=== PATIENT | female | born 1970 | race Caucasian/White ===

== ENCOUNTER 2021-05-05 12:41 | Inpatient (IN) | payer OTHER ==
--- OUTSIDE RECORDS SUMMARY | 2021-05-05 12:47 | XMS REPORT | Continuity of Care Document ---
:1970 Author Organization [facility] t Address [address] [place] [address] Care Team Providers Name Role Phone Troy Marques Primary Care Physician Unavailable HEIDE_ Attending Clinician Unavailable Reji Alanis Attending Clinician Unavailable Reji Branham Attending Clinician Unavailable Katerina Attending Clinician Unavailable Patt Attending Clinician Unavailable Clarissa Davison Attending Clinician Unavailable Jos Smith Attending Clinician Unavailable ANUEL BAH Attending Clinician Unavailable Ngozi Lincoln Attending Clinician Unavailable ALEX BENAVIDES Attending Clinician Unavailable CHELE FAUSTIN Attending Clinician Unavailable Vernon Attending Clinician Unavailable ESDRAS Attending Clinician Unavailable WALT HAGER Attending Clinician Unavailable Jos Smith Attending Clinician Unavailable Jos Smith Attending Clinician Unavailable Itz GOODMAN Attending Clinician Unavailable Carlos DIAZ Attending Clinician Unavailable Moris VERDE Attending Clinician Unavailable CLAUDETTE Attending Clinician Unavailable Jeison MANUEL Attending Clinician Unavailable VICKY MENSAH Attending Clinician Unavailable Ngozi SAGE Attending Clinician Unavailable Physician, Primary Care Admitting Clinician Unavailable HEIDE_ Admitting Clinician Unavailable Reji Alanis Admitting Clinician Unavailable Patt Admitting Clinician Unavailable Physician, Primary or Family Admitting Clinician UnavailCHELE Barr Admitting Clinician Unavailable Vernno Admitting Clinician Unavailable ESDRAS Admitting Clinician Unavailable SEVEN Admitting Clinician Unavailable Jos Smith Admitting Clinician Unavailable Payers Payer Name Policy Type Policy Number Effective Date Expiration Date S ource RCA SSI PENDING [id number] 2018 00:00:00 [facility] [id number] 2020 [facility] - 00:00:00 STAR (MEDICAID HMO) Problems Condition Condition Condition Status Onset Resolution Last Treating Co mments Source Name Details Category Date Date Treatment Clinician Date SOB Diagnosis Active 2020-09-09 Mem oria 7-16 23:52:00 l SOB 00:00: Raúl 00 Active 09/09/2020 [facility] ACUTE Diagnosis Active 2020-09-25 Mem oria RESPIRATOR 7-16 12:09:00 l Y FAILURE ACUTE 00:00: Ace n WITH RESPIRATOR 00 HYPOXIA Y FAILURE WITH HYPOXIA Active [facility] WEAKNESS , Diagnosis Active 2019-07-10 Memoria VOMITING 5-15 17:37:00 l WEAKNESS 00:00: Ace n , VOMITING 00 Active 07/10/2019 [facility] 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 Problem 09/12/2020 [facility] History of Past Illness Condition Condition Condition Status Onset Resolution Last Treating Co mments Source Name Details Category Date Date Treatment Clinician Date Candidal Problem 2019-07-13 2019-07-13 Memoria stomatitis 5-16 21:05:01 21:05:01 l Candidal 17:00: Ace n stomatitis 00 07/11/2019 07/13/2019 [facility] Allergies, Adverse Reactions, Alerts Allergy Allergy Status Severity Reaction(s) Onset Inactive Treating Comm ents Source Name Type Date Date Clinician sulfamet DA Active U UNKNOWN 2020-02 [facility] hoxazole 0-14 [place] [facility]: [facility] 00 are [facility] trimetho DA Active U UNKNOWN 2020-02 [facility] prim 0-14 [place] 00:00: Health 00 are [facility] sulfamet DA Active U 2020-02 [facility] hoxazole 0-[facility] [place] 00:[facility]: [facility] [address] trimetho DA Active U 2020-02 [facility] prim 0-14 [place] 00:[facility]: Health [address] Unable DA Active U [facility] 4- [facility] 00:00: 00 sulfamet DA Active [place] Hives [facility] hoxazole 4 00:00: 00 trimetho DA Active [place] Hives [facility] prim 4 00:00: 00 sulfamet DA Active [place] [facility] [place] [facility] prim [facility] [place] [facility] sulfamet DA Active [place] [facility] hoxazole 9 [place] [facility] trim[facility]o [place] Active [place] [facility] prim 9 [place] 00:[facility]: [facility] No Known DA Active [facility] Allergie 8-27 [facility] 00:00: Health 00 are [facility] Bactrim Bactrim Active Sandra Donisann Bactrim Drug Active [facility] Bactrim Drug Active [facility] Bactrim Drug Active [facility] Bactrim Drug Active [facility] Bactrim Drug Active [facility] Bactrim Drug Active [facility] Bactrim Drug Active [facility] Bactrim Drug Active [facility] Bactrim Drug Active [facility] Bactrim Drug Active [facility] Bactrim Drug Active [facility] Bactrim Drug Active [facility] Bactrim Drug Active [facility] Bactrim Drug Active [facility] Bactrim Drug Active [facility] Bactrim Drug Active [facility] Bactrim Drug Active [facility] Social History Smoking Status Start Date Stop Date Source Social History 2020-09-11 09:44:43 2020-09-11 09:44:43 [facility] Social History 2019-07-11 07:01:51 [facility] Medications Ordered Filled Start Stop Current Ordering Indication Dosage Frequency Signature Comments Components Source Medication Medication Date Date Medication? Clinician (SIG) Name Name vancomycin Yes 2000 mg: Me moria + Sodium 7-19 infuse l Chloride 05:00: over 2.5 Rody nn 0.9% IV 250 00 hours For mL adult patients only: Round to nearest 250 mg per Medical Staff approval MEDICATION WASTE Product Size: 1000 mg Product Wasted: ___ mg vancomycin No 2000 mg: Me moria + Sodium 7-18 infuse l Chloride 21:00: over 2.5 Rody nn 0.9% IV 250 00 hours For mL adult patients only: Round to nearest 250 mg per Medical Staff approval MEDICATION WASTE Product Size: 1000 mg Product Wasted: ___ mg Vancomycin Yes Notes: Memor ia 7-18 Vancomycin l 20:21: Pharmacy Raúl 31 Dosing Protocol PHARMAC Y USE ONLY Note: This is not a medication order. This is a consultati on order. Protonix Yes Notes: Memoria 7-18 Tablet l 14:00: should not [place] 00 be chewed or crushed. (Same as: Protonix) Prednisone No Notes: Memor ia 7-18 Take with l 14:00: food. Raúl 00 Atovaquone Yes Notes: Memor ia 7-18 Shake l 13:00: well. Give Raúl 00 with meals. (Same As: Mepron) Azithromyci No Notes: Carlos cheko n 7-18 (Same As: l 06:07: Zithromax Raúl 00 IV) Diflucan Yes Notes: Memoria 7-18 (Same as: l 04:59: Diflucan) [place] 00 Hazardous Drug Group 3:Reproduc tive risk Hazardous Drug -- Refer to safe handling procedure PPE Matrix Diflucan No Notes: Memoria 7-18 (Same as: l 02:11: Diflucan) [place] 00 Hazardous Drug Group 3:Reproduc tive risk Hazardous Drug -- Refer to safe handling procedure PPE Matrix Prednisone Yes Notes: Memor ia 7-18 Take with l 00:15: food. Dextrose Yes 12.5 gm, Memor ia 50% Syringe 7-17 25 mL, l (D50W) 19:43: Route: IVP, Drug Form: INJ, Dosing Weight 50, kg, PRN, PRN Blood Glucose Results, Start date: 09/10/20 14:43:00 CDT, Duration: 30 day, Stop date: 10/10/20 14:42:00 CDT, 0 Glucagon Yes 1 mg, Memoria 7-17 Route: IM, l 19:43: Drug form: PDR/INJ, PRN, Dosing Weight 50, kg, PRN Blood Glucose Results, Start date: 09/10/20 14:43:00 CDT, Duration: 30 day, Stop date: 10/10/20 14:42:00 CDT, 0 Docusate Yes Notes: Memoria 7-17 (Same as: l 19:43: Colace) (Do Not Crush) POLYETHYLEN Yes Notes: Carlos cheko E GLYCOL 7-17 Dissolve l 3350 19:43: in 8 oz of water or juice. (Same as: Miralax) Bisacodyl Yes Notes: Memori a 7-17 (Same As: l 19:43: Dulcolax, Bisco-Lax) Ondansetron Yes Notes: Carlos cheko 7-17 (Same as: l 19:43: Zofran) MEDICATION WASTE Product Size: 4 mg Product Wasted: ___ mg Diphenhydra Yes 25 mg, 1 Me moria mine 7-17 tab, l 19:43: Route: PO, Drug form: TAB, Q6H, Dosing Weight 50, kg, PRN as needed for allergy symptoms, Start date: 09/10/20 14:43:00 CDT, Duration: 30 day, Stop date: 10/10/20 14:42:00 CDT, 0 Melatonin Yes Notes: Memori a 7-17 (Same as: l 19:43: Melatonin) Trazodone Yes Notes: Memori a - (Same As: l 19:43: Desyrel) Raúl 00 Acetaminoph Yes Notes: Do M emoria en 09-10 not exceed l 19:43: 4 gm/day. Raúl 00 (Same as: Tylenol) Hydralazine Yes Notes: Carlos cheko - (Same as: l 19:43: Apresoline ) Push over 5 minutes Nicotine Yes Notes: Memoria - (Same as: l 19:43: Habitrol) "Remove old patch before applicatio n of new patch" WASTE: F/P - P Waste Black; E - P Waste Black Acetaminoph Yes Notes: Carlos cheko en 325 MG / 09-10 (Same as: l Hydrocodone 19:43: [place] Rody nn Bitartrate 00 325/5) Do 5 MG Oral not exceed Tablet 4gm/day of [[place] acetaminop 5/325] hen. Tessalon Yes Notes: Memoria Perles 09-10 (Same As: l 19:43: Tessalon Perles) "Do Not Crush" Mucinex Yes Notes: Memoria 09-10 (Same as: l 19:43: Guaifenesi n LA, Humibid LA, Mucinex) "Do Not Crush" Take medication with plenty of water. Simethicone Yes Notes: Carlos cheko 09-10 (Same as: l 19:43: Mylicon) Maalox Yes Notes: Memoria Advanced 09-10 (aluminum l Regular 19:43: hydroxide- Herm radha Strength 00 magnesium SUSP hyd-simeth icone 200-200-20 mg/5ml 30 ml ud BEBETO) Albuterol Yes Notes: Memori a 0.833 MG/ML 09-10 (Same as: l / 19:43: Duoneb) Ipratropium 00 [place] 0.167 MG/ML Inhalant Solution [DuoNeb] phenol Yes Notes: Memoria 09-10 WASTE: F/P l 19:43: - Black; E Raúl 00 - Municipal Trash Bin Artificial Yes 1 drp, Memor ia Tears - Route: l 19:43: Each [place] 00 Affected Eye, QID, Drug form: SOLN, PRN Dry Eyes, Start date: 09/10/20 14:43:00 CDT, Duration: 30 day, Stop date: 10/10/20 14:42:00 CDT, 0 Lidocaine Yes Notes: Memori a 0.05 MG/MG -17 Apply only l Transdermal 19:43: once for He rmann Patch 00 up to 12 hours in a 24-hour period (12 hours on and 12 hours off). (Same as: Aspercreme Lidocaine Patch) "Remove old patch before applicatio n of new patch" Lactulose Yes Notes: Memori a 667 MG/ML -17 (Same l Oral 19:43: as:Chronul [place] Solution 00 ac) Benzocaine Yes Notes: Memor ia 15 MG / -17 Same as: l Menthol 3.6 19:43: Cepacol Her torres MG Lozenge 00 [Cepacol Sore Throat Pain Relief 15/3.6] Potassium Yes Notes: Memori a Chloride - (Same as: l 19:43: K-Dur 20) "Do Not Crush" Give with food and full glass of water For patients unable to swallow tablet, dissolve in one half glass of water. Allow about 2 minutes for the tablets to disintegra te. Stir before giving to prepare slurry and administer . Please exclude Patient s with feeding tube less than 14 Danish (Dobhoff, J-tube etc) and pediatric and patients. potassium Yes Notes: Memori a phosphate-s - (Same as: l odium 19:43: Phos-NaK) phosphate 00 Each 1.5 250 mg-280 gm pkt has mg-160 mg 250mg oral powder phosphorou for s. Mix reconstitut w/2.5oz ion water and stir. potassium Yes Notes: Memori a phosphate -17 (Same as: l 19:43: K [place] Phosphate. ) Do not infuse phosphorou s concurrent ly in the same line as TPN or IVF that contains calcium. For double lumen central lines, phosphorou s may be infused in a separate lumen from TPN. 1 mMol phoshate has 1.47 mEq potassium Infuse over 4 hours sodium Yes Notes: Memoria phosphate 7-17 Infuse l 19:43: over 4 [place] 00 hour. Do not infuse phosphorou s concurrent ly in the same line as TPN or IVF that contains calcium. For double lumen central lines, phosphorou s may be infused in a separate lumen from TPN. Magnesium Yes Notes: Memori a Sulfate 09-10 WASTE: F/P l 19:43: - Sink; E [place] 00 - Municipal Trash Bin Magnesium Yes Notes: Memori a Oxide - (Same as: l 19:43: Mag-Ox [place] 400) Magnesium oxide [id number] g elemental magnesium Dose=____m g magnesium oxide (___mg elemental magnesium) Calcium Yes Notes: Memoria Gluconate - WASTE: F/P l 19:43: - Sink; E Raúl 00 - Municipal Trash Bin Diflucan No 400 mg, Memori a 7-17 200 mL, l 16:00: Route: [place] 00 IVPB, Drug form: INJ, [id number], Dosing Weight 50, kg, Start date: 09/10/20 11:00:00 CDT, Duration: 7 day, Stop date: 09/16/20 11:00:00 CDT, ABX Indication : ED - Suspected Sepsis, 0 nurse to No nurse to Memor ia update - update l ht,wt,aller 12:30: ht,wt,quentin Raúl gy profile 00 rgy profile, reminder, Drug form: MISC, Route: MISC, Q10Min, 09/10/20 7:30:00 CDT, Stop date: 10/10/20 7:20:00 CDT, 0 Albuterol Yes Notes: Memori a 0.833 MG/ML -17 (Same as: l / 08:00: Duoneb) Raúl Ipratropium 00 [place] 0.167 MG/ML Inhalant Solution cefepime No Notes: Memoria 7-17 (Same As: l 07:00: Maxipime) MEDICATION WASTE Product Size: 1000 mg Product Wasted: ___ mg Lovenox Yes Notes: Memoria 7-17 (Same as: l 07:00: Lovenox) [place] 00 Acetaminoph No Notes: Do M emoria en 09-10 not exceed l 06:08: 4 gm/day. [place] (Same as: Tylenol) Guaifenesin Yes Notes: Carlos cheko -17 (Same as: l 06:08: Robitussin ) Albuterol Yes Notes: Memori a 0.833 MG/ML - (Same as: l / 06:08: Duoneb) Ipratropium 00 [place] 0.167 MG/ML Inhalant Solution Sodium Yes 1,000 mL, Memori a Chloride - Rate: 100 l 0.9% IV 06:08: ml/hr, Raúl 1,000 mL 00 Infuse over: 10 hr, Route: IV, Dosing Weight 61.364 kg, Total Volume: 1,000, Start date: 09/10/20 1:08:00 CDT, Duration: 30 day, Stop date: 10/10/20 1:07:00 CDT, BSA: 1.65 m2, 0 Saline Yes Notes: Memoria Flush 0.9% -17 (Same as: l 06:08: BD [place] 00 Posiflush) Nystatin Yes Notes: Memoria 545820 -17 (Same l UNT/ML Oral 06:08: as:Mycosta Raúl Suspension 00 tin) Shake well. Ceftriaxone No 1 gm, Memor ia 09-10 Route: l 04:48: IVPB, Raúl 00 ONCE, Dosing Weight 61.364, kg, Priority: STAT, Start date: 09/09/20 23:48:00 CDT, Stop date: 09/09/20 23:48:00 CDT, ABX Indication : Pneumonia Azithromyci Yes Notes: Carlos cheko n -17 (Same As: l 04:48: Zithromax Raúl 00 IV) Albuterol No Notes: Memori a 0.833 MG/ML 7-17 (Same as: l / 03:09: Duoneb) Raúl Ipratropium 00 [place] 0.167 MG/ML Inhalant Solution methylPREDN Yes Notes: Carlos cheko ISolone 7-17 (Same l SODium 03:08: as:Solu-ME Rody nn SUCCinate 00 DROL, A-Methapre d) fluconazole Yes 200 mg = 1 Memoria 200 mg oral 5-16 tab, PO, l tablet 09:12: Daily, X Raúl 00 10 day, # 10 tab, 0 Refill(s) Fluconazole No Notes: Carlos cheko 5-16 (Same as: l 06:59: Diflucan) Raúl 00 Hazardous Drug Group 3:Reproduc tive risk Hazardous Drug -- Refer to safe handling procedure PPE Matrix Vital Signs Vital Name Observation Time Observation Value Comments Source Height/Length Measured 2021-03-14 08:36:38 153 cm Weight Dosing 2021-03-14 08:36:38 45.60 kg Height/Length Measured 2021-03-14 08:36:32 153 cm Weight Dosing 2021-03-14 08:36:32 45.60 kg Height/Length Measured 2021-03-14 08:36:09 153 cm Weight Dosing 2021-03-14 08:36:09 45.60 kg Height/Length Measured 2021-03-14 08:35:49 153 cm Weight Dosing 2021-03-14 08:35:49 45.60 kg Height/Length Measured 2021-03-14 08:34:50 153 cm Height/Length Measured 2021-03-14 08:34:49 153 cm Height/Length Measured 2021-03-14 08:34:46 153 cm Height/Length Measured 2021-03-14 08:34:42 153 cm Height/Length Measured 2021-03-14 08:34:28 153 cm Height/Length Measured 2021-03-14 08:34:22 153 cm Height/Length Measured 2021-03-14 08:34:19 153 cm Height/Length Measured 2019-03-10 13:21:45 Height/Length Measured 2019-03-10 07:47:35 Heart Rate 2020-09-12 04:51:41 [facility]l Systolic (mm Hg) 2020-09-12 04:51:30 Carlos rial [place] Diastolic (mm Hg) 2020-09-12 04:51:30 Mem orial Raúl Heart Rate 2020-09-12 04:51:30 [facility] [place] Temperature Oral (F) 2020-09-12 04:51:18 97.6 F [facility] [place] Respitory Rate 2020-09-12 01:00:00 Memori al [place] Heart Rate 2020-09-12 00:54:24 [facility] [place] Temperature Oral (F) 2020-09-12 00:54:00 98.5 F [facility] [place] Systolic (mm Hg) 2020-09-12 00:53:53 Carlos rial [place] Diastolic (mm Hg) 2020-09-12 00:53:53 Mem orial [place] Systolic (mm Hg) 2020-09-11 21:28:02 Carlos rial [place] Diastolic (mm Hg) 2020-09-11 21:28:02 Mem orial [place] Temperature Oral (F) 2020-09-11 21:27:14 98 F [facility] [place] Height 2020-09-11 20:21:00 152.4 cm [facility] Weight 2020-09-11 20:21:00 [facility] [place] Respitory Rate 2020-09-11 12:37:00 Memori al [place] Height 2020-09-11 01:02:00 152.4 cm [facility] [place] Weight 2020-09-11 01:02:00 [facility] [place] BMI Calculated 2020-09-11 01:02:00 Memori al [place] Respitory Rate 2020-09-10 23:20:00 Memori al [place] Height 2020-09-10 13:48:00 152.4 cm [facility] BMI Calculated 2020-09-10 13:48:00 Memori al [place] Weight 2020-09-10 13:48:00 [facility] [place] Initial DRG Weight: 2020-06-26 00:06:41 1.2791 Working DRG Weight: 2020-06-26 00:06:41 1.2791 Head exam ED 2020-06-26 00:06:41 atraumatic Height (ft in) 2020-06-26 00:06:41 4 feet 11.84 inches Weight for Nutrition 2020-06-26 00:06:41 41671\\S\\1520.308 Assessment Have you Lost Weight 2020-06-26 00:06:41 Yes Without Trying in the Past 6 Months? Weight (lbs) 2020-06-26 00:06:41 95 pounds 0.308 ounces Respiratory exam 2020-06-26 00:06:41 normal breath sounds /min 02 Sat by Pulse 2020-06-26 00:06:41 96 /min Oximetry Body Mass Index 2020-06-26 00:06:41 18.6 Body Mass Index (BMI) 2020-06-26 00:06:41 Normal Classification Height 2020-06-26 00:06:41 152\\S\\59.84 Pulse Rate 2020-06-26 00:06:41 83 /min Pulse Strength 2020-06-26 00:06:41 Normal /min Respiratory Rate 2020-06-26 00:06:41 20 /min Respiratory Depth 2020-06-26 00:06:41 Normal /min Respiratory Effort 2020-06-26 00:06:41 Spontaneous /min Respiratory Pattern 2020-06-26 00:06:41 Normal /min Temperature 2020-06-26 00:06:41 98.1\\S\\208.6 Weight 2020-06-26 00:06:41 17964.275\\S\\1520 Weight Measurement 2020-06-26 00:06:41 Built in Bedscale Method Weight for Nutrition 2020-06-22 18:19:06 20736\\S\\1520.308 Assessment Have you Lost Weight 2020-06-22 18:19:06 Yes Without Trying in the Past 6 Months? Weight (lbs) 2020-06-22 18:19:06 95 pounds 0.308 ounces Respiratory exam 2020-06-22 18:19:06 normal breath sounds /min 02 Sat by Pulse 2020-06-22 18:19:06 96 /min Oximetry Body Mass Index 2020-06-22 18:19:06 18.6 Body Mass Index (BMI) 2020-06-22 18:19:06 Normal Classification Height 2020-06-22 18:19:06 152\\S\\59.84 Pulse Rate 2020-06-22 18:19:06 83 /min Pulse Strength 2020-06-22 18:19:06 Normal /min Respiratory Rate 2020-06-22 18:19:06 20 /min Respiratory Depth 2020-06-22 18:19:06 Normal /min Respiratory Effort 2020-06-22 18:19:06 Spontaneous /min Respiratory Pattern 2020-06-22 18:19:06 Normal /min Temperature 2020-06-22 18:19:06 98.1\\S\\208.6 Weight 2020-06-22 18:19:06 92374.275\\S\\1520 Weight Measurement 2020-06-22 18:19:06 Built in Bedscale Method Initial DRG Weight: 2020-06-22 18:19:05 1.2791 Working DRG Weight: 2020-06-22 18:19:05 1.2791 Head exam ED 2020-06-22 18:19:05 atraumatic Height (ft in) 2020-06-22 18:19:05 4 feet 11.84 inches Initial DRG Weight: 2020-06-21 11:00:37 1.2791 Working DRG Weight: 2020-06-21 11:00:37 1.2791 Head exam ED 2020-06-21 11:00:37 atraumatic Height (ft in) 2020-06-21 11:00:37 4 feet 11.84 inches Weight for Nutrition 2020-06-21 11:00:37 88134\\S\\1520.308 Assessment Have you Lost Weight 2020-06-21 11:00:37 Yes Without Trying in the Past 6 Months? Weight (lbs) 2020-06-21 11:00:37 95 pounds 0.308 ounces Respiratory exam 2020-06-21 11:00:37 normal breath sounds /min 02 Sat by Pulse 2020-06-21 11:00:37 96 /min Oximetry Body Mass Index 2020-06-21 11:00:37 18.6 Body Mass Index (BMI) 2020-06-21 11:00:37 Normal Classification Height 2020-06-21 11:00:37 152\\S\\59.84 Pulse Rate 2020-06-21 11:00:37 83 /min Pulse Strength 2020-06-21 11:00:37 Normal /min Respiratory Rate 2020-06-21 11:00:37 20 /min Respiratory Depth 2020-06-21 11:00:37 Normal /min Respiratory Effort 2020-06-21 11:00:37 Spontaneous /min Respiratory Pattern 2020-06-21 11:00:37 Normal /min Temperature 2020-06-21 11:00:37 98.1\\S\\208.6 Weight 2020-06-21 11:00:37 94244.275\\S\\1520 Weight Measurement 2020-06-21 11:00:37 Built in Bedscale Method Initial DRG Weight: 2020-06-21 10:30:54 1.2791 Working DRG Weight: 2020-06-21 10:30:54 1.2791 Head exam ED 2020-06-21 10:30:54 atraumatic Height (ft in) 2020-06-21 10:30:54 4 feet 11.84 inches Weight for Nutrition 2020-06-21 10:30:54 22916\\S\\1520.308 Assessment Have you Lost Weight 2020-06-21 10:30:54 Yes Without Trying in the Past 6 Months? Weight (lbs) 2020-06-21 10:30:54 95 pounds 0.308 ounces Respiratory exam 2020-06-21 10:30:54 normal breath sounds /min 02 Sat by Pulse 2020-06-21 10:30:54 96 /min Oximetry Body Mass Index 2020-06-21 10:30:54 18.6 Body Mass Index (BMI) 2020-06-21 10:30:54 Normal Classification Height 2020-06-21 10:30:54 152\\S\\59.84 Pulse Rate 2020-06-21 10:30:54 83 /min Pulse Strength 2020-06-21 10:30:54 Normal /min Respiratory Rate 2020-06-21 10:30:54 20 /min Respiratory Depth 2020-06-21 10:30:54 Normal /min Respiratory Effort 2020-06-21 10:30:54 Spontaneous /min Respiratory Pattern 2020-06-21 10:30:54 Normal /min Temperature 2020-06-21 10:30:54 98.1\\S\\208.6 Weight 2020-06-21 10:30:54 26589.275\\S\\1520 Weight Measurement 2020-06-21 10:30:54 Built in Bedscale Method Height (ft in) 2020-06-21 10:08:51 4 feet 11.84 inches Weight for Nutrition 2020-06-21 10:08:51 00767\\S\\1520.308 Assessment Have you Lost Weight 2020-06-21 10:08:51 Yes Without Trying in the Past 6 Months? Weight (lbs) 2020-06-21 10:08:51 95 pounds 0.308 ounces Respiratory exam 2020-06-21 10:08:51 normal breath sounds /min 02 Sat by Pulse 2020-06-21 10:08:51 96 /min Oximetry Body Mass Index 2020-06-21 10:08:51 18.6 Body Mass Index (BMI) 2020-06-21 10:08:51 Normal Classification Height 2020-06-21 10:08:51 152\\S\\59.84 Pulse Rate 2020-06-21 10:08:51 83 /min Pulse Strength 2020-06-21 10:08:51 Normal /min Respiratory Rate 2020-06-21 10:08:51 20 /min Respiratory Depth 2020-06-21 10:08:51 Normal /min Respiratory Effort 2020-06-21 10:08:51 Spontaneous /min Respiratory Pattern 2020-06-21 10:08:51 Normal /min Temperature 2020-06-21 10:08:51 98.1\\S\\208.6 Weight 2020-06-21 10:08:51 26996.275\\S\\1520 Weight Measurement 2020-06-21 10:08:51 Built in Bedscale Method Initial DRG Weight: 2020-06-21 10:08:51 1.2791 Working DRG Weight: 2020-06-21 10:08:51 1.2791 Head exam ED 2020-06-21 10:08:51 atraumatic Initial DRG Weight: 2020-06-20 14:50:57 1.2791 Working DRG Weight: 2020-06-20 14:50:57 1.2791 Head exam ED 2020-06-20 14:50:57 atraumatic Height (ft in) 2020-06-20 14:50:57 4 feet 11.84 inches Weight for Nutrition 2020-06-20 14:50:57 22612\\S\\1520.308 Assessment Have you Lost Weight 2020-06-20 14:50:57 Yes Without Trying in the Past 6 Months? Weight (lbs) 2020-06-20 14:50:57 95 pounds 0.308 ounces Respiratory exam 2020-06-20 14:50:57 normal breath sounds /min 02 Sat by Pulse 2020-06-20 14:50:57 98 /min Oximetry Body Mass Index 2020-06-20 14:50:57 18.6 Body Mass Index (BMI) 2020-06-20 14:50:57 Normal Classification Height 2020-06-20 14:50:57 152\\S\\59.84 Pulse Rate 2020-06-20 14:50:57 93 /min Pulse Strength 2020-06-20 14:50:57 Normal /min Respiratory Rate 2020-06-20 14:50:57 20 /min Respiratory Depth 2020-06-20 14:50:57 Normal /min Respiratory Effort 2020-06-20 14:50:57 Spontaneous /min Respiratory Pattern 2020-06-20 14:50:57 Normal /min Temperature 2020-06-20 14:50:57 36.6\\S\\98 Weight 2020-06-20 14:50:57 24646.275\\S\\1520 Weight Measurement 2020-06-20 14:50:57 Built in Bedscale Method HEIGHT 2020-06-20 14:47:00 152 cm Initial DRG Weight: 2020-06-20 14:10:56 1.2791 Working DRG Weight: 2020-06-20 14:10:56 1.2791 Head exam ED 2020-06-20 14:10:56 atraumatic Have you Lost Weight 2020-06-20 14:10:56 Yes Without Trying in the Past 6 Months? Respiratory exam 2020-06-20 14:10:56 normal breath sounds /min 02 Sat by Pulse 2020-06-20 14:10:56 98 /min Oximetry Body Mass Index 2020-06-20 14:10:56 18.5 Height 2020-06-20 14:10:56 152.4\\S\\60 Pulse Rate 2020-06-20 14:10:56 93 /min Pulse Strength 2020-06-20 14:10:56 Normal /min Respiratory Rate 2020-06-20 14:10:56 20 /min Respiratory Depth 2020-06-20 14:10:56 Normal /min Respiratory Effort 2020-06-20 14:10:56 Spontaneous /min Respiratory Pattern 2020-06-20 14:10:56 Normal /min Temperature 2020-06-20 14:10:56 36.6\\S\\98 Weight 2020-06-20 14:10:56 34588.275\\S\\1520 Weight Measurement 2020-06-20 14:10:56 Built in Bedscale Method Initial DRG Weight: 2020-06-20 11:24:08 1.2791 Working DRG Weight: 2020-06-20 11:24:08 1.2791 Head exam ED 2020-06-20 11:24:08 atraumatic Have you Lost Weight 2020-06-20 11:24:08 Yes Without Trying in the Past 6 Months? Respiratory exam 2020-06-20 11:24:08 normal breath sounds /min 02 Sat by Pulse 2020-06-20 11:24:08 98 /min Oximetry Body Mass Index 2020-06-20 11:24:08 18.5 Height 2020-06-20 11:24:08 152.4\\S\\60 Pulse Rate 2020-06-20 11:24:08 93 /min Pulse Strength 2020-06-20 11:24:08 Normal /min Respiratory Rate 2020-06-20 11:24:08 20 /min Respiratory Depth 2020-06-20 11:24:08 Normal /min Respiratory Effort 2020-06-20 11:24:08 Spontaneous /min Respiratory Pattern 2020-06-20 11:24:08 Normal /min Temperature 2020-06-20 11:24:08 36.6\\S\\98 Weight 2020-06-20 11:24:08 11387.275\\S\\1520 Weight Measurement 2020-06-20 11:24:08 Built in Bedscale Method Body Mass Index 2020-06-19 21:40:41 18.5 Height 2020-06-19 21:40:41 152.4\\S\\60 Weight 2020-06-19 21:40:41 21979.275\\S\\1520 Body Mass Index 2020-06-19 21:22:21 18.5 Height 2020-06-19 21:22:21 152.4\\S\\60 Weight 2020-06-19 21:22:21 46465.275\\S\\1520 Body Mass Index 2020-06-19 21:20:49 18.5 Height 2020-06-19 21:20:49 152.4\\S\\60 Weight 2020-06-19 21:20:49 11241.275\\S\\1520 Body Mass Index 2020-06-19 21:19:17 18.5 Height 2020-06-19 21:19:17 152.4\\S\\60 Weight 2020-06-19 21:19:17 84933.275\\S\\1520 Body Mass Index 2020-06-19 21:09:37 18.5 Height 2020-06-19 21:09:37 152.4\\S\\60 Weight 2020-06-19 21:09:37 78444.275\\S\\1520 Body Mass Index 2020-06-19 20:21:06 18.5 Height 2020-06-19 20:21:06 152.4\\S\\60 Weight 2020-06-19 20:21:06 54421.275\\S\\1520 WEIGHT 2020-06-19 20:20:00 43.546515 kg HEIGHT 2020-06-19 20:20:00 152.4 cm Temperature Oral (F) 2019-07-11 09:22:00 98.4 F [facility] Heart Rate 2019-07-11 09:22:00 [facility] Respitory Rate 2019-07-11 09:22:00 [facility] [place] Systolic (mm Hg) 2019-07-11 09:22:00 [facility] Diastolic (mm Hg) 2019-07-11 09:22:00 [facility] Heart Rate 2019-07-11 06:04:00 [facility] Respitory Rate 2019-07-11 06:04:00 [facility] [place] Systolic (mm Hg) 2019-07-11 06:04:00 [facility] [place] Diastolic (mm Hg) 2019-07-11 06:04:00 [facility] Temperature Oral (F) 2019-07-11 06:04:00 97.7 F [facility] Temperature Oral (F) 2019-07-11 01:50:00 97.4 F [facility] Rate 2019-07-11 01:50:00 [facility] Respitory Rate 2019-07-11 01:50:00 [facility] [place] Systolic (mm Hg) 2019-07-11 01:50:00 [facility] Diastolic (mm Hg) 2019-07-11 01:50:00 [facility] [place] Heart Rate 2013-08-30 11:44:00 [facility] Temperature Oral (F) 2013-08-30 11:44:00 98.2 F [facility] Respitory Rate 2013-08-30 11:44:00 [facility] [place] Systolic (mm Hg) 2013-08-30 11:44:00 [facility] [place] Diastolic (mm Hg) 2013-08-30 11:44:00 [facility] Weight 2013-08-30 09:22:00 [facility] Height 2013-08-30 09:22:00 154.94 cm [facility] BMI Calculated 2013-08-30 09:22:00 [facility] Temperature Oral (F) 2013-08-30 09:22:00 98.2 F [facility] Rate 2013-08-30 09:22:00 [facility] Respitory Rate 2013-08-30 09:22:00 [facility] Systolic (mm Hg) 2013-08-30 09:22:00 [facility] [place] Diastolic (mm Hg) 2013-08-30 09:22:00 [facility] Procedures This patient has no known procedures. Encounters Start End Encounter Admission Attending Care Care Encounter Source Date/Time Date/Time Type Type Clinicians Facility Department ID 2020-12-08 Inpatient [facility] [id number] [facility] 16:02:00 [id number] [facility] 2019-10-29 Inpatient [facility] [id number] H arris 09:59:44 Health 2019-05-06 Inpatient [facility] [id number] [facility] 07:18:00 [id number] [facility] 2018-07-31 Inpatient [facility] [id number] H arris 19:03:13 Health 2016-05-26 Inpatient [facility] [id number] Gonzalez rris 20:57:40 [facility] 2021-05-01 2021-05-01 Outpatient GONZALEZ_DO [facility] [id number] Sharlene 03:12:00 03:12:00 TEAGN_ [id number] [facility] 2020-12-09 2020-12-09 Emergency E OLVIN, [facility] [id number] [facility] 10:32:00 10:32:00 YESSICA 2020-12-08 2020-12-08 Emergency EM Salazar, [facility] [id number] [facility] 16:02:00 20:37:00 Ramon Macedo [facility] 2020-12-06 2020-12-06 Emergency E DIEUDONNE [facility] [id number] [facility] 00:21:00 05:44:00 ERNESTO SUMMERS 2020-11-30 2020-12-02 Inpatient E RAMIN [facility] MED [id number] [facility] 10:32:00 15:00:00 NADYA 2020-09-25 2020-09-30 Inpatient E ESDRAS [facility] [id number] [facility] 13:05:00 15:26:00 JAARIEL 2020-09-10 2020-09-14 Inpatient E ALLEY [facility] [id number] 00:54:00 11:47:[address] [facility] 2020-09-10 2020-09-10 Inpatient [facility] [id number] Memoria 02:48:39 02:48:39 kwame Olsen 02 l [facility] 2019-12-02 2019-12-03 Emergency 1 Miki Smith [facility] [id number] 15:35:00 06:23:00 Miki Smith [facility] 2019-11-09 2019-11-09 Outpatient REX [facility] [id number] [facility] 00:00:00 00:00:00 ADONICA 2019-10-28 2019-10-30 [facility] [id number] [place] 09:55:22 14:23:00 [facility] 2019-10-28 2019-10-28 Emergency [facility] [id number] [place] 10:21:08 10:21:08 Health 2019-10-28 2019-10-28 Outpatient SUSHILA VERDE [facility] [id number] [facility] 00:00:00 00:00:00 2019-10-21 2019-10-21 Outpatient SUSHILA VERDE [facility] [id number] [facility] 00:00:00 00:00:00 2019-07-31 2019-07-31 Emergency [facility] [id number] 04:03:00 04:03:00 [facility] 2019-07-27 2019-07-27 Outpatient CLAUDETTE [facility] [id number] [facility] 09:57:41 09:57:49 TRAVIS 2019-07-22 2019-07-22 Outpatient [facility] [id number] [facility] 11:15:22 11:15:22 2019-07-10 2019-07-11 Emergency [facility] [id number] [facility] 18:33:05 09:23:[address] 2019-05-18 2019-05-18 Outpatient [facility] [id number] [facility] 10:05:25 10:05:25 2019-05-06 2019-05-06 Emergency [facility] [id number] [place] 10:24:49 10:24:49 [facility] 2019-05-06 2019-05-06 Emergency [facility] [id number] [place] 08:50:48 08:50:48 [facility] 2019-03-10 2019-03-10 Emergency [facility] [id number] 07:45:00 07:45:00 [facility] 2019-03-10 2019-03-10 Emergency [facility] [id number] 07:45:00 07:45:00 -[id number] [facility] 2019-03-10 2019-03-10 Outpatient [facility] [id number] [place] 00:00:00 00:00:00 Health 2019-03-02 2019-03-02 Outpatient [facility] [id number] [place] 00:00:00 00:00:00 Health 2019-02-24 2019-02-24 Outpatient [facility] [id number] [place] 10:42:49 10:42:49 Health 2019-02-24 2019-02-24 Outpatient [facility] [id number] [place] 00:00:00 00:00:00 [facility] 2019-02-16 2019-02-16 Outpatient [facility] [id number] [place] 08:21:09 08:21:09 [facility] 2019-02-15 2019-02-15 Outpatient [facility] [id number] [place] 00:00:00 00:00:00 [facility] 2019-02-15 2019-02-15 Outpatient [facility] [id number] [place] 00:00:00 00:00:00 [facility] 2019-02-14 2019-02-14 Outpatient [facility] [id number] [place] 02:59:15 02:59:15 [facility] 2019-02-13 2019-02-13 Emergency [facility] [id number] [place] 22:02:20 22:02:20 [facility] 2019-01-26 2019-01-26 Outpatient [facility] [id number] [place] 13:02:45 13:02:45 [facility] 2019-01-26 2019-01-26 Outpatient [facility] [id number] [place] 09:06:47 09:06:47 [facility] 2019-01-01 2019-01-01 Outpatient [facility] [id number] [place] 00:00:00 00:00:00 [facility] 2018-12-31 2018-12-31 Outpatient [facility] [id number] [place] 00:00:00 00:00:00 [facility] 2018-12-30 2018-12-30 Outpatient [facility] [id number] [place] 00:00:00 00:00:00 [facility] 2018-12-29 2018-12-29 Outpatient [facility] [id number] [place] 13:52:30 13:52:30 [facility] 2018-12-27 2018-12-27 Emergency [facility] [id number] [place] 20:40:00 20:40:00 [facility] 2018-12-26 2018-12-26 Emergency [facility] [id number] [place] 02:13:54 02:13:54 [facility] 2018-12-07 2018-12-10 Inpatient [facility] [id number] [place] 21:12:51 15:23:00 ANITA keller 2018-12-09 2018-12-09 Inpatient NICHOLE-MEMO [facility] [id number] [place] 15:16:43 15:16:45 [facility] 2018-12-08 2018-12-08 Inpatient NICHOLE-[facility]O [facility] [id number] [place] 15:18:37 15:18:39 ANTIS, [facility] HARRISON 2018-12-08 2018-12-08 Inpatient HADGU, [facility] [id number] [place] 09:16:32 09:16:37 MARIEL [facility] 2018-12-07 2018-12-07 Emergency [facility] [id number] [place] 22:29:51 22:56:15 [facility] 2018-12-02 2018-12-02 Outpatient [facility] [id number] [place] 00:00:00 00:00:00 [facility] 2018-11-19 2018-11-19 Outpatient [facility] [id number] [place] 13:07:17 13:07:17 Health 2018-11-19 2018-11-19 Outpatient [facility] [id number] [place] 11:06:38 11:06:38 Health 2018-11-19 2018-11-19 Outpatient [facility] [id number] [place] 00:00:00 00:00:00 [facility] 2018-11-12 2018-11-12 Outpatient [facility] [id number] [facility] 10:30:05 10:30:05 2018-11-12 2018-11-12 Outpatient [facility] [id number] [facility] 09:38:59 09:38:59 2018-11-04 2018-11-04 Outpatient [facility] [id number] [place] 00:00:00 00:00:00 [facility] 2018-11-04 2018-11-04 Outpatient [facility] [id number] [place] 00:00:00 00:00:00 [facility] 2018-10-21 2018-10-21 Outpatient [facility] [id number] [place] 00:00:00 00:00:00 [facility] 2018-10-07 2018-10-07 Outpatient [facility] [id number] [place] 00:00:00 00:00:00 [facility] 2018-09-24 2018-09-24 Outpatient [facility] [id number] [place] 00:00:00 00:00:00 [facility] 2018-09-17 2018-09-17 Outpatient [facility] [id number] [place] 00:00:00 00:00:00 [facility] 2018-09-17 2018-09-17 Outpatient [facility] [id number] [place] 00:00:00 00:00:00 [facility] 2018-09-10 2018-09-10 Outpatient [facility] [id number] [place] 00:00:00 00:00:00 [facility] 2018-09-09 2018-09-09 Outpatient [facility] [id number] [place] 10:30:50 10:30:50 [facility] 2018-08-26 2018-08-26 Outpatient [facility] [id number] [place] 00:00:00 00:00:00 [facility] 2018-08-14 2018-08-14 Outpatient [facility] [id number] [place] 22:48:16 22:48:16 Health 2018-08-13 2018-08-13 Outpatient [facility] [id number] [place] 00:00:00 00:00:00 [facility] 2018-07-29 2018-07-29 Emergency [facility] [id number] [place] 14:02:24 14:02:24 [facility] 2018-07-29 2018-07-29 Inpatient [facility] [id number] [place] 07:00:22 07:00:22 [facility] 2018-07-16 2018-07-16 Outpatient [facility] [id number] [place] 12:54:07 12:54:07 [facility] 2018-07-10 2018-07-10 Outpatient [facility] [id number] [place] 00:00:00 00:00:00 [facility] 2018-07-09 2018-07-09 Outpatient [facility] [id number] [place] 12:04:50 12:04:50 [facility] 2018-07-07 2018-07-07 Outpatient [facility] [id number] [place] 00:00:00 00:00:00 [facility] 2018-07-01 2018-07-01 Outpatient [facility] [id number] [place] 00:00:00 00:00:00 [facility] 2018-06-25 2018-06-25 Outpatient [facility] [id number] [place] 00:00:00 00:00:00 [facility] 2018-06-24 2018-06-24 Outpatient [facility] [id number] [place] 00:00:00 00:00:00 [facility] 2018-05-20 2018-05-20 Outpatient [facility] [id number] [place] 14:39:53 14:39:53 [facility] 2018-05-20 2018-05-20 Outpatient [facility] [id number] [place] 00:00:00 00:00:00 [facility] 2018-05-19 2018-05-19 Outpatient [facility] [id number] [place] 00:00:00 00:00:00 [facility] 2018-05-12 2018-05-12 Outpatient [facility] [id number] [place] 00:00:00 00:00:00 [facility] 2018-05-05 2018-05-05 Outpatient [facility] [id number] [place] 00:00:00 00:00:00 [facility] 2018-04-23 2018-04-23 Outpatient [facility] [id number] [place] 08:27:42 08:27:42 [facility] 2018-04-19 2018-04-19 Outpatient [facility] [id number] [place] 17:11:37 17:11:37 [facility] 2018-04-18 2018-04-18 Emergency [facility] [id number] [place] 04:53:00 04:53:00 [facility] 2018-04-17 2018-04-17 Outpatient [facility] [id number] [place] 17:24:46 17:24:46 [facility] 2018-04-03 2018-04-03 Emergency [facility] [id number] [place] 08:11:36 08:11:36 [facility] 2018-04-03 2018-04-03 Emergency [facility] [id number] [place] 06:56:00 06:56:00 [facility] 2018-03-25 2018-03-25 Outpatient [facility] [id number] [place] 00:00:00 00:00:00 [facility] 2018-02-26 2018-02-26 Outpatient [facility] [id number] [place] 00:00:00 00:00:00 [facility] 2018-02-17 2018-02-17 Emergency [facility] [id number] [place] 21:25:58 21:25:58 [facility] 2018-02-17 2018-02-17 Outpatient [facility] [id number] [place] 17:51:18 17:51:18 [facility] 2018-02-17 2018-02-17 Emergency [facility] [id number] [place] 17:38:42 17:38:42 [facility] 2018-02-12 2018-02-12 Outpatient [facility] [id number] [place] 00:00:00 00:00:00 [facility] 2018-01-29 2018-01-29 Outpatient [facility] [id number] [place] 00:00:00 00:00:00 [facility] 2018-01-28 2018-01-28 Outpatient [facility] [id number] [place] 00:00:00 00:00:00 [facility] 2018-01-22 2018-01-22 Outpatient [facility] [id number] [place] 00:00:00 00:00:00 [facility] 2018-01-13 2018-01-13 Outpatient [facility] [id number] [place] 00:00:00 00:00:00 [facility] 2018-01-06 2018-01-06 Outpatient [facility] [id number] [place] 07:43:33 07:43:33 Health 2018-01-03 2018-01-03 Emergency [facility] [id number] [place] 17:03:43 17:03:43 Health 2018-01-03 2018-01-03 Emergency [facility] [id number] [place] 16:48:46 16:48:46 [facility] 2017-12-25 2017-12-25 Outpatient [facility] [id number] [place] 00:00:00 00:00:00 [facility] 2017-12-23 2017-12-23 Outpatient [facility] [id number] [place] 00:00:00 00:00:00 [facility] 2017-12-20 2017-12-20 Outpatient [facility] [id number] [place] 00:00:00 00:00:00 [facility] 2017-12-16 2017-12-16 Outpatient [facility] [id number] [place] 00:00:00 00:00:00 [facility] 2017-12-12 2017-12-12 Emergency [facility] [id number] [place] 14:10:25 14:10:25 [facility] 2017-12-12 2017-12-12 Outpatient [facility] [id number] [place] 10:36:51 10:36:51 [facility] 2017-12-11 2017-12-11 Outpatient [facility] [id number] [place] 09:23:43 09:23:43 [facility] 2017-12-11 2017-12-11 Outpatient [facility] [id number] [place] 00:00:00 00:00:00 [facility] 2017-12-10 2017-12-10 Outpatient [facility] [id number] [place] 00:00:00 00:00:00 [facility] 2017-12-10 2017-12-10 Outpatient [facility] [id number] [place] 00:00:00 00:00:00 [facility] 2017-12-10 2017-12-10 Outpatient [facility] [id number] [place] 00:00:00 00:00:00 [facility] 2017-12-04 2017-12-04 Outpatient [facility] [id number] [place] 00:00:00 00:00:00 [facility] 2017-12-03 2017-12-03 Outpatient [facility] [id number] [place] 00:00:00 00:00:00 [facility] 2017-11-29 2017-11-29 Outpatient [facility] [id number] [place] 14:08:02 14:08:02 [facility] 2017-11-29 2017-11-29 Outpatient [facility] [id number] [place] 11:37:08 11:37:08 [facility] 2017-11-29 2017-11-29 Outpatient [facility] [id number] [place] 07:15:14 07:15:14 [facility] 2017-11-14 2017-11-14 Outpatient [facility] [id number] [place] 00:00:00 00:00:00 [facility] 2017-11-11 2017-11-11 Outpatient [facility] [id number] [place] 09:48:09 09:48:09 [facility] 2017-11-11 2017-11-11 Outpatient [facility] [id number] [place] 08:20:10 08:20:10 [facility] 2017-11-05 2017-11-05 Outpatient [facility] [id number] [place] 00:00:00 00:00:00 [facility] 2017-11-05 2017-11-05 Outpatient [facility] [id number] [place] 00:00:00 00:00:00 [facility] 2017-10-30 2017-10-30 Outpatient [facility] [id number] [place] 13:23:31 13:23:31 [facility] 2017-10-21 2017-10-21 Outpatient [facility] [id number] [place] 13:34:08 13:34:08 [facility] 2017-10-21 2017-10-21 Outpatient [facility] [id number] [place] 08:14:44 08:14:44 [facility] 2017-10-17 2017-10-17 Outpatient [facility] [id number] [place] 09:17:25 09:17:25 [facility] 2017-10-16 2017-10-16 Outpatient [facility] [id number] [place] 00:00:00 00:00:00 [facility] 2017-10-16 2017-10-16 Outpatient [facility] [id number] [place] 00:00:00 00:00:00 [facility] 2017-10-13 2017-10-13 Outpatient [facility] [id number] [place] 10:03:50 10:03:50 [facility] 2017-10-13 2017-10-13 Outpatient [facility] [id number] [place] 07:57:14 07:57:14 [facility] 2017-10-13 2017-10-13 Emergency [facility] [id number] [place] 06:47:00 06:47:00 [facility] 2017-10-11 2017-10-11 Outpatient [facility] [id number] [place] 13:12:55 13:12:55 [facility] 2017-09-24 2017-09-24 Outpatient [facility] [id number] [place] 09:31:05 09:31:05 [facility] 2017-09-24 2017-09-24 Outpatient [facility] [id number] [place] 00:00:00 00:00:00 [facility] 2017-09-23 2017-09-23 Outpatient [facility] [id number] [place] 00:00:00 00:00:00 [facility] 2017-09-17 2017-09-17 Emergency [facility] [id number] [place] 16:25:24 16:25:24 [facility] 2017-09-17 2017-09-17 Emergency [facility] [id number] [place] 15:32:38 15:32:38 [facility] 2017-09-17 2017-09-17 Outpatient [facility] [id number] [place] 10:11:11 10:11:11 [facility] 2017-09-17 2017-09-17 Outpatient [facility] [id number] [place] 09:57:24 09:57:24 [facility] 2017-08-26 2017-08-26 Outpatient [facility] [id number] [place] 00:00:00 00:00:00 [facility] 2017-08-20 2017-08-20 Outpatient [facility] [id number] [place] 00:00:00 00:00:00 [facility] 2017-08-07 2017-08-07 Outpatient [facility] [id number] [place] 14:09:55 14:09:55 [facility] 2017-08-05 2017-08-05 Outpatient [facility] [id number] [place] 00:00:00 00:00:00 [facility] 2017-08-01 2017-08-01 Emergency [facility] [id number] [place] 04:23:02 04:23:02 [facility] 2017-07-31 2017-07-31 Emergency [facility] [id number] [place] 23:56:26 23:56:26 [facility] 2017-07-31 2017-07-31 Outpatient [facility] [id number] [place] 14:27:49 14:27:49 [facility] 2017-07-26 2017-07-26 Outpatient [facility] [id number] [place] 00:00:00 00:00:00 [facility] 2017-07-17 2017-07-17 Outpatient [facility] [id number] [place] 09:52:29 09:52:29 [facility] 2017-07-17 2017-07-17 Outpatient [facility] [id number] [place] 09:48:13 09:48:13 [facility] 2017-07-16 2017-07-16 Outpatient [facility] [id number] [place] 09:46:08 09:46:08 [facility] 2017-07-10 2017-07-10 Outpatient [facility] [id number] [place] 12:55:46 12:55:46 [facility] 2017-07-04 2017-07-04 Emergency [facility] [id number] [place] 13:23:05 13:23:05 [facility] 2017-07-04 2017-07-04 Emergency [facility] [id number] [place] 08:18:28 08:18:28 [facility] 2017-07-04 2017-07-04 Emergency [facility] [id number] [place] 04:02:51 04:02:51 [facility] 2017-07-03 2017-07-03 Outpatient [facility] [id number] [place] 19:39:26 19:39:26 [facility] 2017-07-02 2017-07-02 Outpatient [facility] [id number] [place] 00:00:00 00:00:00 [facility] 2017-07-02 2017-07-02 Outpatient [facility] [id number] [place] 00:00:00 00:00:00 [facility] 2017-07-01 2017-07-01 Outpatient [facility] [id number] [place] 08:26:02 08:26:02 [facility] 2017-06-18 2017-06-18 Outpatient [facility] [id number] [place] 12:51:58 12:51:58 [facility] 2017-06-18 2017-06-18 Outpatient [facility] [id number] [place] 00:00:00 00:00:00 [facility] 2017-06-03 2017-06-03 Outpatient [facility] [id number] [place] 14:44:40 14:44:40 [facility] 2017-06-03 2017-06-03 Outpatient [facility] [id number] [place] 13:15:48 13:15:48 [facility] 2017-06-03 2017-06-03 [facility]patient [facility] [id number] [place] 12:54:46 12:54:46 [facility] 2017-06-03 2017-06-03 Outpatient [facility] [id number] [place] 11:58:55 11:58:55 [facility] 2017-05-15 2017-05-15 Outpatient [facility] [id number] [place] 14:40:08 14:40:08 [facility] 2017-05-13 2017-05-13 Outpatient [facility] [id number] [place] 09:09:19 09:09:19 [facility] 2017-05-09 2017-05-09 Emergency [facility] [id number] [place] 20:49:51 20:49:51 [facility] 2017-05-09 2017-05-09 Emergency [facility] [id number] [place] 20:14:00 20:14:00 [facility] 2017-05-07 2017-05-07 Outpatient [facility] [id number] [place] 00:00:00 00:00:00 [facility] 2017-04-29 2017-04-29 Outpatient [facility] [id number] [place] 00:00:00 00:00:00 [facility] 2017-04-05 2017-04-05 Outpatient [facility] [id number] [place] 14:44:31 14:44:31 [facility] 2017-04-01 2017-04-01 Outpatient [facility] [id number] [place] 11:13:37 11:13:37 [facility] 2017-03-27 2017-03-27 Outpatient [facility] [id number] [place] 00:00:00 00:00:00 [facility] 2017-03-25 2017-03-25 Outpatient [facility] [id number] [place] 00:00:00 00:00:00 [facility] 2017-03-22 2017-03-22 Outpatient [facility] [id number] [place] 08:19:14 08:19:14 [facility] 2017-03-21 2017-03-21 Outpatient [facility] [id number] [place] 00:00:00 00:00:00 [facility] 2017-03-20 2017-03-20 Outpatient [facility] [id number] [place] 10:34:30 10:34:30 [facility] 2017-03-18 2017-03-18 Outpatient [facility] [id number] [place] 13:32:29 13:32:29 [facility] 2017-03-14 2017-03-14 Outpatient [facility] [id number] [place] 00:00:00 00:00:00 [facility] 2017-03-05 2017-03-05 Emergency [facility] [id number] [place] 17:44:32 17:44:32 [facility] 2017-03-05 2017-03-05 Emergency [facility] [id number] [place] 09:41:51 09:41:51 [facility] 2017-03-02 2017-03-02 Emergency [facility] [id number] [place] 07:25:39 07:25:39 [facility] 2017-03-01 2017-03-01 Emergency [facility] [id number] [place] 22:26:12 22:26:12 [facility] 2017-02-15 2017-02-15 Outpatient [facility] [id number] [place] 00:00:00 00:00:00 [facility] 2017-02-12 2017-02-12 Outpatient [facility] [id number] [place] 00:00:00 00:00:00 [facility] 2017-02-08 2017-02-08 Outpatient [facility] [id number] [place] 00:00:00 00:00:00 [facility] 2017-02-08 2017-02-08 Outpatient [facility] [id number] [place] 00:00:00 00:00:00 [facility] 2017-02-06 2017-02-06 Outpatient [facility] [id number] [place] 00:00:00 00:00:00 [facility] 2017-02-05 2017-02-05 Outpatient [facility] [id number] [place] 10:12:32 10:12:32 [facility] 2017-02-05 2017-02-05 Outpatient [facility] [id number] [place] 09:00:21 09:00:21 [facility] 2017-02-01 2017-02-01 Outpatient [facility] [id number] [place] 13:30:08 13:30:08 [facility] 2017-01-30 2017-01-30 Outpatient [facility] [id number] [place] 00:00:00 00:00:00 [facility] 2017-01-30 2017-01-30 Outpatient [facility] [id number] [place] 00:00:00 00:00:00 [facility] 2017-01-30 2017-01-30 Outpatient [facility] [id number] [place] 00:00:00 00:00:00 [facility] 2017-01-23 2017-01-23 Outpatient [facility] [id number] [place] 13:41:41 13:41:41 [facility] 2017-01-22 2017-01-22 Outpatient [facility] [id number] [place] 09:51:50 09:51:50 [facility] 2017-01-22 2017-01-22 Outpatient [facility] [id number] [place] 00:00:00 00:00:00 [facility] 2017-01-07 2017-01-07 Outpatient [facility] [id number] [place] 10:39:18 10:39:18 [facility] 2017-01-07 2017-01-07 Outpatient [facility] [id number] [place] 00:00:00 00:00:00 [facility] 2016-12-29 2016-12-29 Outpatient [facility] [id number] [facility] 10:01:26 10:01:26 2016-12-21 2016-12-21 Outpatient [facility] [id number] [place] 11:31:50 11:31:50 [facility] 2016-12-19 2016-12-19 Outpatient [facility] [id number] [place] 10:02:46 10:02:46 [facility] 2016-12-12 2016-12-12 Outpatient [facility] [id number] [place] 00:00:00 00:00:00 [facility] 2016-12-04 2016-12-04 Outpatient [facility] [id number] [place] 08:13:23 08:13:23 [facility] 2016-12-03 2016-12-03 Outpatient [facility] [id number] [place] 00:00:00 00:00:00 [facility] 2016-11-30 2016-11-30 Outpatient [facility] [id number] [place] 15:34:57 15:34:57 [facility] 2016-11-30 2016-11-30 Outpatient [facility] [id number] [place] 14:18:24 14:18:24 [facility] 2016-11-30 2016-11-30 Outpatient [facility] [id number] [place] 00:00:00 00:00:00 [facility] 2016-11-29 2016-11-29 Outpatient [facility] [id number] [place] 00:00:00 00:00:00 [facility] 2016-11-29 2016-11-29 Outpatient [facility] [id number] [place] 00:00:00 00:00:00 [facility] 2016-11-27 2016-11-27 Emergency [facility] [id number] [place] 04:12:36 04:12:36 [facility] 2016-11-26 2016-11-26 Emergency [facility] [id number] [place] 23:36:00 23:36:00 [facility] 2016-11-26 2016-11-26 Emergency [facility] [id number] [place] 17:18:52 17:18:52 [facility] 2016-11-26 2016-11-26 Emergency [facility] [id number] [place] 11:18:19 11:18:19 [facility] 2016-11-23 2016-11-23 Outpatient [facility] [id number] [place] 00:00:00 00:00:00 [facility] 2016-11-14 2016-11-14 Outpatient [facility] [id number] [place] 00:00:00 00:00:00 [facility] 2016-11-09 2016-11-09 Outpatient [facility] [id number] [place] 13:06:59 13:06:59 [facility] 2016-11-09 2016-11-09 Outpatient [facility] [id number] [place] 12:10:56 12:10:56 [facility] 2016-11-09 2016-11-09 Outpatient [facility] [id number] [place] 11:18:04 11:18:04 [facility] 2016-11-09 2016-11-09 Outpatient [facility] [id number] [place] 11:12:31 11:12:31 [facility] 2016-11-05 2016-11-05 Emergency [facility] [id number] [place] 13:38:00 13:38:00 [facility] 2016-11-02 2016-11-02 Outpatient [facility] [id number] [place] 00:00:00 00:00:00 [facility] 2016-11-01 2016-11-01 Outpatient [facility] [id number] [place] 00:00:00 00:00:00 [facility] 2016-10-23 2016-10-23 Outpatient [facility] [id number] [place] 00:00:00 00:00:00 [facility] 2016-10-23 2016-10-23 Outpatient [facility] [id number] [place] 00:00:00 00:00:00 [facility] 2016-10-19 2016-10-19 Outpatient [facility] [id number] [place] 00:00:00 00:00:00 [facility] 2016-10-17 2016-10-17 Outpatient [facility] [id number] [place] 10:43:31 10:43:31 [facility] 2016-10-16 2016-10-16 Outpatient [facility] [id number] [place] 00:00:00 00:00:00 [facility] 2016-10-08 2016-10-08 Outpatient [facility] [id number] [place] 00:00:00 00:00:00 [facility] 2016-09-26 2016-09-26 Outpatient [facility] [id number] [place] 13:38:05 13:38:05 [facility] 2016-09-19 2016-09-19 Emergency [facility] [id number] [place] 22:01:09 22:01:09 [facility] 2016-09-19 2016-09-19 Emergency [facility] [id number] [place] 19:22:58 19:22:58 [facility] 2016-09-19 2016-09-19 Outpatient [facility] [id number] [place] 14:53:15 14:53:15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 [facility] ArlingtonJtdnoiyASHXLEFKUE9128-76-48 03:39:00 Test Item Value Reference Range Interpretation Comments INR (test code = INR) 1.01 1 0.85-1.17 [place] 957301-07-17 03:39:00 Test Item Value Reference Range Interpretation Comments RBC Morph (test code = Normal (09/09/20 10:39 RBC Morph) PM) [place] 957301-07-17 03:39:00 Test Item Value Reference Range Interpretation Comments Plt Morph (test code = Clumped (09/09/20 10:39 Plt Morph) PM) [place] 957301-07-17 03:39:00 Test Item Value Reference Range Interpretation Comments Segs (test code = Segs) 78.5 45.0-75.0 [place] 957301-07-17 03:39:00 Test Item Value Reference Range Interpretation Comments Lymphocytes (test code = Lymphocytes) 11.6 20.0-40.0 [place] 957301-07-17 03:39:00 Test Item Value Reference Range Interpretation Comments Monocytes (test code = Monocytes) 9.2 2.0-12.0 [place] 957301-07-17 03:39:00 Test Item Value Reference Range Interpretation Comments Eosinophils (test code = 0.3 See_Comment [A utomated message] The Eosinophils) system which ge nerated this result tra nsmitted reference range : <=4.0. The reference r mir was not used to int erpret this result as normal/abnormal . [facility] ArlingtonEemcbueXDPKJRNNZS6309-53-07 03:39:00 Test Item Value Reference Range Interpretation Comments Basophils (test code = 0.4 See_Comment [Aut omated message] The Basophils) system which ge nerated this result tra nsmitted reference range : <=1.0. The reference r mir was not used to int erpret this result as normal/abnormal . [facility] ArlingtonNqvabasUZXUFQXCDY4480-55-34 03:39:00 Test Item Value Reference Range Interpretation Comments Neutrophils # (test code = Neutrophils 9.9 1.5-8.1 #) [place] 957301-07-17 03:39:00 Test Item Value Reference Range Interpretation Comments Lymphocytes # (test code = Lymphocytes 1.5 1.0-5.5 #) [place] 957301-07-17 03:39:00 Test Item Value Reference Range Interpretation Comments Monocytes # (test code 1.2 See_Comment [Aut omated message] The = Monocytes #) system which generated this result tra nsmitted reference range : <=0.8. The reference r mir was not used to int erpret this result as normal/abnormal . [facility] CampusAooxroyYTAHATAXPJ9847-15-11 03:39:00 Test Item Value Reference Range Interpretation Comments Basophils # (test code 0.1 See_Comment [Aut omated message] The = Basophils #) system which generated this result tra nsmitted reference range : <=0.2. The reference r mir was not used to int erpret this result as normal/abnormal . [facility] CampusLsgsaklGHEEBGOFJR0863-63-99 03:39:00 Test Item Value Reference Range Interpretation Comments Coronavirus (COVID-19) Not Detected (09/09/20 ANT (test code = 10:39 PM) Coronavirus (COVID-19) ANT) [facility] Pelvis Comp w/Transvag if qncexokuo9260-49-77 21:57:57 Patient: ACSI BERMAN Date/Time12/02/2019 21:29 CDTReason for ExamEvaluation of endometrial stripe;Other (please specify)ReportLOCATION: [id number]: 49-year-old female who presents with abdominal pain. Recent CT imaging of the abdomen and pelvis demonstrated collections of gas in the endometrial space. This is a follow-up examination.COMMENT:Sonographic imaging of this patient's pelvis was obtained transabdominally and endovaginally. Grayscale, color-flow, and Doppler waveform imaging modalities were utilized.The uterus measures 6.2 x 3.0 x 3.4 cm.The endometrial stripe is 6 mm thick. There is evidence on the endovaginal examination of small collections of gas within the endometrial space demonstrating acoustic interface with posterior acoustic shadowing, which is in keeping with the recent CT findings. The source of this gas unclear and could be surgical sales representative of an inflammatory process. However, an iatrogenic source is not excluded.The right ovary is unremarkable measuring 20 x 11 x 13 mm. Low resistance arterial blood flow seen on the Doppler study. The left ovary is not seen.No adnexal masses are present and no free pelvic fluid is seen.IMPRESSION:There are collections of endometrial gas seen in this pelvic ultrasound study. Theunderlying source of this individual gas is not clear and could represent an infectious process or possibly an iatrogenic etiology.The right ovary is unremarkable, but the left ovary is not seen. Final Dictated by: MD Malave Robert LDictated DT/TM: 12/02/2019 9:55 pmSigned by: MD Malave Robert LSigned (Electronic Signature): 12/02/2019 9:57 pmCT Abdomen and Pelvis w/ Nsbbzlyi1828-06-69 19:15:30Patient: CASI BERMAN Date/Time12/02/2019 19:00 CDTReason for ExamAbdominal painReportLOCATION: [id number]: 49-year-old female who presents with abdominal pain.COMMENT:Axial CT imaging of this patient's abdomen and pelvis was obtained from the diaphragm to the pelvic floor with IV contrast. Coronal and sagittal soft tissue reconstructions were included.One or more of the following dose reduction techniques were used: Automated exposure control, adjustment of the mA and/or kV according the patient size, and/or utilization of iterative reconstruction technique.DLP: 266.5 mGy-cmCONTRAST: 100 mL of Omnipaque 300 nonionic contrast was injected. Serum creatinine level was 0.67 and the estimated GFR was greater than 60 mL/m.FINDINGS:The lung bases are clear. The cardiac silhouette is unremarkable.The liver, spleen, pancreas, adrenal glands, and kidneys exhibit no acute findings. The gallbladder is unremarkable.The stomach is moderately distended with food and fluid debris. Numerous loops of small intestine exhibit an unremarkable appearance. The appendix is best visualized on the coronal reconstruction and is unremarkable. No abnormalitiesare seen in the colon.There is no ascites seen and no adenopathy is present.In the pelvis the urinary bladder, and ovaries are unremarkable. There is evidence of gas within the uterine endometrial space. Clinical correlation is suggested regarding the possibility of this representing endometritis.The vascular anatomy is unremarkable.The musculoskeletal anatomy is unremarkable.IMPRESSION:Collections of gas are seen within the uterine endometrial space raising concern for endometritis.No acute findings are seen elsewhere in the abdomen or pelvis. Final Dictated by: MD Malave Robert LDictated DT/TM: 12/02/2019 7:12 pmSigned by: MD Malave Robert LSigned (Electronic Signature): 12/02/2019 7:15 [id number] 18:34:54 Test Item Value Reference Range Interpretation Comments RBC Morph (test code Normal Normal = RBC Morph) Platelet Morphology Platelet Clumping Normal A man y platelet (test code = clumps seen. Platelet Morphology) platele t count could be higher . Notified elenita malone RN 12/02/2019 18:34:47 CDT Anisocyte (test code None None = Anisocyte) Hypochromia (test None Seen None Seen code = Hypochromia) Microcyte (test code None Seen None Seen = Microcyte) Macrocyte (test code None Seen None Seen = Macrocyte) Poik (test code = None Seen None Seen Poik) Polychrom (test code None Seen None Seen = Polychrom) Acanthocyte (test None Seen None Seen code = Acanthocyte) Baso Stippling RBC None Seen None Seen (test code = Baso Stippling RBC) Plt Estimation (test Decreased Normal A code = Plt Estimation) Complete Blood Count with Yjntuvhrndcn1057-66-14 18:13:45 Test Item Value Reference Range Interpretation Comments WBC (test code = WBC) 7.8 x10 4.4-10.5 RBC (test code = RBC) 4.14 x10 3.75-5.20 Hgb (test code = Hgb) 12.9 g/dL 12.2-14.8 MCV (test code = MCV) 96.10 fL 80.00-100.00 Hct (test code = Hct) 39.8 % 36.5-44.4 MCHC (test code = 32.40 g/dL 32.00-37.50 MCHC) RDW CV (test code = 16.9 % 11.5-14.5 H RDW CV) MCH (test code = MCH) 31.2 pg 27.0-32.5 Platelets (test code = 24.0 x10 140.0-440.0 Criti ana results Platelets) called to elenita hayden RN_ at 12/02/2019 18:11 :47 CDT by krishna. Drea wells back and verified? y es MPV (test code = MPV) 11.0 fL N Slide Review (test Smear Auto A Result cr eated by code = Slide Review) GL_SJM_ SLIDE_REV_AUTO GL_SJM_XN_RFLX GL_SJM_XN_RFLX nRBC (test code = 0 N nRBC) NRBC Abs (test code = 0.00 x10 N NRBC Abs) Pos Count XN (test A N code = Pos Count XN) IPF (test code = IPF) 24 % N Automated [id number] 18:13:45 Test Item Value Reference Range Interpretation Comments Neutro Auto (test code = Neutro 70.2 % 36.0-70.0 H Auto) Lymph Auto (test code = Lymph Auto) 19.2 % 12.0-44.0 Hendricks Auto (test code = Hendricks Auto) 8.6 % 0.0-11.0 Eos, Auto (test code = Eos, Auto) 1.4 % 0.0-7.0 Basophil Auto (test code = Basophil 0.3 % 0.0-2.0 Auto) Neutro Absolute (test code = Neutro 5.5 x10 1.6-7.4 Absolute) Lymph Absolute (test code = Lymph 1.49 x10 .50-4.60 Absolute) Hendricks Absolute (test code = Hendricks .67 x10 .00-1.20 Absolute) Eos Absolute (test code = Eos 0.11 x10 0.00-0.74 Absolute) Baso Absolute (test code = Baso 0.02 x10 0.00-0.21 Absolute) IG [id number] 18:13:45 Test Item Value Reference Range Interpretation Comments IG (test code = IG) 0.3 % 0.0-5.0 IG Abs (test code = IG Abs) 0 x10 N Urinalysis with Culture, if [id number] 17:46:44 Test Item Value Reference Range Interpretation Comments UA Color (test code = UA Color) YELLO Yellow UA Appear (test code = UA CLEAR Clear Appear) UA pH (test code = UA pH) 7.0 UA Spec Grav (test code = UA 1.010 1.001-1.035 Spec Grav) UA Glucose (test code = UA NEG Negative Glucose) UA Bili (test code = UA Bili) NEG Negative UA Ketones (test code = UA NEG Negative Ketones) UA Blood (test code = UA Blood) NEG Negative UA Protein (test code = UA NEG Negative Protein) UA Urobilinogen (test code = UA .2 mg/dL >0.2 Urobilinogen) UA Nitrite (test code = UA NEG Negative Nitrite) UA Leuk Est (test code = UA NEG Negative Leuk Est) UA Micro Ind? (test code = UA Not Indicated Not Indicated Micro Ind?) Lipase [id number] 17:21:29 Test Item Value Reference Range Interpretation Comments Lipase Level (test code = Lipase 34 U/L 12-53 Level) Comprehensive Metabolic [id number] 17:21:28 Test Item Value Reference Range Interpretation Comments Sodium Level (test code = Sodium 140.0 mmol/L 136.0-145.0 Level) Potassium Level (test code = 4.00 mmol/L 3.50-5.10 Potassium Level) Chloride Level (test code = 104.0 mmol/L 98.0-107.0 Chloride Level) CO2 (test code = CO2) 31 mmol/L 20-31 Anion Gap (test code = Anion 5.0 mmol/L 5.0-15.0 Gap) BUN (test code = BUN) 12 mg/dL 9-23 Creatinine Level (test code = 0.67 mg/dL 0.55-1.02 Creatinine Level) BUN/Creat Ratio (test code = 17.9 ratio 10.0-20.0 BUN/Creat Ratio) Glucose Level (test code = 104 mg/dL 74-106 Glucose Level) Calcium Level (test code = 8.4 mg/dL 8.3-10.6 Calcium Level) Alk Phos (test code = Alk Phos) 70 U/L 46-116 Bilirubin Total (test code = 0.4 mg/dL 0.2-1.1 Bilirubin Total) Albumin Level (test code = 4.1 g/dL 3.2-4.8 Albumin Level) Protein Total (test code = 6.9 g/dL 5.7-8.2 Protein Total) ALT (test code = ALT) 17 U/L 10-49 AST (test code = AST) 24 U/L <=34 Globulin (test code = Globulin) 2.8 g/dL 2.3-3.5 A/G Ratio (test code = A/G 1.5 g/dL 0.8-2.0 Ratio) Hemolysis (test code = 0 g/dL 1-2 Hemolysis) Icterus (test code = Icterus) 0 g/dL 1-2 Lipemia (test code = Lipemia) 0 g/dL 1-2 Comprehensive Metabolic [id number] 17:21:28 Test Item Value Reference Range Interpretation Comments Sodium Level (test 140.0 mmol/L 136.0-145.0 code = Sodium Level) Potassium Level 4.00 mmol/L 3.50-5.10 (test code = Potassium Level) Chloride Level (test 104.0 mmol/L 98.0-107.0 code = Chloride Level) CO2 (test code = 31 mmol/L 20-31 CO2) Anion Gap (test code 5.0 mmol/L 5.0-15.0 = Anion Gap) BUN (test code = 12 mg/dL 9-23 BUN) Creatinine Level 0.67 mg/dL 0.55-1.02 (test code = Creatinine Level) BUN/Creat Ratio 17.9 ratio 10.0-20.0 (test code = BUN/Creat Ratio) Glucose Level (test 104 mg/dL 74-106 code = Glucose Level) Calcium Level (test 8.4 mg/dL 8.3-10.6 code = Calcium Level) Alk Phos (test code 70 U/L 46-116 = Alk Phos) Bilirubin Total 0.4 mg/dL 0.2-1.1 (test code = Bilirubin Total) Albumin Level (test 4.1 g/dL 3.2-4.8 code = Albumin Level) Protein Total (test 6.9 g/dL 5.7-8.2 code = Protein Total) ALT (test code = 17 U/L 10-49 ALT) AST (test code = 24 U/L <=34 AST) Globulin (test code 2.8 g/dL 2.3-3.5 = Globulin) A/G Ratio (test code 1.5 g/dL 0.8-2.0 = A/G Ratio) eGFR AA (test code = >60 >=60 eGFR (e stimated eGFR AA) mL/min/1.73 m2 Glomerular Filtration Rate ) is an estimated va lue, calculated from the patient's serum creatinine usin g the MDRD equation. It is NOT the patient 's actual GFR. The eGFR provides a more clinically usef ul measure of kidn ey disease than se rum creatinine alone.This calculation kyle es sex and race in to account, if the information is provided. If th e race is not provided, and t he patient is -Emily n, multiply by 1.2 12. If sex is not provided, and t he patient is fema le, multiply by 0.7 42. Results for pat ients <18 years of ag e have not been validated by [facility] MDRD study and should be interpreted wit h caution. eGFR R esult Interpretation: eGFR > or = 60 is in the Normal RangeeGF R < 60 may mean kid ariana diseaseeGFR < 1 5 may mean kidney failure Rang es recommended by the National Kidney Foundation, http://nkdep.ni h.gov eGFR Non-AA (test >60.00 >=60.00 eGFR (ryan mated code = eGFR Non-AA) mL/min/1.73 m2 Glomer ular Filtration Rate ) is an estimated va lue, calculated from the patient's serum creatinine usin g the MDRD equation. It is NOT the patient 's actual GFR. The eGFR provides a more clinically usef ul measure of kidn ey disease than se rum creatinine alone.This calculation kyle es sex and race in to account, if the information is provided. If e race is not provided, and t he patient is -Emily n, multiply by 1.2 12. If sex is not provided, and t he patient is fema le, multiply by 0.7 42. Results for pat ients <18 years of ag e have not been validated by [facility] MDRD study and should be interpreted wit h caution. eGFR R esult Interpretation: eGFR > or = 60 is in the Normal RangeeGF R < 60 may mean kid ariana diseaseeGFR < 1 5 may mean kidney failure Rang es recommended by the National Kidney Foundation, http://nkdep.ni h.gov Hemolysis (test code 0 g/dL 1-2 = Hemolysis) Icterus (test code = 0 g/dL 1-2 Icterus) Lipemia (test code = 0 g/dL 1-2 Lipemia) Comprehensive Metabolic [id number] 17:21:28 Test Item Value Reference Range Interpretation Comments Sodium Level (test 140.0 mmol/L 136.0-145.0 code = Sodium Level) Potassium Level 4.00 mmol/L 3.50-5.10 (test code = Potassium Level) Chloride Level (test 104.0 mmol/L 98.0-107.0 code = Chloride Level) CO2 (test code = 31 mmol/L 20-31 CO2) Anion Gap (test code 5.0 mmol/L 5.0-15.0 = Anion Gap) BUN (test code = 12 mg/dL 9-23 BUN) Creatinine Level 0.67 mg/dL 0.55-1.02 (test code = Creatinine Level) BUN/Creat Ratio 17.9 ratio 10.0-20.0 (test code = BUN/Creat Ratio) Glucose Level (test 104 mg/dL 74-106 code = Glucose Level) Calcium Level (test 8.4 mg/dL 8.3-10.6 code = Calcium Level) Alk Phos (test code 70 U/L 46-116 = Alk Phos) Bilirubin Total 0.4 mg/dL 0.2-1.1 (test code = Bilirubin Total) Albumin Level (test 4.1 g/dL 3.2-4.8 code = Albumin Level) Protein Total (test 6.9 g/dL 5.7-8.2 code = Protein Total) ALT (test code = 17 U/L 10-49 ALT) AST (test code = 24 U/L <=34 AST) Globulin (test code 2.8 g/dL 2.3-3.5 = Globulin) A/G Ratio (test code 1.5 g/dL 0.8-2.0 = A/G Ratio) eGFR AA (test code = >60 >=60 eGFR (e stimated eGFR AA) mL/min/1.73 m2 Glomerular Filtration Rate ) is an estimated va lue, calculated from the patient's serum creatinine usin g the MDRD equation. It is NOT the patient 's actual GFR. The eGFR provides a more clinically usef ul measure of kidn ey disease than se rum creatinine alone.This calculation kyle es sex and race in to account, if the information is provided. If th e race is not provided, and t he patient is -Emily n, multiply by 1.2 12. If sex is not provided, and t he patient is fema le, multiply by 0.7 42. Results for pat ients <18 years of ag e have not been validated by th e MDRD study and should be interpreted wit h caution. eGFR R esult Interpretation: eGFR > or = 60 is in the Normal RangeeGF R < 60 may mean kid ariana diseaseeGFR < 1 5 may mean kidney failure Rang es recommended by the National Kidney Foundation, http://nkdep.ni h.gov eGFR Non-AA (test >60.00 >=60.00 eGFR (ryan mated code = eGFR Non-AA) mL/min/1.73 m2 Glomer ular Filtration Rate ) is an estimated va lue, calculated from the patient's serum creatinine usin g the MDRD equation. It is NOT the patient 's actual GFR. The eGFR provides a more clinically usef ul measure of kidn ey disease than se rum creatinine alone.This calculation kyle es sex and race in to account, if the information is provided. If th e race is not provided, and t he patient is -Emily n, multiply by 1.2 12. If sex is not provided, and t he patient is fema le, multiply by 0.7 42. Results for pat ients <18 years of ag e have not been validated by th e MDRD study and should be interpreted wit h caution. eGFR R esult Interpretation: eGFR > or = 60 is in the Normal RangeeGF R < 60 may mean kid ariana diseaseeGFR < 1 5 may mean kidney failure Rang es recommended by the National Kidney Foundation, http://nkdep.ni h.gov Hemolysis (test code 0 g/dL 1-2 = Hemolysis) Icterus (test code = 0 g/dL 1-2 Icterus) Lipemia (test code = 0 g/dL 1-2 Lipemia) XR Chest 1 View [id number] 16:23:23Patient: CASI BERMAN Date/Time12/02/2019 16:19 CDTReason for ExamCoughReportEXAM: XR Chest 1 View FrontalHISTORY: Cough.Location code:[id number]: Chest radiograph 03/10/2019FINDINGS:Single AP view of the chest is provided.Heart size and vascularity are within normal limits.The lungs are clear of focal consolidation. The previously seen faint opacities in the lower lobes have resolved. No effusion, pneumothorax, or acute osseous abnormality.Mild degenerative bony changes and a 5 mm right humeral head bone island are unchanged since 03/10/2019.IMPRESSION:1. No radiographic evidence of acute cardiopulmonary process. Final Dictated by: MD Kj, Destiny KingiDictated DT/TM: 12/02/2019 4:21 pmSigned by: MD Kj, Destiny KingiSigned (Elec tronic Signature): 12/02/2019 4:23 pmComplete Blood Count with Differential 2019-07-31 08:31:08 Test Item Value Reference Range Interpretation Comments WBC (test code = WBC) 7.5 x10 4.4-10.5 RBC (test code = RBC) 4.43 x10 3.75-5.20 Hgb (test code = Hgb) 12.7 g/dL 12.2-14.8 Hct (test code = Hct) 41.2 % 36.5-44.4 MCV (test code = MCV) 93.00 fL 80.00-100.00 MCHC (test code = 30.80 g/dL 32.00-37.50 L MCHC) RDW CV (test code = 15.7 % 11.5-14.5 H RDW CV) MCH (test code = MCH) 28.7 pg 27.0-32.5 Platelets (test code = 26.0 x10 140.0-440.0 Criti ana results Platelets) called to zechariah morris RN_ at 07/31/2019 08:28: 08 CDT by tb. Read ronel ck and verified? yes MPV (test code = MPV) 8.6 fL N Slide Review (test Auto Auto Result cr eated by code = Slide Review) GL_SJM_ SLIDE_REV_AUTO GL_SJM_XN_RFLX GL_SJM_XN_RFLX GL_SJM_XN_RFLX nRBC (test code = 0 N nRBC) NRBC Abs (test code = 0.00 x10 N NRBC Abs) Pos Count XN (test A N code = Pos Count XN) IPF (test code = IPF) 19 % N Automated [id number] 08:31:08 Test Item Value Reference Range Interpretation Comments Neutro Auto (test code = Neutro 69.4 % 36.0-70.0 Auto) Lymph Auto (test code = Lymph Auto) 19.0 % 12.0-44.0 Hendricks Auto (test code = Hendricks Auto) 8.7 % 0.0-11.0 Eos, Auto (test code = Eos, Auto) 2.5 % 0.0-7.0 Basophil Auto (test code = Basophil 0.3 % 0.0-2.0 Auto) Neutro Absolute (test code = Neutro 5.2 x10 1.6-7.4 Absolute) Lymph Absolute (test code = Lymph 1.42 x10 .50-4.60 Absolute) Hendricks Absolute (test code = Hendricks .65 x10 .00-1.20 Absolute) Eos Absolute (test code = Eos 0.19 x10 0.00-0.74 Absolute) Baso Absolute (test code = Baso 0.02 x10 0.00-0.21 Absolute) IG [id number] 08:31:08 Test Item Value Reference Range Interpretation Comments IG (test code = IG) 0.1 % 0.0-5.0 IG Abs (test code = IG Abs) 0 x10 N Complete Blood Count with [id number] 08:31:08 Test Item Value Reference Range Interpretation Comments WBC (test code = WBC) 7.5 x10 4.4-10.5 RBC (test code = RBC) 4.43 x10 3.75-5.20 Hgb (test code = Hgb) 12.7 g/dL 12.2-14.8 MCV (test code = MCV) 93.00 fL 80.00-100.00 Hct (test code = Hct) 41.2 % 36.5-44.4 MCHC (test code = 30.80 g/dL 32.00-37.50 L MCHC) RDW CV (test code = 15.7 % 11.5-14.5 H RDW CV) MCH (test code = MCH) 28.7 pg 27.0-32.5 Platelets (test code = 26.0 x10 140.0-440.0 Criti ana results Platelets) called to zechariah morris RN_ morales 07/31/2019 08:28: 08 CDT by tb. Read ronel ck and verified? yes MPV (test code = MPV) 8.6 fL N Slide Review (test Auto Auto Result cr eated by code = Slide Review) GL_SJM_ SLIDE_REV_AUTO GL_SJM_XN_RFLX GL_SJM_XN_RFLX GL_SJM_XN_RFLX nRBC (test code = 0 N nRBC) NRBC Abs (test code = 0.00 x10 N NRBC Abs) Pos Count XN (test A N code = Pos Count XN) Pos Morph XN (test A N code = Pos Morph XN) IPF (test code = IPF) 19 % N Prothrombin Time and [id number] 08:25:57 Test Item Value Reference Range Interpretation Comments Prothrombin Time (test code = 10.8 seconds 9.8-13.4 Prothrombin Time) INR (test code = INR) 1.0 ratio 0.6-1.2 Partial Thromboplastin [id number] 08:25:57 Test Item Value Reference Range Interpretation Comments Partial Thromboplastin Time 31.70 seconds 24.39-37.25 (test code = Partial Thromboplastin Time) Alcohol [id number] 06:05:43 Test Item Value Reference Range Interpretation Comments Ethanol Level (test <0.00 g/dL 0.00-0.01 Intoxica karolina 0.080 g/dL code = Ethanol or more Level) Ethanol Inst (test <0 N code = Ethanol Inst) Comprehensive Metabolic [id number] 06:05:42 Test Item Value Reference Range Interpretation Comments Sodium Level (test code = Sodium 138.0 mmol/L 135.0-145.0 Level) Potassium Level (test code = 3.3 mmol/L 3.5-5.1 L Potassium Level) Chloride Level (test code = 99 mmol/L 98-105 Chloride Level) CO2 (test code = CO2) 29 mmol/L 22-29 Anion Gap (test code = Anion 10 mmol/L 7-16 Gap) BUN (test code = BUN) 17.80 mg/dL 6.00-20.00 Creatinine Level (test code = 0.60 mg/dL 0.50-0.90 Creatinine Level) BUN/Creat Ratio (test code = 30 N BUN/Creat Ratio) Glucose Level (test code = 131 mg/dL 70-115 H Glucose Level) Calcium Level (test code = 9.2 mg/dL 8.3-10.5 Calcium Level) Alk Phos (test code = Alk Phos) 69 U/L 35-104 Bilirubin Total (test code = 0.2 mg/dL 0.1-0.9 Bilirubin Total) Albumin Level (test code = 3.7 g/dL 3.5-5.2 Albumin Level) Protein Total (test code = 6.9 g/dL 6.4-8.3 Protein Total) ALT (test code = ALT) 13 U/L 1-33 AST (test code = AST) 18 U/L 1-32 Globulin (test code = Globulin) 3.2 g/dL 2.9-3.1 H A/G Ratio (test code = A/G 1.2 ratio N Ratio) Comprehensive Metabolic [id number] 06:05:42 Test Item Value Reference Range Interpretation Comments Sodium Level (test 138.0 mmol/L 135.0-145.0 code = Sodium Level) Potassium Level 3.3 mmol/L 3.5-5.1 L (test code = Potassium Level) Chloride Level (test 99 mmol/L 98-105 code = Chloride Level) CO2 (test code = 29 mmol/L 22-29 CO2) Anion Gap (test code 10 mmol/L 7-16 = Anion Gap) BUN (test code = 17.80 mg/dL 6.00-20.00 BUN) Creatinine Level 0.60 mg/dL 0.50-0.90 (test code = Creatinine Level) BUN/Creat Ratio 30 N (test code = BUN/Creat Ratio) Glucose Level (test 131 mg/dL 70-115 H code = Glucose Level) Calcium Level (test 9.2 mg/dL 8.3-10.5 code = Calcium Level) Alk Phos (test code 69 U/L 35-104 = Alk Phos) Bilirubin Total 0.2 mg/dL 0.1-0.9 (test code = Bilirubin Total) Albumin Level (test 3.7 g/dL 3.5-5.2 code = Albumin Level) Protein Total (test 6.9 g/dL 6.4-8.3 code = Protein Total) ALT (test code = 13 U/L 1-33 ALT) AST (test code = 18 U/L 1-32 AST) Globulin (test code 3.2 g/dL 2.9-3.1 H = Globulin) A/G Ratio (test code 1.2 ratio N = A/G Ratio) eGFR AA (test code = >60 N eGFR (e stimated eGFR AA) mL/min/1.73 m2 Glomerular Filtration Rate ) is an estimated va lue, calculated from the patient's serum creatinine usin g the MDRD equation. It is NOT the patient 's actual GFR. The eGFR provides a more clinically usef ul measure of kidn ey disease than se rum creatinine alone.This calculation kyle es sex and race in to account, if the information is provided. If th e race is not provided, and t he patient is -Emily n, multiply by 1.2 12. If sex is not provided, and t he patient is fema le, multiply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 Comments RBC Morph (test code = RBC As Indicated Normal A Morph) Platelet Morphology (test Large platelets Normal A code = Platelet Morphology) Anisocyte (test code = 1+ None Anisocyte) Hypochromia (test code = None Seen None Seen Hypochromia) Microcyte (test code = None Seen None Seen Microcyte) Macrocyte (test code = None Seen None Seen Macrocyte) Poik (test code = Poik) None Seen None Seen Polychrom (test code = None Seen None Seen Polychrom) Acanthocyte (test code = None Seen None Seen Acanthocyte) Baso Stippling RBC (test code None Seen None Seen = Baso Stippling RBC) Plt Estimation (test code = Decreased Normal A Plt Estimation) Complete Blood Count with [id number] 12:17:17 Test Item Value Reference Range Interpretation Comments WBC (test code = WBC) 9.7 x10 4.4-10.5 RBC (test code = RBC) 4.17 x10 3.75-5.20 Hgb (test code = Hgb) 12.2 g/dL 12.2-14.8 Hct (test code = Hct) 37.5 % 36.5-44.4 MCV (test code = MCV) 89.90 fL 80.00-100.00 MCHC (test code = 32.50 g/dL 32.00-37.50 MCHC) RDW CV (test code = 15.8 % 11.5-14.5 H RDW CV) MCH (test code = MCH) 29.3 pg 27.0-32.5 Platelets (test code = 47.0 x10 140.0-440.0 Criti ana results Platelets) called to hazel demarcorn at 03/10/2019 12 :16:54 DIRECTOR OF FINANCIAL AID by fs. Drea nolasco and verified? y esno info was given MPV (test code = MPV) 11.8 fL N Slide Review (test Smear Auto A Result cr eated by code = Slide Review) GL_SJM_ SLIDE_REV_AUTO GL_SJM_XN_RFLX GL_SJM_XN_RFLX GL_SJM_XN_RFLX GL_SJM_XN_RFLX GL_SJM_XN_RFLX nRBC (test code = 0 N nRBC) NRBC Abs (test code = 0.00 x10 N NRBC Abs) Pos Count XN (test A N code = Pos Count XN) IPF (test code = IPF) 0 % N [id number] 12:17:17 Test Item Value Reference Range Interpretation Comments RBC Morph (test code = As Indicated Normal A RBC Morph) Platelet Morphology Large platelets Normal A (test code = Platelet Morphology) Anisocyte (test code = 1+ None Anisocyte) Hypochromia (test code = None Seen None Seen Hypochromia) Microcyte (test code = None Seen None Seen Microcyte) Macrocyte (test code = None Seen None Seen Macrocyte) Poik (test code = Poik) None Seen None Seen Polychrom (test code = None Seen None Seen Polychrom) Acanthocyte (test code = None Seen None Seen Acanthocyte) Baso Stippling RBC (test None Seen None Seen code = Baso Stippling RBC) Differential Comment several platelet N (test code = clumps present on Differential Comment) peripheral bloold smear. this is a redraw because first sample showed several platelet clumpinps on smear.fs Plt Estimation (test Decreased Normal A code = Plt Estimation) [id number] 12:17:17 Test Item Value Reference Range Interpretation Comments RBC Morph (test code As Indicated Normal A = RBC Morph) Platelet Morphology Platelet Clumping Normal A meri quate (test code = platelets Platelet Morphology) present on smear.several clumpings observed. dick notified tello sweeney rn at 0 Anisocyte (test code 1+ None = Anisocyte) Hypochromia (test None Seen None Seen code = Hypochromia) Microcyte (test code None Seen None Seen = Microcyte) Macrocyte (test code None Seen None Seen = Macrocyte) Poik (test code = None Seen None Seen Poik) Polychrom (test code None Seen None Seen = Polychrom) Acanthocyte (test None Seen None Seen code = Acanthocyte) Baso Stippling RBC None Seen None Seen (test code = Baso Stippling RBC) Differential Comment several platelet N (test code = clumps present on Differential peripheral bloold Comment) smear. this is a redraw because first sample showed several platelet clumpinps on smear.fs Plt Estimation (test Normal Normal adequat e code = Plt platelets Estimation) present on smear.several clumpings observed. dick notified tello sweeney rn at 0 Complete Blood Count with [id number] 12:17:17 Test Item Value Reference Range Interpretation Comments WBC (test code = 9.7 x10 4.4-10.5 WBC) RBC (test code = 4.17 x10 3.75-5.20 RBC) Hgb (test code = 12.2 g/dL 12.2-14.8 Hgb) Hct (test code = 37.5 % 36.5-44.4 Hct) MCV (test code = 89.90 fL 80.00-100.00 MCV) MCHC (test code = 32.50 g/dL 32.00-37.50 MCHC) MCH (test code = 29.3 pg 27.0-32.5 MCH) RDW CV (test code = 15.8 % 11.5-14.5 H RDW CV) Platelets (test see note x10 140.0-440.0 N Critical res ults code = Platelets) called to stevo espitia at 03/10/2019 12 :16:54 DIRECTOR OF FINANCIAL AID by vitor. Drea wells back and verified? y esno info was givenm ashlie notified stevo espino on 03/10/2019 CSTon count not reportable due several clumpin gs. adequate platel ets observed on per ipheral blood smearadeq uate platelets prese nt on smear.several clumpings obser juan m. leroyn notifi ed tello sweeney rn at 02/25 MPV (test code = 11.8 fL N MPV) Slide Review (test Smear Auto A Result cr eated by code = Slide GL_SJM_SLIDE_RE V_AUTO Review) GL_SJM_XN_RFLX GL_SJM_XN_RFLX GL_SJM_XN_RFLX GL_SJM_XN_RFLX GL_SJM_XN_RFLX nRBC (test code = 0 N nRBC) NRBC Abs (test code 0.00 x10 N = NRBC Abs) Pos Count XN (test A N code = Pos Count XN) IPF (test code = 0 % N IPF) Automated [id number] 12:10:05 Test Item Value Reference Range Interpretation Comments Neutro Auto (test code = Neutro 73.7 % 36.0-70.0 H Auto) Lymph Auto (test code = Lymph Auto) 17.6 % 12.0-44.0 Hendricks Auto (test code = Hendricks Auto) 7.6 % 0.0-11.0 Eos, Auto (test code = Eos, Auto) 0.5 % 0.0-7.0 Basophil Auto (test code = Basophil 0.2 % 0.0-2.0 Auto) Neutro Absolute (test code = Neutro 7.1 x10 1.6-7.4 Absolute) Lymph Absolute (test code = Lymph 1.70 x10 .50-4.60 Absolute) Hendricks Absolute (test code = Hendricks .73 x10 .00-1.20 Absolute) Eos Absolute (test code = Eos 0.05 x10 0.00-0.74 Absolute) Baso Absolute (test code = Baso 0.02 x10 0.00-0.21 Absolute) IG [id number] 12:10:05 Test Item Value Reference Range Interpretation Comments IG (test code = IG) 0.4 % 0.0-5.0 IG Abs (test code = IG Abs) 0 x10 N Troponin [id number] 12:03:18 Test Item Value Reference Range Interpretation Comments Troponin-T (test <6.000 ng/L 0.000-14.000 The CV of t he assay at code = Troponin-T) 99th perc entile for both male and female patient population is < 10%. A rise and fall i n POLA with at least o ne value above the 99th percentile with clinical evidence of nellie cardial ischemia would support a diagnosis of AM I. A delta of at demetrice st 20% is recommended to assess acute changes i n results above the 99th percentile in s erial measurements. S table POLA levels (<20%) d elta above the 99th percentile URL would support a diagn osis of chronic myocard ial injury. Potassium [id number] 10:57:44 Test Item Value Reference Range Interpretation Comments Potassium Level (test code = 3.9 mmol/L 3.5-5.1 Potassium Level) Comprehensive Metabolic [id number] 10:17:34 Test Item Value Reference Range Interpretation Comments Sodium Level (test 139.0 mmol/L 135.0-145.0 code = Sodium Level) Potassium Level See comments 3.5-5.1 N Specimen (test code = mmol/L hemolyzed. K+ Potassium Level) results may be spuriously elevated. Recommend speci men recollection.K 5.03accepted by Yeimi Chavira Chloride Level 101 mmol/L 98-105 (test code = Chloride Level) CO2 (test code = 29 mmol/L 22-29 CO2) Anion Gap (test 9 mmol/L 7-16 code = Anion Gap) BUN (test code = 6.20 mg/dL 6.00-20.00 BUN) Creatinine Level 0.50 mg/dL 0.50-0.90 (test code = Creatinine Level) BUN/Creat Ratio 12 N (test code = BUN/Creat Ratio) Glucose Level (test 95 mg/dL 70-115 code = Glucose Level) Calcium Level (test 8.9 mg/dL 8.3-10.5 code = Calcium Level) Alk Phos (test code 85 U/L 35-104 = Alk Phos) Bilirubin Total 0.3 mg/dL 0.1-0.9 (test code = Bilirubin Total) Albumin Level (test 3.8 g/dL 3.5-5.2 code = Albumin Level) Protein Total (test 7.9 g/dL 6.4-8.3 code = Protein Total) ALT (test code = 10 U/L 1-33 ALT) AST (test code = See comments U/L 1-32 N Specime n AST) hemolyzed.AST 2 7 Globulin (test code 4.1 g/dL 2.9-3.1 H = Globulin) A/G Ratio (test 0.9 ratio N code = A/G Ratio) Pro B Natriuretic [id number] 10:17:34 Test Item Value Reference Range Interpretation Comments NT-proBNP (test code = NT-proBNP) 367 pg/mL 0-124 H Comprehensive Metabolic [id number] 10:17:34 Test Item Value Reference Range Interpretation Comments Sodium Level (test 139.0 mmol/L 135.0-145.0 code = Sodium Level) Potassium Level See comments 3.5-5.1 N Specimen hem olyzed. (test code = mmol/L K+ results may be Potassium Level) spuriously elevated. Recom mend specimen recollection.K 5.03accepted by Yeimi Chavira Chloride Level 101 mmol/L 98-105 (test code = Chloride Level) CO2 (test code = 29 mmol/L 22-29 CO2) Anion Gap (test 9 mmol/L 7-16 code = Anion Gap) BUN (test code = 6.20 mg/dL 6.00-20.00 BUN) Creatinine Level 0.50 mg/dL 0.50-0.90 (test code = Creatinine Level) BUN/Creat Ratio 12 N (test code = BUN/Creat Ratio) Glucose Level (test 95 mg/dL 70-115 code = Glucose Level) Calcium Level (test 8.9 mg/dL 8.3-10.5 code = Calcium Level) Alk Phos (test code 85 U/L 35-104 = Alk Phos) Bilirubin Total 0.3 mg/dL 0.1-0.9 (test code = Bilirubin Total) Albumin Level (test 3.8 g/dL 3.5-5.2 code = Albumin Level) Protein Total (test 7.9 g/dL 6.4-8.3 code = Protein Total) ALT (test code = 10 U/L 1-33 ALT) AST (test code = See comments U/L 1-32 N Specime n AST) hemolyzed.AST 2 7 Globulin (test code 4.1 g/dL 2.9-3.1 H = Globulin) A/G Ratio (test 0.9 ratio N code = A/G Ratio) eGFR AA (test code >60 mL/min/1.73 N eGFR ( estimated = eGFR AA) m2 Glomerular Filtration Rate ) is an estimated va lue, calculated from the patient's serum creatinine usin g the MDRD equati on. It is NOT the patient's actua l GFR. The eGFR provides a more clinically usef ul measure of kidn ey disease than se rum creatinine alone.This calculation kyle es sex and race in to account, if the information is provided. If th e race is not provided, and t he patient is -Emily n, multiply by 1.2 12. If sex is not provided, and t he patient is fema le, multiply by 0.7 42. Results for patients <18 ye ars of age have not been validated by the MDRD study and should be interpreted wit h caution. eGFR Result Interpretation: eGFR > or = 60 is in the Normal RangeeGF R < 60 may mean kid ariana diseaseeGFR < 1 5 may mean kidney failure Rang es recommended by the National Kidney Foundation, http://nkdep.ni h.go v Troponin [id number] 10:17:34 Test Item Value Reference Range Interpretation Comments Troponin-T (test <6.000 ng/L 0.000-14.000 The CV of t he assay at code = Troponin-T) 99th perc entile for both male and female patient population is < 10%. A rise and fall i n POLA with at least o ne value above the 99th percentile with clinical evidence of nellie cardial ischemia would support a diagnosis of AM I. A delta of at demetrice st 20% is recommended to assess acute changes i n results above the 99th percentile in s erial measurements. S table POLA levels (<20%) d elta above the 99th percentile URL would support a diagn osis of chronic myocard ial injury. Comprehensive Metabolic [id number] 10:17:34 Test Item Value Reference Range Interpretation Comments Sodium Level (test 139.0 mmol/L 135.0-145.0 code = Sodium Level) Potassium Level See comments 3.5-5.1 N Specimen hem olyzed. (test code = mmol/L K+ results may be Potassium Level) spuriously elevated. Recom mend specimen recollection.K 5.03accepted by Yeimi Chavira Chloride Level 101 mmol/L 98-105 (test code = Chloride Level) CO2 (test code = 29 mmol/L 22-29 CO2) Anion Gap (test 9 mmol/L 7-16 code = Anion Gap) BUN (test code = 6.20 mg/dL 6.00-20.00 BUN) Creatinine Level 0.50 mg/dL 0.50-0.90 (test code = Creatinine Level) BUN/Creat Ratio 12 N (test code = BUN/Creat Ratio) Glucose Level (test 95 mg/dL 70-115 code = Glucose Level) Calcium Level (test 8.9 mg/dL 8.3-10.5 code = Calcium Level) Alk Phos (test code 85 U/L 35-104 = Alk Phos) Bilirubin Total 0.3 mg/dL 0.1-0.9 (test code = Bilirubin Total) Albumin Level (test 3.8 g/dL 3.5-5.2 code = Albumin Level) Protein Total (test 7.9 g/dL 6.4-8.3 code = Protein Total) ALT (test code = 10 U/L 1-33 ALT) AST (test code = See comments U/L 1-32 N Specime n AST) hemolyzed.AST 2 7 Globulin (test code 4.1 g/dL 2.9-3.1 H = Globulin) A/G Ratio (test 0.9 ratio N code = A/G Ratio) eGFR AA (test code >60 mL/min/1.73 N eGFR ( estimated = eGFR AA) m2 Glomerular Filtration Rate ) is an estimated va lue, calculated from the patient's serum creatinine usin g the MDRD equati on. It is NOT the patient's actua l GFR. The eGFR provides a more clinically usef ul measure of kidn ey disease than se rum creatinine alone.This calculation kyle es sex and race in to account, if the information is provided. If th e race is not provided, and t he patient is -Emily n, multiply by 1.2 12. If sex is not provided, and t he patient is fema le, multiply by 0.7 42. Results for patients <18 ye ars of age have not been validated by the MDRD study and should be interpreted wit h caution. eGFR Result Interpretation: eGFR > or = 60 is in the Normal RangeeGF R < 60 may mean kid ariana diseaseeGFR < 1 5 may mean kidney failure Rang es recommended by the National Kidney Foundation, http://nkdep.ni h.go v eGFR Non-AA (test >60.00 N eGFR (ryan mated code = eGFR Non-AA) mL/min/1.73 m2 Glomer ular Filtration Rate ) is an estimated va lue, calculated from the patient's serum creatinine usin g the MDRD equati on. It is NOT the patient's actua l GFR. The eGFR provides a more clinically usef ul measure of kidn ey disease than se rum creatinine alone.This calculation kyle es sex and race in to account, if the information is provided. If th e race is not provided, and t he patient is -Emily n, multiply by 1.2 12. If sex is not provided, and t he patient is fema le, multiply by 0.7 42. Results for patients <18 ye ars of age have not been validated by the MDRD study and should be interpreted wit h caution. eGFR Result Interpretation: eGFR > or = 60 is in the Normal RangeeGF R < 60 may mean kid ariana diseaseeGFR < 1 5 may mean kidney failure Rang es recommended by the National Kidney Foundation, http://nkdep.ni h.go v Prothrombin Time and [id number] 10:11:21 Test Item Value Reference Range Interpretation Comments Prothrombin Time (test code = 11.0 seconds 9.8-13.4 Prothrombin Time) INR (test code = INR) 1.0 ratio 0.6-1.2 Partial Thromboplastin [id number] 10:11:21 Test Item Value Reference Range Interpretation Comments Partial Thromboplastin Time 30.80 seconds 24.39-37.25 (test code = Partial Thromboplastin Time) XR Chest 1 View [id number] 08:43:14Patient: CASI BERMAN Date/Time03/10/2019 08:32 CSTReason for ExamCoughReportDictation location R16:Portable chest one view.HISTORY: CoughCOMMENT: No comparison. The heart and mediastinum are normal. There are perihilar and bibasilar interstitial infiltrates. Small nodular opacities are also present, the one in the right lower lobe may be partly due to nipple shadow. No pneumothorax or effusion seen. Visualized soft tissues and skeletal structures are unremarkable.IMPRESSION: Findings suggest bronchitis with possible early lower lobe pneumonias. Follow-up recommended.. Final Dictated by: MD Kaleb, Keren CDictated DT/TM: 03/10/2019 8:40 amSigned by: MD Manuel Phebe CSigned (Electronic Signature): 03/10/2019 8:43 amTROPONIN I [id number] 13:55:00 Test Item Value Reference Range Interpretation Comments TROPONIN I RAPID 0.00 ng/mL 0.00-0.08 N - The use o f serial (test code = sampling and te sting TROPIRAP) protocol is a recommended pra ctice- An elevated tro pnin level alone is often not sufficient for diagnosis of my ocardial infarction. CHEMISTRY 8 [id number] 13:42:00 Test Item Value Reference Range Interpretation Comments SODIUM POC (test code = NAP) MMOL/L 135-146 N POTASSIUM POC (test code = KP) MMOL/L 3.5-4.9 L CHLORIDE POC (test code = CLP) MMOL/L 98-109 CO2 POC (test code = CO2P) mmol/L 24-29 IONIZED CALCIUM POC (test code = mmol/L 1.12-1.32 N CAIP) GLUCOSE POC (test code = GLUP) mg/dL 70-105 N BUN POC (test code = BUNP) MG/DL 8-26 L CREATININE POC (test code = CREATP) mg/dL 0.6-1.3 L GLOMERULAR FILTRATION RATE POC (test 172 58-135 H code = GFRP) CHEMISTRY 8 [id number] 13:42:00 Test Item Value Reference Range Interpretation Comments SODIUM POC (test code = NAP) 146 MMOL/L 135-146 N POTASSIUM POC (test code = KP) 3.1 MMOL/L 3.5-4.9 L CHLORIDE POC (test code = CLP) 110 MMOL/L 98-109 H CO2 POC (test code = CO2P) 22 mmol/L 24-29 L IONIZED CALCIUM POC (test code = 1.17 mmol/L 1.12-1.32 N CAIP) GLUCOSE POC (test code = GLUP) 81 mg/dL 70-105 N BUN POC (test code = BUNP) 4 MG/DL 8-26 L CREATININE POC (test code = 0.4 mg/dL 0.6-1.3 L CREATP) GLOMERULAR FILTRATION RATE POC 172 58-135 H (test code = GFRP) URINALYSIS [id number] 13:15:00 Test Item Value Reference Range Interpretation Comments UA COLOR (test code = COLU) YELLOW DISCRIPT YELLOW UA APPEARANCE (test code = CLEAR DISCRIPT CLEAR APPU) UA GLUCOSE DIPSTICK (test NEGATIVE mg/dL NEGATIVE code = DGLUU) UA BILIRUBIN DIPSTICK (test NEGATIVE NEGATIVE code = BILU) UA KETONE DIPSTICK (test code NEGATIVE mg/dL NEGATIVE = KETU) UA SPECIFIC GRAVITY (test <=1.005 1.005-1.030 A code = SGU) UA BLOOD DIPSTICK (test code NEGATIVE NEGATIVE = EDER) UA PH DIPSTICK (test code = 6.0 5.0-9.0 JUAN ANTONIO) UA PROTEIN DIPSTICK (test NEGATIVE mg/dL NEGATIVE code = PROU) UA UROBILINOGEN DIPSTICK 0.2 mg/dL 0.2-1.0 (test code = URO) UA NITRITE DIPSTICK (test NEGATIVE NEGATIVE code = BRIAN) UA LEUKOCYTE ESTERASE TRACE NEGATIVE A DIPSTICK (test code = LEUU) UA [id number] 13:15:00 Test Item Value Reference Range Interpretation Comments UA WBC (test code = WBCU) 0-2 #WBC/HPF 0-2 UA RBC (test code = RBCU) NONE SEEN #RBC/HPF 0-2 UA BACTERIA (test code = NONE SEEN /HPF NONE-TRACE BACU) UA SQUAMOUS CELLS (test OCCASIONAL /LPF NONE-TRACE code = SQU) URINALYSIS [id number] 13:12:00 Test Item Value Reference Range Interpretation Comments UA COLOR (test code = COLU) YELLOW DISCRIPT YELLOW UA APPEARANCE (test code = CLEAR DISCRIPT CLEAR APPU) UA GLUCOSE DIPSTICK (test NEGATIVE mg/dL NEGATIVE code = DGLUU) UA BILIRUBIN DIPSTICK (test NEGATIVE NEGATIVE code = BILU) UA KETONE DIPSTICK (test code NEGATIVE mg/dL NEGATIVE = KETU) UA SPECIFIC GRAVITY (test <=1.005 1.005-1.030 A code = SGU) UA BLOOD DIPSTICK (test code NEGATIVE NEGATIVE = EDER) UA PH DIPSTICK (test code = 6.0 5.0-9.0 JUAN ANTONIO) UA PROTEIN DIPSTICK (test NEGATIVE mg/dL NEGATIVE code = PROU) UA UROBILINOGEN DIPSTICK 0.2 mg/dL 0.2-1.0 (test code = URO) UA NITRITE DIPSTICK (test NEGATIVE NEGATIVE code = BRIAN) UA LEUKOCYTE ESTERASE TRACE NEGATIVE A DIPSTICK (test code = LEUU) UA [id number] 13:12:00 Test Item Value Reference Range Interpretation Comments UA WBC (test code = WBCU) #WBC/HPF 0-2 UA RBC (test code = RBCU) #RBC/HPF 0-2 UA BACTERIA (test code = BACU) /HPF NONE-TRACE UA SQUAMOUS CELLS (test code = SQU) /LPF NONE-TRACE URINALYSIS [id number] 13:11:00 Test Item Value Reference Range Interpretation Comments UA COLOR (test code = COLU) YELLOW DISCRIPT YELLOW UA APPEARANCE (test code = CLEAR DISCRIPT CLEAR APPU) UA GLUCOSE DIPSTICK (test NEGATIVE mg/dL NEGATIVE code = DGLUU) UA BILIRUBIN DIPSTICK (test NEGATIVE NEGATIVE code = BILU) UA KETONE DIPSTICK (test code NEGATIVE mg/dL NEGATIVE = KETU) UA SPECIFIC GRAVITY (test <=1.005 1.005-1.030 A code = SGU) UA BLOOD DIPSTICK (test code NEGATIVE NEGATIVE = EDER) UA PH DIPSTICK (test code = 6.0 5.0-9.0 JUAN ANTONIO) UA PROTEIN DIPSTICK (test NEGATIVE mg/dL NEGATIVE code = PROU) UA UROBILINOGEN DIPSTICK 0.2 mg/dL 0.2-1.0 (test code = URO) UA NITRITE DIPSTICK (test NEGATIVE NEGATIVE code = BRIAN) UA LEUKOCYTE ESTERASE TRACE NEGATIVE A DIPSTICK (test code = LEUU) UA [id number] 13:11:00 Test Item Value Reference Range Interpretation Comments UA WBC (test code = WBCU) #WBC/HPF 0-2 UA RBC (test code = RBCU) #RBC/HPF 0-2 UA BACTERIA (test code = BACU) /HPF NONE-TRACE UA SQUAMOUS CELLS (test code = SQU) /LPF NONE-TRACE - US ABDOMEN [id number] 12:36:00Patient Name: CASI ROSENTHAL Unit No: [id number] EXAMS: CPT CODE: [id number] US ABDOMEN LTD 38452 W1 EXAM: Ultrasound Abdomen, Limited (Right upper quadrant) INDICATION: RUQ abdominal pain TECHNIQUE: Real-time grayscale, color-flow and spectral Doppler images were obtained of the right upper quadrant using a curved transducer. COMPARISON: None FINDINGS: The gallbladder is normal in appearance without cholelithiasis. No significant gallbladder wall thickening or pericholecystic fluid. The common bile duct measures 4 mm. The liver is normal in size and has a normal echogenicity and contour. Normal hepatopedal flow in the main portal vein. The visualized portions of the pancreas are normal in appearance. The right kid ariana is normal. A small amount of ascites is noted adjacent to the liver. IMPRESSION: Trace ascites around the liver. Otherwise, no significant right upper quadrant abnormalities. at 1236 Reported and signed by: LEV LOPEZ M.D. CC: No Primary Care Physician; Judie Patel MD Technologist: JAVI GRIFFIN RDMS,RVT,(AB),(OB) Probe: Trscr Dt/Tm: 10/21/2018 (1236) by:[email or web address] Printed Rogerio e/Time: 10/21/2018 (1239) Name: CASI ROSENTHAL [facility] Phys: Judie Martins MD [address] : 1970 Age: 48 Sex: [place] [address] Loc: P.ERS Exam Date: 10/21/2018 Status: REG ER PH: FAX: PAGE 1 Signed ReportCBC W/AUTO DIFF 2018-10-21 12:31:00 Test Item Value Reference Range Interpretation Comments WHITE BLOOD CELL (test 9.0 x10 3/uL 4.8-10.8 N code = WBC) RED BLOOD CELL (test 4.41 x10 6/uL 4.20-5.40 N code = RBC) HEMOGLOBIN (test code = 13.0 g/dL 14.5-20 L HGB) HEMATOCRIT (test code = 41.0 % 37.0-47.0 N HCT) MEAN CELL VOLUME (test 93.0 fL 81.0-99.0 N code = MCV) MEAN CELL HGB (test 29.5 pg 27-31 N code = MCH) MEAN CELL HGB 31.7 G/DL 33-36.5 L CONCENTRATION (test code = MCHC) RED CELL DISTRIBUTION 18.7 % 12.9-16.9 H WIDTH (test code = RDW) PLATELET COUNT (test 170 150-440 N PLATELE T CLUMPING code = PLT) PRESENT IN EDTA SPECIMEN.PLATEL ET COUNT OBTAINED FROM A CITRATED (BLUE TOP) SPECIMEN.RARE SMALL PLATELET CLUMP PRESENT. MEAN PLATELET VOLUME 11.2 fL 8.9-12.4 N (test code = MPV) NEUTROPHIL % (test code 54.6 % 42.2-75.2 N = NT%) LYMPHOCYTE % (test code 35.9 % 20.5-51.1 N = LY%) MONOCYTE % (test code = 8.1 % 1.7-9.3 N MO%) EOSINOPHIL % (test code 1.0 % 0.0-7.0 N = EO%) BASOPHIL % (test code = 0.2 % 0-2.5 N BA%) NEUTROPHIL # (test code 4.89 x10 3/uL 1.80-7.70 N = NT#) LYMPHOCYTE # (test code 3.22 x10 3/uL 1.00-4.80 N = LY#) MONOCYTE # (test code = 0.73 x10 3/uL 0.00-0.80 N MO#) EOSINOPHIL # (test code 0.09 x10 3/uL 0.00-0.45 N = EO#) BASOPHIL # (test code = 0.02 x10 3/uL 0.0-0.20 N BA#) LIVER FUNCTION [id number] 11:40:00 Test Item Value Reference Range Interpretation Comments TOTAL PROTEIN (test code = PROT) 6.1 g/dL 6.3-8.3 L ALBUMIN (test code = ALB) 3.3 G/DL 3.5-5.0 L BILIRUBIN TOTAL (test code = BILT) 0.3 mg/dL 0.2-1.0 N BILIRUBIN DIRECT (test code = <0.2 mg/dL 0.0-0.2 N BILD) SGOT/AST (test code = AST) 14 IU/L 10-34 N SGPT/ALT (test code = ALT) 10 U/L 10-36 N ALKALINE PHOSPHATASE (test code = 59 U/L 32-104 N ALKP) [id number] 11:40:00 Test Item Value Reference Range Interpretation Comments LIPASE (test code = LIP) 49 U/L 0-190 N CBC W/AUTO [id number] 11:18:00 Test Item Value Reference Range Interpretation Comments WHITE BLOOD CELL (test code = 9.0 x10 3/uL 4.8-10.8 N WBC) RED BLOOD CELL (test code = 4.41 x10 6/uL 4.20-5.40 N RBC) HEMOGLOBIN (test code = HGB) 13.0 g/dL 14.5-20 L HEMATOCRIT (test code = HCT) 41.0 % 37.0-47.0 N MEAN CELL VOLUME (test code = 93.0 fL 81.0-99.0 N MCV) MEAN CELL HGB (test code = MCH) 29.5 pg 27-31 N MEAN CELL HGB CONCENTRATION 31.7 G/DL 33-36.5 L (test code = MCHC) RED CELL DISTRIBUTION WIDTH 18.7 % 12.9-16.9 H (test code = RDW) PLATELET COUNT (test code = 150-440 PLT) MEAN PLATELET VOLUME (test code fL 8.9-12.4 = MPV) NEUTROPHIL % (test code = NT%) 54.6 % 42.2-75.2 N LYMPHOCYTE % (test code = LY%) 35.9 % 20.5-51.1 N MONOCYTE % (test code = MO%) 8.1 % 1.7-9.3 N EOSINOPHIL % (test code = EO%) 1.0 % 0.0-7.0 N BASOPHIL % (test code = BA%) 0.2 % 0-2.5 N NEUTROPHIL # (test code = NT#) 4.89 x10 3/uL 1.80-7.70 N LYMPHOCYTE # (test code = LY#) 3.22 x10 3/uL 1.00-4.80 N MONOCYTE # (test code = MO#) 0.73 x10 3/uL 0.00-0.80 N EOSINOPHIL # (test code = EO#) 0.09 x10 3/uL 0.00-0.45 N BASOPHIL # (test code = BA#) 0.02 x10 3/uL 0.0-0.20 N CHEMISTRY 8 [id number] 11:09:00 Test Item Value Reference Range Interpretation Comments SODIUM POC (test code = NAP) MMOL/L 135-146 N POTASSIUM POC (test code = KP) MMOL/L 3.5-4.9 L CHLORIDE POC (test code = CLP) MMOL/L 98-109 CO2 POC (test code = CO2P) mmol/L 24-29 IONIZED CALCIUM POC (test code = mmol/L 1.12-1.32 N CAIP) GLUCOSE POC (test code = GLUP) mg/dL 70-105 N BUN POC (test code = BUNP) MG/DL 8-26 L CREATININE POC (test code = CREATP) mg/dL 0.6-1.3 N GLOMERULAR FILTRATION RATE POC (test 108 58-135 N code = GFRP) CHEMISTRY 8 [id number] 11:09:00 Test Item Value Reference Range Interpretation Comments SODIUM POC (test code = NAP) 144 MMOL/L 135-146 N POTASSIUM POC (test code = KP) 3.3 MMOL/L 3.5-4.9 L CHLORIDE POC (test code = CLP) 105 MMOL/L 98-109 N CO2 POC (test code = CO2P) 26 mmol/L 24-29 N IONIZED CALCIUM POC (test code = 1.21 mmol/L 1.12-1.32 N CAIP) GLUCOSE POC (test code = GLUP) 83 mg/dL 70-105 N BUN POC (test code = BUNP) 6 MG/DL 8-26 L CREATININE POC (test code = 0.6 mg/dL 0.6-1.3 N CREATP) GLOMERULAR FILTRATION RATE POC 108 58-135 N (test code = GFRP) XR chest 1V [facility] [address] [place] [address] Patient Name: Casi Dong Medical Record#: [id number] Address: [place] City/State/Zip: [place] [address]: Mariely Wells Insurance[facility] Medicaid HMO /Age/Sex: 1970/51/F Self Pay Admit/Reg Date: 01/29/21 OrderingDr: Jun Peoples MD Location: [id number] PCP: Bienvenido Lima MD Date of Service: 03/29/21 Order (s): XR chest 1V CPT Code: 34903 Report Number: [id number] Reason for Exam: pneumothorax Exam: Portable chest. CLINICAL HISTORY: pneumothorax. LOCATION: D4. FINDINGS: Comparison is made with a previous study dated March 28, 2021. A portable AP view of the chest isdated 03/29/2021 at 8:10 AM. The cardiomediastinal silhouette is within normal limits. The left chest tube has been removed. No other change in tubes or lines. There are stable moderate infiltrates at the bilateral upper lungs. There is increased moderate infiltrate at the left lower lung. Mild infiltrate at the right lower lung is stable as well as diffuse interstitial prominence. No pleural effusions. No pneumothorax is appreciated. No acute skeletal or soft tissue abnormalities. IMPRESSION: 1. There is increased moderate infiltrate at the left lower lung. Other findings are stable status post left chest tube removal. Electronically signed by: Cristobal Jackson MD 03/29/2021 9:01 PM [facility] Dictated By: Cristobal Jackson MD 03/29/21820 Signed By: Cristobal Jackson MD 03/29/21820 TD/TT: 03/29/21820 Tech: [id number] cc: [email or web address]; [id number]* Bienvenido Marques MD; Jun Peopels, [facility] [address] [place] [address] Patient Name: Casi Dong Medical Record#: [id number] Address: [address] [place] [address] City/State/Zip: [place] [address]: Mariely Wells Insurance: [facility] Medicaid HMO /Age/Sex: 1970/51/F Self Pay Admit/Reg Date: 01/29/21 OrderingDr: Jun Peoples MD [id number] PCP: Bienvenido Lima MD Date of Service: 03/28/21 Order (s): XR chest 1V CPT Code: 97143 Report Number: [id number] Reason for Exam: pneumothorax EXAMINATION: XR chest 1V CLINICAL INDICATION: Female, 51 years year old with pneumothorax COMPARISON: 03/24/2021 FINDINGS: Single view(s) of the chest submitted. Support Devices: Stable left apical chest tube and left upper extremity PICC line Heart/Mediastinum: Cardiac silhouette is normal in size. Mediastinal contours are normal. Lungs/Pleura: Aeration is slightly improved. Partial bilateral upper lobe consolidations and additional patchy bilateral airspace disease remains. Bones: Visualized skeleton is normal. IMPRESSION: 1. Slight improved bilateral multifocal pneumonia, most prominent within the upper lobes bilaterally. 2. No appreciable pneumothorax. Left apical chest tube in place. Electronically signed by: David De Leon MD 03/28/2021 4:57 PM [employer]CIAL [employer] Dictated By: David De Leon MD 03/28/21 104 Signed By: David De Leon MD 03/28/21 104 TD/TT:03/28/21 104 Tech: [facility] cc: [email or web address]; [id number]* Bienvenido Marques MD; DYLAN YoungR chest 1V [facility] [address] [place] [address] Patient Name: Casi Dong Medical Record#: [id number] Address: [address] [place] [address] City/State/Zip: [place] [address]: Mariely Wells Insurance: [employer] Medicaid HMO /Age/Sex: 1970/51/F Self Pay Admit/Reg Date: 01/29/21 OrderingDr: Jun Peoples MD Location: [address] PCP: Bienvenido Lima MD Date of Service: 03/24/21 Order (s): XR chest 1V CPT Code: 74761 Report Number: [id number] Reason for Exam: pneumothorax EXAMINATION: XR chest 1V CLINICAL INDICATION: Female, 51 years year old with pneumothorax COMPARISON: 03/19/2021, 03/16/2021 FINDINGS: Single view(s) of the chest submitted. Support Devices: Stable left apical chest tube and left upper extremity PICC line. Heart/Mediastinum: Cardiac silhouette is normal in size. Mediastinal contours are normal. Lungs/Pleura: Bilateral multifocal interstitial and alveolar opacities remain. There is no pneumothoraxor pleural effusion. Bones: Visualized skeleton is normal. IMPRESSION: 1. Improvedaeration left lung with no appreciable pneumothorax on today's exam. 2. Persistent extensivebilateral multifocal pneumonia, predominantly involving the upper lobes bilaterally. There is noappreciable effusion. Electronically signed by: David De Leon MD 03/24/2021 8:42 AM DIRECTOR OF FINANCIAL AID Dictated By: David De Leon MD 03/24/21 0659 Signed By: David De Leon MD 03/24/21 0659 TD/TT: 03/24/21 0659 Tech: [facility] cc: [id number]; [id number]* Bienvenido Lima. ; DYLAN YoungR chest [address]V [address] [address] Patient Name: Casi Dong Medical Record#: [id number] Address: [address] [place] [address] City/State/Zip: [place] [address]: Mariely Wells Insurance: [facility] Medicaid O /Age/Sex: 1970 51/F Self Pay Admit/Reg Date: 01/29/21 OrderingDr: Jun Peoples MD Location: SJM6T/SR297-R PCP: Bienvenido Lima MD Date of Service: 03/19/21 Order (s): XR chest 1V CPT Code: 03698 Report Number: [id number] Reason for Exam: chest tube CHEST 1 VIEW CLINICAL INFORMATION: chest tube COMPARISON: March 18, 2021 FINDINGS: The tip of a left-sided chest tube terminates in the apex, unchanged. A small residual left pneumothorax is noted. The pneumothorax has decreased in size from the comparison study. Di ffuse interstitial and patchy alveolar opacities remain in the lungs. Air bronchograms are present. The cardiac silhouette is upper normal in size. A left arm PICC terminates in the superior venacava. IMPRESSION: 1. Small left pneumothorax. A left-sided chest tube is in place.2. Stable diffuse pulmonary opacities. LOCATION: R16 Electronically signed by: Duane Bailey MD 03/19/2021 12:33 PM DIRECTOR OF FINANCIAL AID Dictated By: Duane Bailey MD 03/19/21 122 Signed By: Duane Bailey MD 03/19/211222 TD/TT: 03/19/21 122 Tech: [facility] cc: [email or web address]; [id number]* Bienvenido Lima. ; Jun Peoples, MDXR chest 1V [facility] [address] [place] [address] Patient Name: Casi Dong Medical Record#: [id number] Address: [address] [place] [address] City/State/Zip: [place] [address]: Mariely Wells Insurance: [facility] Medicaid O /Age/Sex: 1970/51/F Self Pay Admit/Reg Date: 01/29/21 OrderingDr: Jun Peoples MD Location: SJM6T/BY488-X PCP: Bienvenido Lima MD Date of Service: 03/18/21 Order (s): XR chest 1V CPT Code: 25302 Report Number: [id number] Reason for Exam: intubation CHEST 1 VIEW CLINICAL INFORMATION: intubation COMPARISON: March 17, 2021 FINDINGS: A left-sided chest tube remains in place with the tip directed towards the medial apex. There is a moderate-sized left pneumothorax. Diffuse interstitial and patchy alveolar opacities are present in the lungs. The cardiac silhouette is normal in size. The left arm PICC terminates in the superior vena cava. The bones are unchanged. IMPRESSION: 1. A left-sided chest tube remains in place. A moderate pneumothorax is redemonstrated. 2. Stable multifocal pneumonia. LOCATION: R16 Electronically signed by: Duane Bailey MD 03/18/2021 10:57 AM DIRECTOR OF FINANCIAL AID Dictated By: Duane Bailey MD 03/18/211031 Signed By: Duane Bailey MD 03/18/211031 TD/TT: 03/18/211031 Tech: [id number] cc: [email or web address]; [id number]* Bienvenido Marques MD; GELY Young chest 1V [facility] [address] [place] [address] Patient Name: Casi Dong Medical Record#: [id number] Address: [address] [place] [address] City/State/Zip: [place] [address]: Mariely Wells [facility] HMO /Age/Sex: 1970/51/F Self Pay Admit/Reg Date: 01/29/21 OrderingDr: Jun Peoples MD Location: SJM6T/MB116-D PCP: Bienvenido Lima MD Date of Service: 03/17/21 Order (s): XR chest 1V CPT Code: 45046 Report Number: [id number] Reason for Exam: To rule out pneumothorax EXAM: Chest x-ray, 1 view Dictation location: L12 COMPARISON: Chest x-ray per formed earlier today INDICATION: To rule out pneumothorax. Previous chest x-ray with increasing pneumothorax with chest tube in place DISCUSSION: 2 frontal images of the chest are submitted. A left-sided chest tube and left subclavian central venous catheter are in similar position. The left-sided pneumothorax is similar or slightly increased in size, now approximately 40- 50% byvolume. There is persistent bilateral pneumonia and partial left upper lobe atelectasis. The cardiac silhouette is within normal limits. No acute bony abnormalities are identified. IMPRESSION: 1. Similar or slightly increased left-sided pneumothorax, approximately 40-50% volume. A left-sided chest tube is again noted. This was discussed by phone with Dr. Peoples, the ordering physician, at 9:14 AM on 03/17/2021. 2. Bilateral pneumonia and superimposed partial atelectasis of the left upper lobe, not significantly changed. Electronically signed by: Jered Silva MD 03/17/2021 9:14 AM DIRECTOR OF FINANCIAL AID Dictated By: Jered Silva MD 03/17/21 0850 Signed By: Jered Silva MD 03/17/21 0850 TD/TT: 03/17/2150 Tech: [id number] cc: [email or web address]; [id number]* Bienvenido Lima. ; Jun Peoples, MDXR chest 1V [facility] [address] [place] [address] Patient Name: Casi Dong Medical Record#: [id number] Address: [address] [place] [address] City/State/Zip: [place] [address]: Mariely Wells [facility] HMO /Age/Sex: 1970/51/F Self Pay Admit/Reg Date: 01/29/21 OrderingDr: Ross Oleary MD Location: SJ6T/CO603-[id number] PCP: Bienvenido Lima MD Date of Service: 03/17/21 Order (s): XR chest 1V CPT Code: 27111 Report Number: [id number] Reason for Exam: shortness of breath EXAM: Portable chest x-ray Dictation location: L12 INDICATION: shortness of breath COMPARISON: Chest x-ray performed one day prior DISCUSSION: The left- sided chest tubehas been advanced, with tip oriented superomedially over the left lung apex. There is now a 40% left-sided pneumothorax, increased from the previous exam. The left upper extremity central venous catheter tip overlies the appropriate position. Bilateral airspace disease is similar except for s lightly increased left upper lobe airspace opacity, consistent with bilateral pneumonia and superimposed partial left upper lobe atelectasis. No pleural effusion or right-sided pneumothorax is seen. The cardiac silhouette is within normal limits. No acute bony abnormalities are identified. IMPRESSION: 1. Increased size of the left pneumothorax, now approximately 40%. A left-sided chest tube is in place and is clamped by history. The tube should be unclamped and a repeat chest x-ray performed. 2. Bilateral pneumonia is similar. There is superimposed partial atelectasis in the left upper lobe. This was discussed by phone with the patient's nurse Westley at 7:55 AM on 03/17/2021. Electronically signed by: Jered Silva MD 03/17/2021 7:56 AM DIRECTOR OF FINANCIAL AID Dictated By: Jered Silva MD 03/17/21 0650 Signed By: Jered Silva MD 03/17/21 0650 TD/TT: 03/17/2150 Tech: [id number] cc: [id number]; [id number]* Bienvenido Marques MD; Ross Oleary, MDXR chest 1V [facility] [address] [place] [address] Patient Name: Casi Biswas Medical Record#: [id number] Address: [address] [place] [address] City/State/Zip: [place] [address]: Mariely Wells Insurance: [employer] Medicaid HMO /Age/Sex: 1970/51/F Self Pay Admit/Reg Date: 01/29/21 OrderingDr: Peter Davies MD Location: [facility] PCP: Bienvenido Lima MD Date of Service: 03/16/21 Order (s): XR chest 1V CPT Code: 08312 Report Number: [id number] Reason for Exam: chf Portable AP chest, 1 view Location Code: D4 CLINICAL HISTORY: CHF with pneumonia COMPARISON: 03/15/2021 COMMENT: The heart size is normal with diffuse fairly extensive bilateral bronchopneumonia is stable from prior days exam. Left thoracostomy tube again seen without evidence of residual pneumothorax. Left-sided PICC line again noted. IMPRESSION: No significant change in extensive bilateral bronchopneumonia, greatest in the upper lobes. Electronically signed by: Get Mcloed MD 03/16/2021 8:36 AM DIRECTOR OF FINANCIAL AID Dictated By: Get Mcleod MD 03/16/21803 Signed By: Get Mcleod MD 03/16/21803 TD/TT: 03/16/21803 Tech: [facility] cc: [email or web address]; PODET* Peter Davies MD; Bienvenido Lima. MDXR chest 1V [facility] [address] [place] [address] Patient Name: Casi Dong Medical Record#: [id number] Address: [address] [place] [address] City/State/Zip: [place] [address]: Mariely Wells [facility] HMO /Age/Sex: 1970/51/F Self Pay Admit/Reg Date: 01/29/21 OrderingDr: Rsos Oleary MD Location: [facility] PCP: Bienvenido Lima MD Date of Service: 03/15/21 Order (s): XR chest 1V CPT Code: 00302 Report Number: [id number] Reason for Exam: shortness of breath LOCATION: R16 CHEST 1 VIEW INDICATION: Dyspnea Pain COMPARISON: Chest radiograph from prior day prior day FINDINGS: Left PICC line tip is at the SVC. Extensive patchymultifocal bilateral pulmonary infiltrates are redemonstrated, predominantly in the mid lungs. No evidence of pleural effusion or pneumothorax. The cardiomediastinal silhouette is unremarkable. The bony thorax is intact. IMPRESSION: Extensive patchy multifocal bilateral pulmonary infiltrates. Predominant at the mid lungs. Electronically signed by: Shelley Ko MD 03/15/2021 7:44 AM DIRECTOR OF FINANCIAL AID Dictated By: Shelley Rangel MD 03/15/21420 Signed By: Shelley Rangel MD 03/15/21420 TD/TT: 03/15/21420 Tech: [id number] cc: [id number]; [id number]* Bienvenido Lima. ; Ross Oleary MDEK Electrocardiogram [address] [address] Patient Name: Casi Dong Medical Record#: [id number] Address: [address] [place] [address] City/State/Zip: [place] [address]: Mariely Wells Insurance: [facility] Medicaid HMO /Age/Sex: 1970/51/F Self Pay Admit/Reg Date: 01/29/21 OrderingDr: Peter Davies MD Location: [address] PCP: Bienvenido Lima MD Date of Service: 03/15/21 Order (s): EKG Electrocardiogram CPT Code: 20284 Report Number: [id number] Reason for Exam: cp Sinus tachycardia Paired ventricular premature complexes Borderline short AZ interval Left atrial enlargement Left ventricular hypertrophy Prolonged QT interval Summary: Abnormal ECG Dictated By: Jose Maurer MD 03/15/21618 Signed By: Jose Maurer MD 03/18/21 1050 TD/TT: 03/15/21618 Tech: [email or web address]: [id number]; PODET* Peter Davies MD; Bienvenido Lima. MDXR chest 1V [address] [address] Patient Name: Casi Dong Medical Record#: [id number] Address: [address] [place] [address] City/State/Zip: [place] [address]: Mariely Wells Insurance: [facility] Medicaid HMO /Age/Sex: 1970/51/F Self Pay Admit/Reg Date: 01/29/21 OrderingDr: Ross Oleary MD Location: [address]-A PCP: Bienvenido Lima MD Date of Service: 03/14/21 Order (s): XR chest 1V CPT Code: 87371 Report Number: [id number] Reason for Exam: shortness of breath LOCATION: R16 CHEST 1 VIEW INDICATION: Dyspnea COMPARISON: Chest radiographfrom prior day. FINDINGS: Right PICC line tip is at the distal SVC. Extensive patchy multifocal bilateral pulmonary infiltrates are seen. Trace left pneumothorax/trace hydropneumothorax. Left chest tube remains, superimposes mid lung. Cardiomediastinal silhouette is stable and normal. IMPRESSION: Extensive patchy multifocal bilateral pulmonary infiltrates are seen. Trace left pneumothorax/trace hydropneumothorax. Left chest tube remains, superimposes mid lung Electronically signed by: Shelley Ko MD 03/14/2021 7:35 AM DIRECTOR OF FINANCIAL AID [id number] By: Shelley Rangel MD 03/14/21657 Signed By: Shelley Holley MD 03/14/2158 TD/TT: 03/14/21657 Tech: [id number] cc: [id number]; [id number]* Bienvenido Marques MD; Ross Oleary, [facility] chest 1V [facility] [address] [place] [address] Patient Name: Casi Dong Medical Record#: [id number] Address: [address] [place] [address] City/State/Zip: [place] [address]: Mariely Wells [facility] O /Age/Sex: 1970 51/F Self Pay Admit/Reg Date: 01/29/21 OrderingDr: Agustina Albert NP [facility] PCP: Bienvenido Lima MD Date of Service: 03/13/21 Order (s): XR chest 1V CPT Code: 03526 Report Number: [id number] Reason for Exam: SHORTNESS OF BREATH. FEBRILE. Location code: H5 Chest 1 view Indication: SHORTNESS OF BREATH. FEBRILE.. Comparison: 03/13/2021 Findings: The heart and mediastinum are not remarkable. Costophrenic angles are clear. Bilateral interstitial airspace disease. Left brachial PICC line tip projects over the atriocaval junction. Left-sided chest tube in place. Subtle left apical pneumothorax. Bone is unremarkable for age. Impression: 1. Bilateral pneumonia 2. Left-sided chest tube. Minimal left apical pneumothorax Electronically signed by:Abdirizak Frye MD 03/13/2021 6:25 PM [facility] Dictated By: Abdirizak Frye MD 03/13/211805 Signed By: Abdirizak Frye MD 03/13/211805 TD/TT: 03/13/211805 Tech: [facility] cc: [id number]; [id number]* Agustina Albert NP; Bienvenido Lima. MDXR chest 1V [facility] [address] [place] [address] Patient Name: Casi Dong Medical Record#: [id number] Address: [address] [place] [address] City/State/Zip: [place] [address]: Mariely Wells [facility]: [facility] HMO /Age/Sex: 1970/51/F Self Pay Admit/Reg Date: 01/29/21 OrderingDr: Ross Oleary MD [facility]: [facility] PCP: Bienvenido Lima MD Date of Service: 03/13/21 Order (s): XR chest 1V CPT Code: 35798 Report Number: [id number] Reason for Exam: shortness of breath Portable AP chest, 1 view Location Code: D4 CLINICAL HISTORY: shortness of breath COMPARISON: 03/12/2021 COMMENT: Left thoracostomy tube again seen without definite pneumothorax. Fairly extensive diffuse bilateral bronchopneumonia noted without significant change. Left-sided PICC line again seen. Heart size is normal. IMPRESSION: No significant interval change. Electronically signed by: Get Mcleod MD 03/13/2021 10:33 AM [facility] Dictated By: Get Mcleod MD 03/13/21 1013 Signed By: Get Mcleod MD 03/13/21 1013 TD/TT: 03/13/21 101 Tech: [employer] cc: [email or web address]; [id number]* Bienvenido Marques MD; Ross Oleary MDG Electrocardiogram [facility] [address] [place], [place] [address] Patient Name: Casi Dong Medical Record#: [id number] Address: [address] [place] [address] City/State/Zip: [place] [address]: Mariely Wells [facility] HMO /Age/Sex: 1970/51/F Self Pay Admit/Reg Date: 01/29/21 OrderingDr: ePter Davies MD [facility] PCP: Bienvenido Lima MD Date of Service: 03/13/21 Order (s): EKG Electrocardiogram CPT Code: 30369 Report Number: [id number] Reason for Exam: cp Sinus tachycardia Multiform ventricular premature complexes Borderline short AZ interval Probable left ventricular hypertrophy Abnormal T, consider ischemia, anterior leads Prolonged QT interval Summary: Abnormal ECG Dictated By: Peter Davies MD 03/13/21 0635 Signed By: Peter Davies MD 03/13/21 0836 TD/TT: 03/13/21 0635 Tech: SVCCPACS cc: [email or web address]; PODET* Peter Davies MD; Bienvenido Lima. MDXR chest 1V [facility] [address] [place] [address] Patient Name: Casi Dong Medical Record#: [id number] Address: [address] [place] [address] City/State/Zip: [place] [address]: Mariely Wells Insurance: [facility] Medicaid HMO /Age/Sex: 1970/51/F Self Pay Admit/Reg Date: 01/29/21 OrderingDr: Saroj Amezcua MD Location: [place] [address] PCP: Bienvenido Lima MD Date of Service: 03/12/21 Order (s): XR chest 1V CPT Code: 80361 Report Number: [id number] Reason for Exam: tube placement LOCATION: H59 EXAM: XR CHEST 1 VIEW INDICATION: tube placement COMPARISON: TECHNIQUE: AP chest FINDINGS: Lines, tubes and hardware: Left PICC tip overlies the expected location of the inferior SVC. There is a stable left-sided chest tube in place. Lungs and pleura: When accounting for differences in technique, similar to slightly improved appearance of diffuse bilateral pulmonary opacities. No definite pleural effusion or appreciable pneumothorax. A skin fold overlies the left hemithorax. Heart and mediastinum: The cardiomediastinal silhouette is stable. Bones: No acute bony abnormality is identified. IMPRESSION: 1. Lines and tubes, as above. 2. Similar to slight interval improvement of bilateral pulmonary opacities. However, interval differences may be secondary to differences in technique. Electronically signed by: Malik Tse MD 03/12/2021 8:43 AM DIRECTOR OF FINANCIAL AID Dictated By: Malik Tse MD 03/12/21 0710 Signed By: Malik Tse MD 03/12/21 0710 TD/TT: 03/12/21 07 Tech: [id number] cc: [email or web address]; [id number]* Bienvenido Marques MD; Saroj Amezcua MD XR chest 1V [facility] [address] [place] [address] Patient Name: Casi Dong Medical Record#: [id number] Address: [address] [place] [address] City/State/Zip: [place] [address]: Mariely Wells Insurance: [facility] Medicaid HMO /Age/Sex: 1970/51/F Self Pay Admit/Reg Date: 01/29/21 OrderingDr: Saroj Amezcua MD Location: [place] [address].[place] PCP: Bienvenido Lima MD Date of Service: 03/11/21 Order (s): XR chest 1V CPT Code: 07547 Report Number: [id number] Reason for Exam: chest tube CHEST, SINGLE VIEW DICTATION LOCATION A1 HISTORY: Chest tube evaluation. A single view of the chest at 9:42 AM was compared to a prior exam from March 10, 2021. FINDINGS: Bilateral pulmonary infiltrates are stable along with cardiomegaly and central pulmonary vascular congestion. No new finding is seen. The endotracheal tube and nasogastric tube have been removed. Left arm PICC and left chest tube remain in good position. No pneumothorax is seen. IMPRESSION: Removal of the endotracheal tube and nasogastric tube. No other new finding or change. Electronically signed by: Chase Josue MD 03/11/2021 10:12 AM [facility] Dictated By: Chase Josue MD 03/11/21 100 Signed By: Chase Josue MD 03/11/211 TD/TT: 03/11/21 100 Tech: [facility] cc:[id number]; [id number]* Bienvenido Marques MD; DYLAN HartleyR chest 1V [facility] [address] [place] [address]50[address] Patient Name: Russell Aj raoulCasi Medical Record#: [id number] Address: [address] [place] [address] City/State/Zip: [place] [address]: Mariely Wells Insurance: [employer] Medicaid HMO /Age/Sex: 1970/51/F Self Pay Admit/Reg Date: 01/29/21 OrderingDr: Peter Davies MD Location: [place] [address] PCP: Bienvenido Lima MD Date of Service: 03/10/21 Order (s): XR chest 1V CPT Code: 82931 Report Number: [id number] Reason for Exam: chf LOCATION: R16 CHEST 1 VIEW INDICATION: CHF COMPARISON: Chest radiograph from prior day FINDINGS: See impression. Extensive patchy multifocal bilateral pulmonary infiltrates. ET tube terminates in the midtrachea. Enteric tube terminates in the stomach. Left PICC line tip is at the distal SVC. Left chest tube superimposes the medial upper lung. Extensive patchy hazy bilateral pulmonary opacities persists. There is slight interval clearing. Trace bilateral pleural effusions. No pneumothorax. Cardiomediastinal silhouette is stable Electronically signed by: Shelley Ko MD 03/10/2021 7:23 AM DIRECTOR OF FINANCIAL AID Dictated By: Shelley Rangel MD 03/10/21619 Signed By: Shelley Rangel MD 03/10/21619 TD/TT: 03/10/21619 Tech: [facility] cc: [id number]; PODET* Peter Davies MD; Bienvenido Marques MD EKG Electrocardiogram [address] [address] Patient Name: Casi Dong Medical Record#: [id number] Address: [address] [place] [address] City/State/Zip: [place] [address]: Mariely Wells Insurance: [facility] Medicaid O /Age/Sex: 1970 51/F Self Pay Admit/Reg Date: 01/29/21 OrderingDr: Peter Davies MD Location: [place] [address].[place] PCP: Bienvenido Lima MD Date of Service: 03/10/21 Order (s): EKG Electrocardiogram CPT Code: 46083 Report Number: [id number] Reason for Exam: cp Sinus rhythm Borderline low voltage, extremity leads Summary: Otherwise Normal ECG Dictated By: Peter Davies MD 03/10/21628 SignedBy: Peter Davies MD 03/13/21835 TD/TT: 03/10/21628 Tech: [facility] cc: [id number]; SAMSON* Peter Davies MD; Bienvenido Lima. MDXR chest 1V [facility] [address] [place], [place] [id number] Patient Name: Casi Dong Medical Record#: [id number] Address: [address] [place] [address] City/State/Zip: [place] [address]: Mariely Wells Insurance: [facility] Medicaid O /Age/Sex: 1970 51/F Self Pay Admit/Reg Date: 01/29/21 OrderingDr: Peter Davies MD Location: [place] [address].[facility] PCP: Bienvenido Lima MD Date of Service: 03/09/21 Order (s): XR chest 1V CPT Code: 50489 Report Number: [id number] Reason for Exam: chf EXAMINATION: XR chest 1V CLINICAL INDICATION: Female, 51 years year old with chf C OMPARISON: 1 day prior FINDINGS: Single view(s) of the chest submitted. Support lines and catheters appears similar. The heart is slightly enlarged but stable. Denser opacities in theupper lobes. Diffuse opacities elsewhere and possibly small effusions appear unchanged. There isno obvious pneumothorax. IMPRESSION: 1. Stable lines and catheters. 2. Denser opacities in the upper lobes. Otherwise unchanged appearance of the chest. Electronically signed by: Keren Manuel MD 03/09/2021 7:55 AM [facility] Dictated By: Keren Manuel MD 03/09/21725 Signed By: Keren Manuel MD 0 03/09/21725 TD/TT: 03/09/21725 Tech: [facility] cc: [id number]; PODET* Peter Davies MD; Bienvenido Lima. MDEKG Electrocardiogram [address] [address] Patient Name: Casi Dong Medical Record#: [id number] Address: [address] [place] [address] City/State/Zip: [place] [address]: Mariely Wells [facility] O /Age/Sex: 1970/51/F Self Pay Admit/Reg Date: 01/29/21 OrderingDr: Peter Davies MD Location: [address] PCP: Bienvenido Lima MD Date of Service: 03/09/21 Order (s): EKG Electrocardiogram CPT Code: 08305 Report Number: [id number] Reason for Exam: cp Sinus tachycardia Multiple ventricular premature complexes Aberrant complex Low voltage, extremity leads Summary: Abnormal ECG Dictated By: Peter Davies MD 03/09/21628 Signed By: Peter Davies MD 03/13/21834 TD/TT: 03/09/21628 Tech: [facility] cc: [email or web address]; PODET* Peter Davies MD; Bienvenido Lima. MDXR chest 1V [address] [address] Patient Name: Casi Dong Medical Record#: [id number] Address: [address] [place] [address] City/State/Zip: [place] [address]: Mariely Wells Insurance: [employer] Medicaid O /Age/Sex: 1970 51/F Self Pay Admit/Reg Date: 01/29/21 OrderingDr: Saroj Amezcua MD Location: [facility] PCP: Bienvenido Lima MD Date of Service: 03/08/21 Order (s): XR chest 1V CPT Code: 27575 Report Number: [id number] Reason for Exam: picc left Portable AP chest, 1 view Location Code: D4 CLINICAL HISTORY: picc left COMPARISON: 03/08/2021 at 8:11 AM COMMENT: Extensive diffuse bilateral infiltrates again seen. Interval insertion of left-sided PICC line with its tip in the mid superior vena cava. Support line andtubes are otherwise intact. IMPRESSION: Uneventful insertion of left-sided PICC line. Extensive pneumonia. Electronically signed by: Get Mcleod MD 03/08/2021 6:38 PM DIRECTOR OF FINANCIAL AID Dictated By: Get Mcleod MD 03/08/211830 Signed By: Get Mcleod MD 03/08/211830 TD/TT: 03/08/211830 Tech: [facility] cc: [email or web address]; [id number]* Bienvenido Marques MD; GELY Hartley chest 1V [facility] [address] [place], [place] [address] Patient Name: Casi Biswas Medical Record#: [id number] Address: [address] [place] [address] City/State/[place] [address]: Mariely Wells Insurance: [facility] [place] [facility] /Age/Sex: 1970 51/F Self Pay Admit/Reg Date: 01/29/21 OrderingDr: Saroj Amezcua MD Location: [facility] PCP: Bienvenido Lima MD Date of Service: 03/08/21 Order (s): XR chest 1V CPT Code: 14603 Report Number: [id number] Reason for Exam: Tube placement EXAMINATION: XR chest 1V CLINICAL INDICATION: Female, 51 years year old with Tube placement COMPARISON: 03/08/2021 FINDINGS: Single view(s) of the chest submitted.Support Devices: Interval placement of a left apical chest tube. ET tube and NG tube remain. Heart/Mediastinum: Cardiac silhouette is stable in size. Mediastinal contours are unchanged.Lungs/Pleura: Evacuation of left-sided pneumothorax. Bilateral multifocal interstitial and alveolar opacities remain. There is no pleural effusion. Bones: Visualized skeleton is normal. IMPRESSION: 1. Improved aeration of the left lung with no pneumothorax following left apical chest tube insertion. 2. Persistent extensive bilateral multifocal pneumonia. Electronically signed by: David De Leon MD 03/08/2021 8:42 AM DIRECTOR OF FINANCIAL AID Dictated By: David De Leon MD 03/08/21825 SignedBy: David De Leon MD 03/08/21825 TD/TT: 03/08/21825 Tech: [id number] cc: [email or web address]; [id number]* Bienvenido Marques MD; GELY Hartley chest 1V [facility] [address] [place] [address] Patient Name: Casi Dong Medical Record#: [id number] Address: [address] [place] [address] City/State/Zip: [place] [address]: Mariely Wells Insurance: [facility] HMO /Age/Sex: 1970/51/F Self Pay Admit/Reg Date: 01/29/21 OrderingDr: Ross Oleary MD [facility] [place] [address] P[facility]: Bienvenido Lima MD Date of Service: 03/08/21 Order (s): XR chest 1V CPT Code: 82480 Report Number: [id number] Reason for Exam: shortness of breath EXAMINATION: XR chest 1V 01/06/2022 at 0533 hrs CLINICAL INDICATION: Female, 51 years year old with Intubation ETT and OG tube placement COMPARISON: 1 day prior FINDINGS: Single view(s) of the chest submitted. There is now a left pneumothorax about 30-40% in volume with slight shift of mediastinum to the right. Dense opacities are unchanged. Patient is nowintubated with the ET tube assisted between the kev and the thoracic inlet. An NG tube is in the stomach, the sidehole is at the level of the diaphragm and can be slightly advanced. The heart and mediastinum appear stable and unremarkable. IMPRESSION: 1. Interval development of about 30-40% left-sided pneumothorax with slight shift of mediastinum to the right. 2. Patient has been intubated and an NG tube placed, the NG tube can be slightly advanced. FIndings called to Dr. Colindres in the ICU by Dr. Manuel at 0722 AM FOR INTERNAL CODING PURPOSES ON LY RESULT CODE: CVR Electronically signed by: Keren Manuel MD 03/08/2021 7:22AM [facility] Dictated By: Keren Manuel MD 03/08/21711 Signed By: Keren Manuel MD 03/08/21711 TD/TT: 03/08/21711 Tech: ARJ11 cc: [email or web address]; [id number]* Bienvenido Marques MD; Ross Oleary MDEKG Electrocardiogram [facility] [address] [place] [address] Patient Name: Casi Dong Medical Record#: [id number] Address: [address] [place] [address] City/State/Zip: [place] [address]: Mariely Wells Insurance: [employer] Medicaid HMO /Age/Sex: 1970/51/F Self Pay Admit/Reg Date: 01/29/21 OrderingDr: Peter Davies MD Location: [address]- PCP: Bienvenido Lima MD Date of Service: 03/08/21 Order (s): EKG Electrocardiogram CPT Code: 98463 Report Number: [id number] Reason for Exam: cp SINUS TACHYCARDIA Low voltage, extremity leads Summary: Abnormal ECG Dictated By: Peter Davies MD 03/08/21624 Signed By: Peter Davies MD 03/08/21 1230 TD/TT: 03/08/21624 Tech: [facility] cc: [email or web address]; PODET* Chema Davies MD; Bienvenido Lima. MDXR chest 1V [facility] [address] [place] [address] Patient Name: Casi Dong Medical Record#: [id number] Address: [address] [place] [address] City/State/Zip: [place] [address]: Mariely Wells [facility] HMO /Age/Sex: 1970/51/F Self Pay Admit/Reg Date: 01/29/21 OrderingDr: Saroj Amezcua MD Location: [address]- PCP: Bienvenido Lima MD Date of Service: 03/07/21 Order (s): XR chest 1V CPT Code: 50387 Report Number: [id number] Reason for Exam: hypoxemia Exam: Portable chest. CLINICAL HISTORY: hypoxemia. LOCATION: . FINDINGS: Comparison is made with a previous study dated March 07, 2021. A portable AP view of the chest isdated 03/07/2021 11:08 AM. There is stable mild cardiomegaly. There are diffuse mild to moderate infiltrates within the lungs bilaterally. Moderate infiltrates at the bilateral mid lungs appear s lightly increased from the previous study. There is a small left pleural effusion. No acute skeletal or soft tissue abnormalities. IMPRESSION: 1. Diffuse mild/moderate infiltrates. Moderate infiltrates at the bilateral midlungs appear slightly increased from the previous study. 2. Stable small left pleural effusion. Electronically signed by: Cristobal Long 03/07/2021 11:50 AM DIRECTOR OF FINANCIAL AID Dictated By: Cristobal Jackson MD 03/07/21 1138 Signed By: Cristobal Jackson MD 03/07/21 1139 TD/TT: 03/07/21 113 Tech: [facility] cc: [email or web address]; [id number]* Bienvenido Lima. ; DYLAN HartleyR chest 1V [address] [address] Patient Name: Casi Dong Medical Record#: [id number] Address: [address] [place] [address] City/State/Zip: [place] [address]: Mariely Wells Insurance: [facility] Medicaid HMO /Age/Sex: 1970/51/F Self Pay Admit/Reg Date: 01/29/21 OrderingDr: Peter Davies MD Location: [place] [address] PCP: Bienvenido Lima MD Date of Service: 03/07/21 Order (s): XR chest 1V CPT Code: 83380 Report Number: [id number] Reason for Exam: chf EXAMINATION: XR chest 1V CLINICAL INDICATION: Female, 51 years year old with chf C OMPARISON: 1 day prior FINDINGS: Single view(s) of the chest submitted. The heart isenlarged but stable. Dense opacities in the upper lobes and more diffuse opacities elsewhere againnoted, there may be slight improved aeration of the lungs with decreasing left effusion. No new c onsolidation or pneumothorax seen. No other changes noted. IMPRESSION: Slight overall improvement with residual left effusion. Electronically signed by: Keren Manuel MD 03/07/2021 7:22 AM [facility] Dictated By: Keren Manuel MD 03/07/21709 Signed By: Keren Manuel MD 03/07/21709 TD/TT: 03/07/21709 Tech: [id number] cc: [id number]; PODET* Peter Davies MD; Bienvenido Lima. MDEKG Electrocardiogram [address] [id number] Patient Name: Casi Dong Medical Record#: [id number] Address: [address] [place] [address] City/State/Zip: [place] [address]: Mariely Wells Insurance: [employer] Medicaid HMO /Age/Sex: 1970/51/F Self Pay Admit/Reg Date: 01/29/21 OrderingDr: Peter Davies MD [facility] PCP: Bienvenido Lima MD Date of Service: 03/07/21 Order (s): EKG Electrocardiogram CPT Code: 80848 Report Number: [id number] Reason for Exam: cp Sinus tachycardia Multiform ventricular premature complexes Probable left ventricular hypertrophy Summary: Abnormal ECG Dictated By: Peter Davies MD 03/07/21637 Signed By: Peter Davies MD 03/08/21 1225 TD/TT: 03/07/21637 Tech: SVCCPACS cc: [email or web address]; PODET* Peter Davies MD; Bienvenido Lima. Echo TTE comp w/dop w cont [address] [address] Patient Name: Casi Dong Medical Record#: [id number] Address: [address] [place] [address] City/State/Zip: [place] [address]: Mariely Wells Insurance: [employer] Medicaid HMO /Age/Sex: 1970/F Self Pay Admit/Reg Date: 01/29/21 OrderingDr: Peter Davies MD [facility] PCP: Bienvenido Lima MD Date of Service: 03/06/21 Order (s): Echo TTE comp w/dop w cont CPT Code: C8929 Report Number: [id number] Reason for Exam: chf Transthoracic Echocardiography Report (TTE) + + !Demographics ! + + Patient Name Russell Encinas Gender Female L Race Unknown ([place] #) Visit Number Room Number JM24.SI MRN # Date of Study 03/07/2021 Accession Number [id number] Referring Physician Date of 1970 [employer] Taz Ruano 51 year(s) Interpreting Samson Green MD Physician Procedure Type of Study TTE procedure: Echo complete w contrast * . Technical Quality: Good visualizationStudy Location: ICU Patient Status: Routine Height: 61 inchesWeight: 94 poundsBSA: 1.37 m 2BMI: 17.76 kg/m 2 Conclusions Summary 2D Study: Moderate LA and LV enlargement, other chambers normal Normal valves Segmental wall motionabnormality Inferior akinesis EF 35% Mild LVH, No effusion Doppler Study: Indeterminate diastolic function Mild AI Moderate MR Dictated By: Peter Davies MD 03/07/211046 Signed By: Peter Davies MD 03/07/211629 TD/TT: 03/07/211046 Tech: [facility] cc: [email or web address]; PODET* Peter Davies MD; Bienvenido Lima. MDXR chest 1V [address] [address] Patient Name: Casi Dong Medical Record#: [id number] Address: [address] [place] [address] City/State/Zip: [place] [address]: Mariely Wells [facility] /Age/Sex: 1970/51/F Self Pay Admit/Reg Date: 01/29/21 OrderingDr: Mariely Alanis MD [facility] PCP: Bienvenido Lima MD Date of Service: 03/06/21 Order (s): XR chest 1V CPT Code: 51253 Report Number: [id number] Reason for Exam: SOB STUDY: Chest radiograph HISTORY: Shortness of breath COMPARISON: 03/05/2021 TECHNIQUE: Frontal view of the chest. FINDINGS: The cardiac silhouette is stable in size. Exte nsive left greater than right pulmonary opacities appear similar since the prior exam. There maybe a small left pleural effusion. There is no discernible pneumothorax. IMPRESSION: Similar appearance of extensive bilateral pulmonary opacities. Suspected small left pleural effusion. Electronically signed by: Ochoa Laird MD 03/06/2021 9:33 AM [facility] Dictated By: Ochoa Laird MD 03/06/21919 Signed By: Ochoa Laird MD 03/06/21919 TD/TT: 03/06/21919 Tech: [facility] cc: [id number]; [email or web address]* Bienvenido Lima. ; Mariely Alanis MDEKG Electrocardiogram [address] [place] [address] Patient Name: Casi Dong Medical Record#: [id number] Address: [address] [place] [address] City/State/Zip: [place] [address]: Mariely Wells [facility] /Age/Sex: 1970 51/F Self Pay Admit/Reg Date: 01/29/21 OrderingDr: Mariely Alanis MD Location: [facility]A PCP: Bienvenido Lima MD Date of Service: 03/06/21 Order (s): EKG Electrocardiogram CPT Code: 96133 Report Number: [id number] Reason for Exam: tachycardia Sinus tachycardia Consider left ventricular hypertrophy Abnormal inferior Q waves Summary: Abnormal ECG Dictated By: Peter Davies MD 03/05/21522 Signed By: Peter Davies MD 03/08/211224 TD/TT: 03/05/21522 [facility] cc: [email or web address]; [email or web address]* Bienvenido Marques MD; YONG Jordan abdomen pelvis w con [address] [address] Patient Name: Casi Dong Medical Record#: [id number] Address: [address] [place] [address] City/State/Zip: [place] [address]: Mariely Wells [facility] /Age/Sex: 1970/F Self Pay Admit/Reg Date: 01/29/21 OrderingDr: Usama Aguilar MD Location: [facility]/JM24.SI-A PCP: Bienvenido Lima MD Date of Service: 03/05/21 Order (s): CT abdomen pelvis wcon CPT Code: 51482 Report Number: [id number] Reason for Exam: abdominal pain EXAM: CT abdomen and pelvis INDICATION: abdominal pain COMPARISON: None at this time LOCATION: H45 CT scan of the abdomen and pelvis was performed with intravenous contrast. One or more of the following radiation dose reduction techniques was used: automated exposure control, adjustment of mA and/or KV according to patient size, and/or utilization of iterative reconstruction technique. FINDINGS: Quality of Exam: Acceptable. LIVER: The liver is unremarkable. BILIARY SYSTEM: There is no biliary dilatation. SPLEEN: The spleen isunremarkable. PANCREAS: The pancreas is unremarkable. ADRENAL GLANDS: The adrenal glands are unremarkable. KIDNEYS: The kidneys appear unremarkable. AORTA: There is no abdominalaortic aneurysm or dissection. THORACIC: There are patchy opacities with consolidation and air bronchograms involving the lower lobes bilaterally. APPENDIX: The appendix appears unremarkable. GASTROINTESTINAL: There is no imaging evidence of large or small bowel obstruction. There is a large amount of stool in the colon. BONES/SOFT TISSUES: No concerning bony lesion identified. LYMPHATICS: No enlarged lymph nodes by CT criteria. PERITONEUM/OTHER: There is a tiny amount of free fluid in the pelvis. No free air is identified. There is a Tobar catheter in the bladder and the bladder is empty. IMPRESSION: There are patchy opacities withconsolidation and air bronchograms involving the lower lobes bilaterally. This is consistent with pneumonia. There is a large amount of stool in the colon. There is a tiny amount of free fluid in the pelvis. Electronically signed by: Zeb Olsen MD03/05/2021 1:24 PM DIRECTOR OF FINANCIAL AID Dictated By: Zeb Olsen MD 03/05/21 130 Signed By: Zeb Olsen MD 03/05/21 1306 TD/TT: 03/05/21 130 Tech: SVCRPA cc: [email or web address]; [email or web address]* Bienvenido Marques MD; Usama Aguilar MDEKG Electrocardiogram [facility] [address] [place] [address] Patient Name: Casi Dong Medical Record#: [id number] Address: [address] [place] [address] City/State/Zip: [place] [address]: Mariely Wells Insurance: [employer] Medicaid HMO /Age/Sex: 1970/51/F Self Pay Admit/Reg Date: 01/29/21 OrderingDr: Usama Aguilar MD Location: [facility]/JM05.AZ-A PCP: Bienvenido Lima MD Date of Service: 03/05/21 Order (s): EKG Electrocardiogram CPT Code: 34123 Report Number: [id number] Reason for Exam: arrhythmiaSinus tachycardia Ventricular premature complex Probable left atrial enlargement Low voltage, extremity leads ST elevation, consider anterior injury Summary: Abnormal ECG Dictated By:Peter Davies MD 03/06/21855 Signed By: Peter Davies MD 03/08/21 1225 TD/TT: 03/06/21855 Tech: [facility] cc: [email or web address]; [email or web address]* Bienvenido Marques MD; Usama Aguilar, MDXR chest 1V [facility] [address] [place] [address] Patient Name: Casi Dong Medical Record#: [id number] Address: [address] [place] [address] City/State/Zip: [place] [address]: Mariely Wells Insurance: [employer] Medicaid HMO /Age/Sex: 1970/51/F Self Pay Admit/Reg Date: 01/29/21 OrderingDr: Usama Aguilar MD Location: [facility]/JM24.SI-A PCP: Bienvenido Lima MD Date of Service: 03/05/21 Order (s): XR chest 1V CPT Code: 76649 Report Number: [id number] Reason for Exam: hypoxemia AFTER HOURS SERVICE ON: 03/05/2021 6:44 AM DIRECTOR OF [employer]ANCIAL AID AP Portable Chest Location Code M12 HISTORY: hypoxemia FINDINGS: There is slight worsening of extensive bilateral alveolar infiltrates more pronounced in the perihilar regions compared to the prior of 03/04/2021. There are no pleural effusions. There is no pneumothorax. Cardiac silhouette is mildly enlarged. IMPRESSION: Worsening extensive bilateral infiltrates. Electronically signed by: Ari Matute MD 03/05/2021 6:44 AM [facility] OF FINANCIAL AID Dictated By: Ari Matute MD 03/05/21612 Signed By: Ari Matute MD 03/05/21612 TD/TT: 03/05/21612 Tech: GPS02 cc: [email or web address]; [email or web address]* Bienvenido Marques MD; Usama Aguilar, MDXR chest 1V [facility] [address] [place] [address] Patient Name: Casi Dong Medical Record#: [id number] Address: [address] [place] [address] City/State/Zip: [place] [address]: Mariely Wells Insurance: [employer] Medicaid HMO /Age/Sex: 1970/51/F Self Pay Admit/Reg Date: 01/29/21 OrderingDr: Ross Oleary MD Location: [place] [address].SI-A PCP: Bienvenido Lima MD Date of Service: 03/04/21 Order (s): XR chest 1V CPT Code: 23366 Report Number: [id number] Reason for Exam: shortness of breath Chest Radiograph History: shortness of breath Comparison: March 03, 2021 Location: [facility] A single frontal view of the chest is submitted. The heart appears unchangedin size. Pulmonary vasculature is unremarkable. There are patchy opacities in the lungs bilaterally. The bones appear unchanged. IMPRESSION: There are patchy opacities in the lungs bilaterally. This could be due to pneumonia. Compared to the prior exam, there has been no significant change. Electronically signed by: Zeb Olsen MD 03/04/2021 2:44 PM DIRECTOR OF FINANCIAL AID Dictated By: Zeb Olsen MD 03/04/21639 Signed By: Zeb Olsen MD 03/04/21639 TD/TT: 03/04/21639 Tech: GPS02 cc: [id number]; [id number]* Bienvenido Marques MD; Ross Oleary, MDXR chest 1V [address] [address] Patient Name: Casi Dong Medical Record#: [id number] Address: [address] [place] [address] City/State/Zip: [place] [address]: Mariely Wells Insurance: [employer] Medicaid HMO /Age/Sex: 1970/51/F Self Pay Admit/Reg Date: 01/29/21 OrderingDr: Jun Peoples MD Location: [address] PCP: Bienvenido Lima MD Date of Service: 03/03/21 Order (s): XR chest 1V CPT Code: 27517 Report Number: [id number] Reason for Exam: Pneumonia EXAMINATION: XR chest 1V CLINICAL INDICATION: Female, 51 years year old with Pneumonia COMPARISON: 02/26/2021 FINDINGS: Single view(s) of the chest submitted. The heart is normal and stable in size. Dense opacities in the upper lobes and more diffuse opacities elsewhere appear similar. No pneumothorax or effusion. No appreciable change. IMPRESSION: Stable appearance of the chest. Electronically signed by: Keren Manuel MD 03/03/2021 7:04 AM [facility] Dictated By: Keren Manuel MD 03/03/2143 Signed By: Keren Manuel MD 03/03/2143 TD/TT: 03/03/2143 Tech: GPS02 cc: [email or web address]; [id number]* Bienvenido Marques MD; Jun Peoples, MDXR chest 1V [address] [address] Patient Name: Casi Dong Medical Record#: [id number] Address: [address] [place] [address] City/State/Zip: [place] [address]: Mariely Wells [facility] O /Age/Sex: 1970 51/F Self Pay Admit/Reg Date: 01/29/21 OrderingDr: Mariely Alanis MD Location: [facility]/JS[facility]19-I PCP: Bienvenido Lima MD Date of Service: 02/26/21 Order (s): XR chest 1V CPT Code: 46252 Report Number: [id number] Reason for Exam: fever Exam: AP chest Location: H 12 History: fever Comparison: 02/06/2021. Findings: Diffuse groundglass opacities seen scattered chronic lung changes. No effusion is seen. The heart size is normal. The mediastinal silhouette is unremarkable. The bony thorax is intact. Impression: Viral pneumonitis superimposed upon chronic changes. Electronically signed by: Tom Marks MD 02/26/2021 9:16 PM DIRECTOR OF FINANCIAL AID Workstation: [id number] Dictated By: Tom Marks MD 02/26/211749 Signed By: Tom Marks MD 02/26/211749 TD/TT: 02/26/211749 Tech: KD161 cc: [email or web address]; [email or web address]* Bienveindo Lima. ; CHUCK Jordan head/brain wo con [address] [address] Patient Name: Casi Dong Medical Record#: [id number] Address: [address] [place] [address] City/State/Zip: [place] [address]: Mariely Wells [facility]: [facility] O /Age/Sex: 1970/F Self Pay Admit/Reg Date: 01/29/21 OrderingDr: Mariely Alanis MD Location: [facility]/TV482-B PCP: Bienvenido Lima MD Date of Service: 02/22/21 Order (s): MR head/brain wocon CPT Code: 90687 Report Number: [id number] Reason for Exam: fall, cva? LOCATION: Q15 HISTORY: 51-year-old female who suffered a fall. COMMENT: Multiplanar, multisequence MRI imaging of this patient's brain was obtained. An unenhanced head CT examination obtained earlier today is available for comparison. The examination demonstrates senescent changes advanced for the patient's stated age of 51 years. Extensive subcortical and deep white matter gliosis is also demonstrated. The diffusion-weighted examination demonstrates no evidence of restricted diffusion abnormalities. The skeleton and soft tissues are unremarkable.Flow voids are demonstrated in the vascular anatomy. IMPRESSION: There are no acute findings in this patient's brain on this unenhanced MRI examination. Senescent changes advanced for the patient's stated age are noted along with extensive periventricular and subcortical white matter gliosis. Electronically signed by: Ochoa Malave MD 02/22/2021 5:34 PM DIRECTOR OF FINANCIAL AID Dictated By: Ochoa Malave MD 02/22/211713 Signed By: Ochoa Malave MD 02/22/211713 TD/TT: 02/22/211713 Tech: [facility] cc: [email or web address]; [email or web address]* Bienvenido Marques MD; Mariely Alanis, MDCT head/brain wo [address] [address] Patient Name: Casi Dong Medical Record#: [id number] Address: [address] [place] [address] City/State/Zip: [place] [address]: Mariely Wells [facility]: [facility] HMO /Age/Sex: 1970/51/F Self Pay Admit/Reg Date: 01/29/21 OrderingDr: Mariely Alanis MD Location: SJM5S/IZ490-S PCP: Bienvenido Lima MD Date of Service: 02/22/21 Order (s): CT head/brain wocon CPT Code: 82582 Report Number: [id number] Reason for Exam: fall CT HEAD WITHOUT CONTRAST CLINICAL HISTORY: Fall COMPARISON: January 17, 2021 TECHNIQUE: 5 mm axial images of the brain were obtained without contrast. Coronal and sagittal reformats were obtained. One or more of the following dose reduction techniques were used: Automated exposure control, adjustment of the mA and/or kV according to patient size, and/or utilization of iterative reconstruction technique. FINDINGS: No acute intracranial hemorrhage or abnormal extra-axial fluid collection is identified. Extensive periventricular and subcortical white matter low- attenuation changes are redemonstrated. The findings are nonspecific but could be related to chronic microvascular ischemic disease. No mass, mass effect, or midline shift isseen. There is no hydrocephalus. The calvarium is intact. The visualized peritoneal sinuses and mastoid air cells are clear. IMPRESSION: 1. No acute intracranial hemorrhage. 2. Extensive periventricular and subcortical white matter low-attenuation changes. The findings are nonspecific but could be related to chronic ischemia, vasculitis, or demyelination. Consider MRI follow-up for further characterization. Location: 6 Electronically signed by: Duane Bailey MD 02/22/2021 12:20 PM DIRECTOR OF FINANCIAL AID Dictated By: Duane Bailey MD 02/22/21 115 Signed By: Duane Bailey MD 02/22/210 TD/TT: 02/22/21 115 Tech: ES135 cc: [email or web address]; [email or web address]* Bienvenido Marques MD; GELY Jordan chest 1V [facility] [address] [place] [address] Patient Name: Casi Dong Medical Record#: [id number] Address: [address] [place] [address] City/State/Zip: [place] [address]: Mariely Wells Insurance: [facility] HMO /Age/Sex: 1970/51/F Self Pay Admit/Reg Date: 01/29/21 OrderingDr: Jun Peoples MD Location: SJM5S/OM636-T PCP: Bienvenido Lima MD Date of Service: 02/06/21 Order (s): XR chest 1V CPT Code: 02153 Report Number: [id number] Reason for Exam: intubation CHEST 1 VIEW CLINICAL INFORMATION: intubation COMPARISON: February 02, 2021 FINDINGS: An endotracheal tube is not identified. The tip of a right arm PICC terminates in thehigh right atrium. The lung volumes are decreased. Diffuse interstitial and patchy alveolar opacities are present in the lungs. Alveolar opacities are most prominent in the upper lobes. No pneumothorax is present. The cardiac silhouette is upper normal in size. The bones are unchanged. IMPRESSION: 1. An endotracheal tube is not identified. Please correlate. 2. Persistentdiffuse mixed pulmonary opacities. No significant change from the comparison study. LOCATION: R16 Electronically signed by: Duane Bailey MD 02/06/2021 10:18 AM [facility] Dictated By: Duane Bailey MD 02/06/211002 Signed By: Duane Bailey MD 02/06/211002 TD/TT: 02/06/211002 Tech: [employer] cc: [email or web address]; [id number]* Bienvenido Marques MD; DYLAN YoungR chest 1V [facility] [address] [place] [address] Patient Name: Casi Dong Medical Record#: [id number] Address: [address] [place] [address] City/State/Zip: [place] [address]: Mariely Wells Insurance: [facility] HMO /Age/Sex: 1970/51/F Self Pay Admit/Reg Date: 01/29/21 OrderingDr: Jun Peoples MD Location: SJM5S/UE259-E PCP: Bienvenido Lima MD Date of Service: 02/02/21 Order (s): XR chest 1V CPT Code: 41288 Report Number: [id number] Reason for Exam: PICC Line Placement LOCATION: Q15 HISTORY: 51-year-old female who is status post PICC line placement. COMMENT: A frontal chest radiograph was obtained at 6:43 p.m., and is compared to a prior study of January 31, 2021. The image was unenhanced for better visualization of the PICC line. There is a right arm PICC line seen with the catheter tip in the cavoatrial junction. Otherwise, the appearance suggests is not significantly changed. Extensive interstitial alveolar airspace disease is again seen throughout the lungs. IMPRESSION: This patient is status post right arm PICC line placement. The catheter tip is in the cavoatrial junction. Electronically signed by: Ochoa Malave MD 02/02/2021 7:14 PM [facility] Dictated By: Ochoa Malave MD 02/02/211905 Signed By: Ochoa Malave MD 02/02/211905 TD/TT: 02/02/211905 Tech: DG127 cc: [email or web address]; [id number]*Bienvenido Marques MD; Jun Peoples MDEK Electrocardiogram [address] [address] Patient Name: Casi Dong Medical Record#: [id number] Address: [address] [place] [address] City/State/Zip: [place] [address]: Mariely Wells Insurance: [facility] Medicaid HMO /Age/Sex: 1970/51/F Self Pay Admit/Reg Date: 01/29/21 OrderingDr: Mariely Alanis MD Location: [address] PCP: Bienvenido Lima MD Date of Service: 02/02/21 Order (s): EKG Electrocardiogram CPT Code: 48884 Report Number: [id number] Reason for Exam: Chest Pain Sinus rhythm Summary: Normal ECG Dictated By: Peter Davies MD 02/02/211726 Signed By: Peter Davies MD 02/03/21 1547 TD/TT: 02/02/211726 Tech: SVCCPACS cc: [email or web address]; [email or web address]* Bienvenido Marques MD; GELY Jordan chest 1V [address] [address] Patient Name: Casi Dong Medical Record#: [id number] Address: [address] [place] [address] City/State/Zip: [place] [address]: Mariely Wells Insurance: [employer] Medicaid HMO /Age/Sex: 1970/50/F Self Pay Admit/Reg Date: 01/29/21 OrderingDr: Charles Jimenez MD, PGY Location: SJM5S/SC065-Q PCP: Bienvenido Lima MD Date of Service: 01/31/21 Order (s): XR chest 1V CPT Code: 88323 Report Number: [id number] Reason for Exam: SOB rapid shallow breathing LOCATION: R16 CHEST 1 VIEW INDICATION: Tachypnea. Dyspnea COMPARISON: Chest radiograph from 01/29/2021 FINDINGS: Extensive patchy multifocal bilateral pulmona ry infiltrates are redemonstrated, pain slightly increased particularly in the upper lungs. No evidence of pleural effusion or pneumothorax. The cardiomediastinal silhouette is unremarkable. The bony thorax is intact. IMPRESSION: Extensive patchy multifocal pneumonia, slight intervalprogression compared to 01/29/2021 exam. Electronically signed by: Shelley Ko MD :39 AM [facility] Dictated By: Shelley Rangel MD 01/31/21930 Signed By: Shelley Rangel MD 01/31/21930 TD/TT: 01/31/21930 Tech: [facility] cc: [id number]; [id number]* Bienvenido Marques MD; Charles Jimenez MD, PGYUS arterial duplex LE BI [address] [address] Patient Name: Casi Dong Medical Record#: [id number] Address: [address] [place] [address] City/State/Zip: [place] [address]: Mariely Wells Insurance: [employer] Medicaid HMO /Age/Sex: 1970 50/F Self Pay Admit/Reg Date: 01/29/21 OrderingDr: Ramon Multani MD, PGY [facility] PCP: Bienevnido Lima MD Date of Service: 01/29/21 Order (s): US arterial duplex LE BI CPT Code: 18188 Report Number: [id number] Reason for Exam: B/l LE pain EXAMINATION: US arterial duplex LE BI CLINICAL INDICATION: Female, 50 years old with B/l LE pain TECHNIQUE: Grayscale, color Doppler, and spectral waveform analysis of the bilateral lower extremity is performed. COMPARISON: None FINDINGS: Doppler: Appropriate triphasic waveforms and velocities are documented in the common femoral, superficial femoral, popliteal, anterior tibial, posterior tibial, and peroneal arteries. There is no hemodynamically significant stenosis or abrupt occlusion. Grayscale: Atherosclerosis visible along the bilateral common femoral and superficial arteries. Additional findings: No additional sonographic abnormality. IMPRESSION: No acute sonographic abnormality, no evidence of hemodynamically significant stenosis. Electronically signed by: Zenia Dan MD 01/30/2021 12:09 AM DIRECTOR OF FINANCIAL AID Dictated By: Zenia Dan MD 01/29/212036 Signed By: Zenia Dan MD 01/29/212036 TD/TT: 01/29/212036 Tech: [facility] cc: [email or web address]; [facility]* Ramon Multani MD, PGY; Bienvenido Lima. MDCT angio chest with contrast [facility] [address] [place] [address] Patient Name: Casi Dong Medical Record#: [id number] Address: [address] [place] [address] City/State/Zip: [place] [address]: Mariely Wells [facility]: [facility] O /Age/Sex: 1970/50/F Self Pay Admit/Reg Date: 01/29/21 OrderingDr: Derrick Branham MD [facility] PCP: Bienvenido Lima MD Date of Service: 01/29/21 Order (s): CT angio chest with contrast CPT Code: 07166 Report Number: [id number] Reason for Exam: hypoxia Location: H3 Chest CTA , 01/29/2021 TECHNIQUE: Chest CTA with intravenous contrast was performed on a helical scanner. 2D Coronal and sagittal images acquired on the CT workstation system by the geospatial information technologist. This was acquired utilizing MPR projections with Volumetric imaging acquired. Acquisition of axial scanning performed from thoracic inlet through diaphragms. 100 mL of Omnipaque 300 was administered for contrast. Vascular protocol performed. Scanning conducted in the axial plane with 1.5 mm contiguous axial slice thickness. The exami nation was performed on a updated helical CT scanner utilizing low-dose radiation technique. Automatic exposure time was utilized to reduce radiation dose. CLINICAL HISTORY: Hypoxia.COMPARISON EXAMS: Chest CTA exam of 01/19/2021 and to the chest x-ray exam conducted on 01/29/2021 FINDINGS: No PE or acute aortic syndrome is seen. The pulmonary arteries are fairly well-opacified. There are scattered bullous changes in the lung apices without a pneumothorax orpneumomediastinum. Fairly extensive areas of groundglass infiltrate. There is some degree ofairspace consolidation in the lower lobes. This is slightly progressed in particular posteriorly in the left lower lobe. No endobronchial lesion or significant pleural collection. No cavitary lesion. No pathological mediastinal or hilar adenopathy is seen. There is a calcified right hilar lymph node consistent with granulomatous disease. Heart size within normal limits. Nocardiac decompensation seen . Minimal coronary artery vascular calcifications are noted. Upper abdominal structures visualized are unremarkable. IMPRESSION: No PE Presence of fairly extensive infiltrates with groundglass opacification of concern for Covid pneumonia. Slight increasing areas of consolidation in the lower lobes especially in the posterior segment of the left lower lobe when compared to 01/19/2021 exam Electronically signed by: Nery García MD 01/29/2021 11:51 AM DIRECTOR OF FINANCIAL AID Dictated By: Nery García MD 01/29/21 1104 Signed By: Nery García MD 01/29/21 1104 TD/TT: 01/29/21 1104 [facility]: [facility]ACScc: [email or web address]; SKECH* Derrick Branham MD; Bienvenido Lima. MDEKG ED Electrocardiogram [address] [address] Patient Name: Casi Dong Medical Record#: [id number] Address: [address] [place] [address] City/State/Zip: [place] [address]: Mariely Wells Insurance: [facility] Medicaid O /Age/Sex: 1970/50/F Self Pay Admit/Reg Date: 01/29/21 OrderingDr: Derrick Branham MD Location: [facility][id number] PCP: Bienvenido Lima MD Date of Service: 01/29/21 Order (s): EKG ED Electrocardiogram CPT Code: 65314 Report Number: [id number] Reason for Exam: sob Sinus tachycardia Probable left atrial enlargement Borderline prolonged QT interval Summary: Borderline ECG Dictated By: Peter Davies MD 01/29/21708 Signed By: Peter Davies MD 01/31/21 1553 TD/TT: 01/29/21 0709 Tech: SVCCPA cc: [email or web address]; SKECH* Derrick Branham MD; Bienvenido Lima. MDXR chest 1V [address] [address] Patient Name: Casi Dong Medical Record#: [id number] Address: [address] [place] [address] City/State/Zip: [place] [address]: Derrick rivero MD [facility]: [facility] O /Age/Sex: 1970 50/F Self Pay Admit/Reg Date: 01/29/[address]: Derrick Branham MD Location: [facility]/ PCP:Bienvenido Lima MD Date of Service: 01/29/21 Order (s): XR chest 1V CPT Code: 24724 Report Number: [id number] Reason for Exam: cough, sob Chest one view AP 01/29/2021 7:52 AM DIRECTOR OF FINANCIAL AID CLINICAL INDICATION: Cough, shortness of breath COMPARISON: 01/21/2021 LOCATION: W1 IMPRESSION: Cardiomediastinal contours are stable. Bilateral multifocal pneumonia is similar appearing. Electronically signed by:Beau Robles MD 01/29/2021 7:53 AM DIRECTOR OF FINANCIAL AID Dictated By: Bar Robles MD 01/29/21740 Signed By: Bar Robles MD 01/29/21740 TD/TT: 01/29/21740 Tech: VengaST. MARY'S MEDICAL CENTERExcep Apps cc: [email or web address]; SKECH* Derrick Saul MD; Bienvenido Lima. MDXR chest 1V [facility] [address] [place] [address] Patient Name: Casi Dong Medical Record#: [id number] Address: [address] [place] [address] City/State/Zip: [place] [address]: Mariely Wells Insurance: [facility] Medicaid HMO /Age/Sex: 1970/50/F Self Pay Admit/Reg Date: 01/19/21 OrderingDr: Ramon Multani MD, PGY Location: [id number] PCP: Bienvenido Lima MD Date of Service: 01/21/21 Order (s): XR chest 1V CPT Code: 41881 Report Number: [id number] Reason for Exam: Possible PCP pneumonia EXAMINATION: XR chest 1V CLINICAL INDICATION: Female, 50 years old with Possible PCP pneumonia COMPARISON: CT chest dated 01/19/2021 FINDINGS: Single view(s) of the chest submitted. Support Devices: None. Heart: Cardiac silhouette is normal in size. Mediastinum: Mediastinal contours are normal. Lungs: Pulmonary vessels are normal in size.Patchy bilateral airspace opacities appear relatively unchanged when compared to prior. Pleura: No pleural effusion is identified. No pneumothorax is present. Bones: Visualized skeleton is normal. IMPRESSION: No significant interval change. Electronically signed by: Vicky Pascal MD 01/21/2021 11:52 AM DIRECTOR OF FINANCIAL AID Dictated By: Vicky Pascal MD 01/21/21 114 Signed By: Vicky Pascal MD 01/21/211140 TD/TT: 01/21/21 114 Tech: [id number] cc: [email or web address]; TORKUMAR* Ramon Multani MD, PGY; Bienvenido Lima. MDCT angio chest with contrast [facility] [address] [place] [address] Patient Name: Casi Dong Medical Record#: [id number] Address: [address] [place] [address] City/State/Zip: [place] [address]: Domingo Borges MD Insurance: [facility] Medicaid HMO /Age/Sex: 1970/50/F Self Pay Admit/Reg Date: 01/19/[address]: Domingo Borges MD Location: [facility]/ PCP: Bienvenido Lima MD Date of Service: 01/19/21 Order (s): CT angio chest with contrast CPT Code: 17662 Report Number: [id number] Reason for Exam: syncope LOCATION: Q15 HISTORY: 50-year-old female who presents with a syncopal episode. COMMENT: Axial CT imaging of this patient's chest was obtained from the thoracic inlet to the upper abdomen with IV contrast utilizing pulmonary embolism protocol. Soft tissue and lung window images were submitted in the axial plane. Coronal and sagittal reconstructions were included.One or more of the following dose reduction techniques were used: Automated exposure control, adjustment of the mA and/or kV according the patient size, and/or utilization of iterative reconstruction technique. DLP: Radiation dose details were not available. CONTRAST: 74 mL of Omnipaque 350 nonionic contrast was injected patient's right arm. Serum creatinine level was 0.55 and the estimated GFR was greater than 60 mL/m. FINDINGS: The pulmonary arteries exhibit no suspicious filling defects. The thoracic aorta and great vessels are unremarkable. The cardiac silhouette and the pulmonary venous return are unremarkable. The lungs demonstrate extensive interstitial airspace disease predominating in the lung apices and the superior segmental regionsof both lower lobes. No adenopathy is seen and no pleural effusions are seen. The thoracic inlet, chest wall, and the upper abdomen are unremarkable. IMPRESSION: There is no evidence for pulmonary embolism in this CT study of chest are Widespread interstitial airspace disease is seen in the lungs, predominating in the upper lobes and in the superior segments of both lower lobes. Electronically signed by: Ocoha Malave MD 01/19/2021 8:57 PM DIRECTOR OF FINANCIAL AID Dictated By: Ochoa Malave MD 01/19/212036 Signed By: Ochoa Malave MD 01/19/212036 TD/TT: 01/19/212036 Tech: [id number] cc: [email or web address]; THELA* Bienvenido Marques MD; Domingo Borges, MDCT head/brain wo con [address] [address] Patient Name: Casi Biswas Medical Record#: [id number] Address: [address] [place] [address] City/State/Zip: [place] [address]: Domingo Borges MD Insurance: [facility] Medicaid HMO /Age/Sex: 1970/50/F Self Pay Admit/Reg Date: 01/19/[address]: Domingo Borges MD Location: [facility]/ PCP: Bienvenido Lima MD Date of Service: 01/19/21 Order (s): CT head/brain wo con CPT Code: 36551 Report Number: [id number] Reason for Exam: syncope LOCATION: Q15 HISTORY: 50-year-old female who suffered a syncopal episode. COMMENT: Axial imaging of the patient's brain was obtained without IV contrast. Soft tissue and bone window images were provided. Coronal and sagittal reconstructions were included. An older examination of January 11, 2021 is available for comparison. The current study was obtained within 24 hours of the patient's arrival to this facility. One or more of the following dose reduction techniques were used: Automated exposure control, adjustment of the mA and/or kV according to patient size, and/or utilization of iterative reconstruction technique. DLP: 818 mGy-cmCONTRAST: None. FINDINGS: There is no evidence of acute mass effect, midline shift, hemorrhage, or herniation. Again seen is a patchy periventricular white matter gliosis, unchanged from the earlier study. There is no CT evidence of an acute infarct. The skeleton is intact. The visualized paranasal sinuses and air cells are clear. The soft tissues are unremarkable. IMPRESSION: There are no acute findings in this patient's brain. No changes occurred since a study obtained earlier this month. Electronically signed by: Ochoa Malave MD 01/19/2021 6:45 PM DIRECTOR OF FINANCIAL AID Dictated By: Ochoa Malave MD 01/19/211831 Signed By: Ochoa Malave MD 01/19/211831 TD/TT: 01/19/211831 Tech: [id number] cc: [email or web address]; THELA* Bienvenido Marques MD; Domingo Borges, YONG facial bones wo con [address] [address] Patient Name: Casi Dong Medical Record#: [id number] Address: [address] [place] [address] City/State/Zip: [place] [address]: Domingo Borges MD Insurance: [facility] Medicaid HMO /Age/Sex: 1970/50/F Self Pay Admit/Reg Date: 01/19/[address]: Domingo Borges MD Location: [facility]/ PCP: Bienvenido Lima MD Date of Service: 01/19/21 Order (s): CT facial bones wo con CPT Code: 82026 Report Number: [id number] Reason for Exam: right jaw pain s/p fall LOCATION: Q15 HISTORY: 50-year-old female who presents with right-sided jaw pain after suffering a fall. COMMENT: Axial CT imaging of this patient's mid face was obtained. Soft tissue and bone images were submitted. Coronal and sagittal reconstructions were included. Three-dimensional reconstructions of the skeletal anatomy was obtained at a remote workstation and submitted in rotational projections One or more of the following dose reduction techniques were used: Automated exposure control, adjustment of the mA and/or kV according the patient size, and/or utilization of iterative reconstruction technique. DLP: 387.2 mGy-cm CONTRAST: None FINDINGS: The mid face skeleton is intact. The visualized paranasal sinuses and air cells are clear. The orbital soft tissues are unremarkable. There is mild soft tissue swelling seen inthe right malar eminence. IMPRESSION: No acute bony injuries are seen in this patient's maxillofacial anatomy. Mild soft tissue swelling is seen in the right malar eminence. Electronically signed by: Ochoa Malave MD 01/19/2021 6:47 PM DIRECTOR OF FINANCIAL AID Dictated By: Ochoa Malave MD 01/19/211831 Signed By: Ochoa Malave MD 01/19/211831 TD/TT: 01/19/211831 Tech: [facility] cc: [email or web address]; [facility]* Bienvenido Marques MD; GELY Bullock clavicle RT [address] [address] Patient Name: Casi Dong Medical Record#: [id number] Address: [address] [place] [address] City/State/Zip: [place] [address]: Domingo Borges MD Insurance: [facility] Medicaid HMO /Age/Sex: 1970/50/F Self Pay Admit/Reg Date: 01/19/[address]: Domingo Borges MD Location: [facility]/ PCP: Bienvenido Lima MD Date of Service: 01/19/21 Order (s): XR clavicle RT CPT Code: 05932 Report Number: [id number] Reason for Exam: clavicle painLOCATION: Q15 HISTORY: 50-year-old female who presents with pain in her right clavicle aftersuffering a fall. COMPARISON: None. COMMENT: Frontal and axial of the patient's right clavicle were obtained. The skeleton is intact, and normally mineralized. The sternoclavicular and acromioclavicular joint spaces are well maintained. The surrounding soft tissues are unremarkable. IMPRESSION: Unremarkable radiographic examination of the right clavicle. E lectronically signed by: Ochoa Malave MD 01/19/2021 6:48 PM [facility] [id number] By: Ochoa Malave MD 01/19/211840 Signed By: Ochoa Malave MD 01/19/211840 TD/TT: 01/19/211840 Tech: [employer] cc: [email or web address]; [facility]* Bienvenido Marques MD; GELY Bullock shoulder RT min 2V [facility] [address] [place] [address] Patient Name: Casi Dong Medical Record#: [id number] Address: [address] [place] [address] City/State/Zip: [place] [address]: Domingo Borges MD Insurance: [facility] Medicaid HMO /Age/Sex: 1970/50/F Self Pay Admit/Reg Date: 01/19/[address]: Domingo Borges MD Location: [facility]/ PCP: Bienvenido Lima MD Date of Service: 01/19/21 Order (s): XR shoulder RT min 2V CPT Code: 57566 Report Number: [id number] Reason for Exam: traumaLOCATION: Q15 HISTORY: 50-year-old female who presents with right shoulder pain following trauma. COMMENT: Frontal radiographs of the patient's right shoulder were obtained with the humerus internally and externally rotated. A scapular Y-view was included. The skeleton is intact, and normally mineralized. The glenohumeral and acromioclavicular joints are with normal limits. The soft tissues are unremarkable. IMPRESSION: Unremarkable radiographic examination of the right shoulder. Electronically signed by: Ochoa Malave MD 01/19/2021 6:49 PM DIRECTOR OF FINANCIAL AID Dictated By: Ochoa Malave MD 01/19/211841 Signed By: Ochoa Malave MD 01/19/211841 TD/TT: 01/19/211841 Tech: [facility] cc: [email or web address]; THELA* Bienvenido Marques MD; GELY Bullock chest 1V [facility] [address] [place] [address] Patient Name: Casi Dong Medical Record#: [id number] Address: [address] [place] [address] City/State/Zip: [place] [address]: Domingo Borges MD Insurance: [employer] Medicaid HMO /Age/Sex: 1970/50/F Self Pay Admit/Reg Date: 01/19/[address]: Domingo Borges MD Location: [facility]/ PCP: Bienvenido Lima MD Date of Service: 01/19/21 Order (s): XR chest 1V CPT Code: 33027 Report Number: [id number] Reason for Exam: fallLOCATION: Q15 HISTORY: 50-year-old female who suffered a fall. COMMENT: A frontal chest radiograph was obtained at 6:10 PM, and is compared to study of January 11, 2021. An older examination of May 28, 2013 is available. Multifocal interstitial airspace disease is again seen, and appears to have the increased in prominence particularly in the upper lung zones when compared to the prior study. The infiltrates in the midlung zones lung bases are unchanged. Thecardiac silhouette and mediastinum are unremarkable. Skeleton and soft tissues are unremarkable. IMPRESSION: Multifocal consolidations are again seen in this patient's lungs. The consoli dations appear to have increased in prominence in the upper lung zones. Electronically signed by: Ochoa Malave MD 01/19/2021 6:52 PM DIRECTOR OF FINANCIAL AID Dictated By: Alexa Malave MD 01/19/211840 Signed By: Ochoa Malave MD 01/19/211840 TD/TT: 01/19/211840 Tech: [facility] cc: [email or web address]; ALMAZ* Bienvenido Marques MD; Domingo Borges MDAlphonso ED Electrocardiogram [address] [address] Patient Name: Casi Dong Medical Record#: [id number] Address: [address] [place] [address] City/State/Zip: [place] [id number]: Mariely Wells Insurance: [facility] Medicaid HMO /Age/Sex: 1970 50/F Self Pay Admit/Reg Date: 01/19/21 OrderingDr: Domingo Borges MD Location: [address] PCP: Bienvenido Lima MD Date of Service: 01/19/21 Order (s): EKG ED Electrocardiogram CPT Code: 27475 Report Number: [id number] Reason for Exam: syncope Sinus rhythm Probable left atrial enlargement Prolonged QT interval Summary: Abnormal ECG I51.7 Dictated By: Jassi Yo MD 01/19/212057 Signed By: Jassi Yo MD 01/23/211252 TD/TT: 01/19/212057 Tech: [id number] cc: [email or web address]; ELIE Marques MD; Domingo Borges MDPort [place] TTE comp w/dop w cont [address] [address] Patient Name: Casi Dong Medical Record#: [id number] Address: [address] [place] [address] City/State/Zip: [place] [address]: Adiel Beltre MD Insurance: [facility] Medicaid HMO /Age/Sex: 1970 50/F Self Pay Admit/Reg Date: 01/11/[address]: Janice South MD Location: [id number] PCP: Bienvenido Lima MD Date of Service: 01/12/21 Order (s): Echo TTE comp w/dop w cont CPT Code: C8929 Report Number: [id number] Reason for Exam: Chest pain. shortness of breath Transthoracic Echocardiography Report (TTE) + + !Demographics ! + + Patient Name Russell Encinas Gender Female L Race Unknown ([place] #) Visit Number Room Number [id number] N # Date of Study 01/12/2021 Accession Number [id number] Referring Physician Date of 1970 [employer] Micheal Campo Age 50 year(s) Interpreting Yaw Tijerina Physician Procedure Type of Study TTE procedure: Echo complete w contrast * . Technical Quality: Good visualizationStudy Location: PortablePatient Status: Routine Conclusions Summary Ejection fraction is visually estimated at 40-45%. Impaired relaxation compatible with diastolic dysfunction. ( reversed E/A ratio) Moderate mitral regurgitation is present. Mqgl-fk-aaflurbj aortic regurgitation is noted. Mild tricuspid regurgitation Left Atrium LA Dimension: 3.5 cm LA/Aorta: 1.17 Left Ventricle Diastolic Dimension: 5.33 cm Systolic Dimension: 4.26 cm Septum Diastolic: 1.21 cm Septum Systolic: 1.64 cm PW Diastolic: 1.21 cm PW Systolic: 1.64 cm Area Diastolic: 26.8 cm 2 Area Systolic: 14.7 cm 2 LV EDV/LV EDV Index: 76.1 ml FS: 20.08 % EF Simpsons: 60.71% LV ESV/LV ESV Index: 29.9 ml LV Length: 7.84 cm LVOT Diameter: 2 cm Right Atrium RA Systolic Pressure: 10 mmHg Right Ventricle RV Systolic Pressure: 14.24 mmHg Miscellaneous Aorta Aortic Root: 3 cm LVOT Diameter: 2 cm Mitral Valve Peak E-Wave: 92.4 cm/s Peak A-Wave: 77.1 cm/s E/A Ratio: 1.2 Peak Gradient: 3.42 mmHg Tissue Doppler E/Med E' Velocity: 8.61 Aortic Valve Peak Velocity: 121 cm/s Mean Velocity:94.5 cm/s Peak Gradient: 5.86 mmHg Mean Gradient: 4 mmHg Area (continuity): 2.29cm 2 AV VTI: 26.1 cm Tricuspid Valve Estimated RVSP: 15 mmHg Estimated RAP: 10 mmHg TR Velocity: 103 cm/s TR Gradient: 4.2436 mmHg Pulmonic Valve Estimated PASP: 14.24 mmHg LVOT Peak Velocity: 86.7 cm/s Mean Velocity: 68 cm/s Peak Gradient: 3 mmHg Mean Gradient: 2 mmHg LVOT Diameter: 2 cm LVOT VTI: 19 cm M-Mode/2D Measurements (cm) LVEDd: 5.33 cm LVESd: 4.26 cm IVSEd: 1.21 cm IVSEs: 1.64 cm LVPWd: 1.21 cmLVPWs: 1.64 cm AO Root Dimension: 3 cmLA: 3.5 cm LVOT: 2 cm Findings Mitral Valve Moderate mitralregurgitation is present. Aortic Valve Lhzx-qk-uyfsftpe aortic regurgitation is noted. Tricuspid Valve Mild tricuspid regurgitation Pulmonic Valve Normal pulmonic valve structure and function. Left Atrium Normal left atrium. Left Ventricle Ejection fraction is visually estimated at40-45%. Impaired relaxation compatible with diastolic dysfunction. ( reversed E/A ratio) RightAtrium Normal right atrium. Right Ventricle Normal right ventricle structure and function. Pericardial Effusion No evidence of pericardial effusion. Pleural Effusion No evidence of pleural effusion. Dictated By: Breezy Tidwell MD 01/12/211958 Signed By: Breezy Tidwell MD 01/14/21 1012 TD/TT: 01/12/211958 Tech: [facility] cc: ABEBE; [id number]; [id number]* Bienvenido Marques MD; Breezy Tidwell MD; Janice South MDCT head/brain wo con [address] [address] Patient Name: Casi Dong Medical Record#: [id number] Address: [address] [place] [address] City/State/Zip: [place] [address]: Adiel Beltre MD Insurance: [facility] Medicaid HMO /Age/Sex: 1970/50/F Self Pay Admit/Reg Date: 01/11/[address]: Dylon Davison MD Location: [place] [address] PCP: Bienvenido Lima MD Date of Service: 01/11/21 Order (s): CT head/brain wo con CPT Code: 47801 Report Number: [id number] Reason for Exam: cocaine use, headache E XAMINATION: CT head/brain wo con CLINICAL INDICATION: Female, 50 years old with cocaine use, headache TECHNIQUE: Axial CT images from the skull base to the vertex without intravenous contrast. Coronal and sagittal reformatted images were created from the data set. One or more of the following dose reduction techniques were used: Automated exposure control, adjustment of themA and/or kV according to patient size, and/or iterative reconstruction. COMPARISON: CT brain without contrast 10/20/2020 FINDINGS: Intracranial: There is no evidence of acute intracranial hemorrhage or extra-axial collection. Mild diffuse cerebral cortical atrophy is present, greater than expected in a patient of this age. Moderate periventricular and deep white matter low-density changes are present. In a patient of this age, these may be attributed to benign/remote/incidental causes (e.g. prior trauma/inflammation/demyelination,or chronic ischemia associated with atherosclerosis/other vasculopathies). The ventricles are normal in size, shape and position. Vascular: The larger dural venous sinuses are grossly normal. No significant atherosclerotic plaque. Sinuses: Mild chronic appearing mucosal thickening in the base of the left maxillary sinus. Bones: The osseous structures and orbits have no significant abnormalities. Soft tissue: No significant soft tissue abnormalities. IMPRESSION: 1. No evidence of acute intracranial hemorrhage or abnormal mass effect. 2.Moderate periventricular and deep white matter low-density changes which may be attributed to benign/remote/incidental causes (e.g. prior trauma/inflammation/demyelination,or chronic ischemia associated with atherosclerosis/other vasculopathies and a patient this age. 3. Mild cerebral atrophy, greater than expected in a patient of this age. Electronically signed by: Zenia Dan MD 01/11/2021 11:36 PM [facility] Dictated By: Zenia Dan MD 01/11/212319 Signed By: Zenia Dan MD 01/11/212319 TD/TT: 01/11/212319 Tech: [id number]: [id number]; [id number]* Bienvenido Marques MD; DYLAN YeeR chest 1V [address] [address] Patient Name: Casi Dong Medical Record#: [id number] Address: [address] [place] [address] City/State/Zip: [place] [address]: Dylon Davison MD Insurance: [employer] /Age/Sex: 1970/50/F Self Pay Admit/Reg Date: 01/11/[address]: Dylon Davison MD Location: [facility]/ PCP: Bienvenido Lima MD Date of Service: 01/11/21 Order (s): XR chest 1V CPT Code: 87813 Report Number: [id number] Reason for Exam: chest pain EXAM: Chest x-ray, 1 view Location code: H10 COMPARISON: Chest x-ray on 12/18/2020 INDICATION: chest pain DISCUSSION: Bilateral airspace disease is increased compared to the previous exam on 12/18/2020. No pleural effusion or pneumothorax is seen. The cardiomediastinal silhouette is within normal limits. No acute bony abnormalities are identified. IMPRESSION: Bilateral pneumonia is worsened compared to the previous exam on 12/18/2020. Electronically signed by:Jered Silva MD 01/11/2021 8:22 PM DIRECTOR OF FINANCIAL AID Dictated By: Jered Silva MD 01/11/211946 Signed By: Jered Silva MD 01/11/211946 TD/TT: 01/11/211946 Tech: [employer] cc: [email or web address]; [id number]* Bienvenido Marques MD; Dylon Davison MDG ED Electrocardiogram [facility] [address] [place] [address] Patient Name: Casi Dong Medical Record#: [id number] Address: [address] [place] [address] City/State/Zip: [place] [address]: Adiel Beltre MD Insurance: [facility] Medicaid HMO /Age/Sex: 1970/50/F Self Pay Admit/Reg Date: 01/11/[address]: Adiel Beltre MD Location: [id number] PCP: Bienvenido Lima MD Date of Service: 01/11/21 Order (s): EKG ED Electrocardiogram CPT Code: 81877 Report Number: [id number] Reason for Exam: sob Sinus tachycardia Probable left atrial enlargement Borderline repolarization abnormality Borderline prolonged QT interval Summary: Abnormal ECG Dictated By: Breezy Tidwell MD 01/11/211856 Signed By: Breezy Tidwell MD 01/12/21 1435 TD/TT: 01/11/211856 Tech: SVPACS cc: GLORY JACOBS* Bienvenido Lima. ; GELY Lyons chest 1V [address] [address] Patient Name: Casi Dong Medical Record#: [id number] Address: [address] [place] [address] City/State/Zip: [place] [address]: Miki Gresham Insurance: [employer] /Age/Sex: 1970 50/F Self Pay Admit/Reg Date: 12/18/[address]: Miki Smith DO Location: [facility]/ PCP: Date of Service: 12/18/20 Order (s): XR chest 1V CPT Code: 96389 Report Number:[id number] Reason for Exam: Fever Location code: H5 Chest 1 view Indication: Fever. Comparison: None Findings: The heartand mediastinum are not remarkable. Costophrenic angles are clear. Diffuse bilateral airspace disease with patchy consolidation. Bone is unremarkable for age. Impression: 1. Bilateral pneumonia. Electronically signed by: Abdirizak Frye MD 12/18/2020 8:54 PM CDT Dictated By: Abdirizak Frye MD 12/18/202043 Signed By: Abdirizak Frye MD 12/18/202043 TD/TT: 12/18/202043 Tech: ARJ11 cc: Bienvenido Paiz; [id number]* Miki Smith DO; Bienvenido Paiz NEKG ED Electrocardiogram [address] [address] Patient Name: Casi Dong Medical Record#: [id number] Address: [address] [place] [address] City/State/Zip: [place] [address]: Adiel Beltre MD Insurance: [employer] /Age/Sex: 1970 50/F Self Pay Admit/Reg Date: 12/18/[address]: Adiel Beltre MD Location: [facility]/[id number] PCP: Date of Service: 12/18/20 Order (s): EKG ED Electrocardiogram CPT Code: 14015 Report Number: [id number] Reason for Exam: chest pain Sinus tachycardia Biatrial enlargement Borderline T wave abnormalities Borderline prolonged QT interval Artifact in lead(s) I,III,aVL,aVF,V4 Summary: Abnormal ECG Dictated By: Breezy Tidwell MD 12/18/201934 Signed By: Breezy Tidwell MD 12/19/201210 TD/TT: 12/18/201934 Tech: [facility] cc: GLADIS; Bienvenido Paiz* Bienvenido Pazi; GELY Degroot chest 1V [facility] [address] [place] [address] Patient Name: Danay Manning Medical Record#: [id number] Address: Unknown City/State/Zip: [place] [address]: Raisa Junior MD Insurance: Self Pay /Age/Sex: 02/25/1897/89/F Admit/Reg Date: 10/20/[address]: Dee Chand NP Location: [id number]/[id number] PCP: PcpMd KERMIT Cooper Date of Service: 10/21/20 Order (s): XR chest 1V CPT Code: 02216 Report Number: [id number] Reason for Exam: intubation EXAMINATION: XR chest 1V CLINICAL INDICATION: Female, 89 years year old with intubation COMPARISON: 1 day prior FINDINGS: Single view(s) of the chest submitted. The NG tube has been retracted with the tip about the diaphragm and should be advanced. ET tube remains in good position. The heart is normal in size. There is improved aeration of the lungs with residual patchy airspace opacities. There may be trace effusions. No new consolidation, pneumomediastinum or pneumothorax seen. Visualized skeleton is normal. IMPRESSION: 1. NG tube needs to be advanced. 2. Significant improved aeration of the lungs with no unfavorable changes over one day. Electronically signed by: Keren Manuel MD 10/21/2020 8:01 AM CDT Dictated By: Keren Manuel MD 10/21/20422 Signed By: Keren Manuel MD 10/21/20422 TD/TT: 10/21/20422 Tech: GPS02 cc: ANGELA; [id number]* PcpMd KERMIT Cooper; Dee Chand, NPXR chest [address]V [address] [address] Patient Name: Danay Manning Medical Record#: [id number] Address: Unknown City/State/Zip: [place] [address]: Raisa Junior MD Insurance: Self Pay /Age/Sex: 02/25/1897/89/F Adm it/Reg Date: 10/20/[address]: Dylon Davison MD Location: [place] [address] PCP: Md KERMIT Huffman Date of Service: 10/20/20 Order (s): XR chest 1V CPT Code: 69130 Report Number: [id number] for Exam: intubated EXAM: Portable chest one view. Location code:J9 HISTORY: Dyspnea COMPARISON: 10/20/2020 COMMENT: Interval placement of an ET tube at the level the clavicles and an NG tube overlying the left upper quadrant.. Diffuse bilateral patchy airspace disease. No large pleural effusion or pneumothorax. Cardiac silhouette is normal in size and contour. Visualized skeletal structures are unremarkable. IMPRESSION: Patchy bilateral airspace disease. Interval placement of ET and NG tubes.. Electronically signed by: Yared Avilez MD 10/20/2020 1:35 PM CDT Dictated By: Yared Avilez MD 10/20/201324 Signed By: Yared Avilez MD 10/20/201324 TD/TT: 10/20/201324 Tech: JAK15 cc: ANGELA; [id number]*Dylon Davison MD; PcpMd Kenneth MDCT head/brain wo con [facility] [address] [address] Patient Name: Danay Manning Medical Record#: [id number] Address: City/State/Zip: Attending Dr: Dylon Davison MD Phone: Insurance: Self Pay /Age/Sex: 02/25/1897/89/F Admit/Reg Date: 10/20/[address]: Dylon Davison MD Location: MED/ PCP: Date of Service: 10/20/20 Order (s): CT head/brain wo con CPT Code: 72062 Report Number: [id number] Reason for Exam:heat exposure, ams EXAMINATION: CT head/brain wo con CLIN ICAL INDICATION: Female, with heat exposure, ams TECHNIQUE: Axial CT images from the skullbase to the vertex without intravenous contrast. Coronal and sagittal reformatted images were created from the data set. One or more of the following dose reduction techniques were used: Automated exposure control, adjustment of the mA and/or kV according to patient size, and/or iterative reconstruction. COMPARISON: None FINDINGS: Intracranial: Senescent and chronic small vessel ischemic changes are present. No evidence of acute infarction, intracranial hemorrhage, mass or mass effect, or abnormal extra-axial fluid collection. The ventricles are normal in size, shape and position. Vascular: The larger dural venous sinuses are grossly normal. No significant atherosclerotic plaque. Sinuses: The visualized paranasal sinuses and mastoid air cells are predominantly clear. Bones: The osseous structures and orbits have no significant abnormalities. Soft tissue: No significant soft tissue abnormalities. IMPRESSION: Moderate atrophy and deep white matter chronic small vessel changes with otherwise no acute abnormality. Electronically signed by: David De Leon MD 10/20/2020 9:24 AM CDT Dictated By: David De Leon MD 10/20/20912 Signed By: David De Leon MD 10/20/20912 TD/TT: 10/20/20912 Tech: ES135 cc: [id number]* Dylon Davison, MDXR chest [address]V [address] [address] Patient Name: Danay Manning Medical Record#: [id number] Address: City/State/Zip: Attending Dr: Dylon Davison MD Phone: Insurance: Self Pay /Age/Sex: 02/25/1897/89/F Admit/Reg Date: 10/20/[address]: Dylon Davison MD Location: [facility]/ PCP: Date of Service: 10/20/20 Order (s): XR chest 1V CPT Code: 71 045 Report Number: [id number] Reason for Exam:ams Portable AP chest, 1 view Location Code: D4 CLINICAL HISTORY: Pneumonia with a mass COMPARISON: None COMMENT: The heart size is normal with scattered patchy bilateral infiltrates without change. Osseous structures are intact.No pneumothorax or effusion. IMPRESSION: Patchy bilateral bronchopneumonia. Electronically signed by: Get Mcleod MD 10/20/2020 9:12 AM CDT Dictated By: Get Mcleod MD 10/20/20 0854 Signed By: Get Tamayo MD 10/20/20 0854TD/TT: 10/20/20 0854 Tech: JAK15 cc: [email or web address]* Dylon Davison MD
--- NOTE | 2021-05-05 13:11 | RAD REPORT ---
EXAM DESCRIPTION: CT - Ct Stroke Brain Wo Cont - 05/05/2021 1:03 pm CLINICAL HISTORY: tia COMPARISON: none TECHNIQUE: Computed axial tomography of the head was obtained. All CT scans are performed using dose optimization technique as appropriate and may include automated exposure control or mA/KV adjustment according to patient size. FINDINGS: An intracranial bleed is not seen . The ventricles are normal in caliber. No extra-axial fluid collection is noted. Moderate to marked low-density within periventricular, deep and subcortical white matter Fluid within the sinuses/ mastoids is not seen. IMPRESSION: Moderate to marked low-density within periventricular, deep and subcortical white matter could be ischemic changes secondary to small vessel disease. A demyelinating process is a another co nsideration. If patient's symptoms persist MRI of the brain would be recommended. Alexander of the emergency room was notified at 1:05 p.m. May 05, 2021
--- NOTE | 2021-05-05 13:15 | RAD REPORT ---
EXAM DESCRIPTION: CT - C Spine Wo Con - 05/05/2021 1:03 pm CLINICAL HISTORY: Fall with neck pain COMPARISON: None. TECHNIQUE: Computed axial tomography of the cervical spine were obtained with sagittal and coronal r econstruction images generated and reviewed. All CT scans are performed using dose optimization technique as appropriate and may include automated exposure control or mA/KV adjustment according to patient size. FINDINGS: A cervical fracture is not seen. No dislocation Disc bulge C5-6 and C6-7 No high-grade stenosis seen IMPRESSION: A cervical fracture is not seen. Spondylosis If the patient continues have symptoms to suggest spinal cord/spinal canal pathology then MRI would b e recommended.
[2021-05-05 13:58] LABS: Hematocrit 30.7 % (36.0-45.0); MPV 9.1 fL (7.6-11.3); RBC Red Blood Cell Count 3.98 M/uL (3.86-4.86)
[2021-05-05 14:04] LABS: Absolute Lymphocytes (CBC) ND K/uL (0.7-4.9); Lymphocytes % ND % (15.3-44.8); Protime INR 1.23
[2021-05-05 14:08] LABS: BUN Blood Urea Nitrogen 13 mg/dL (7-18); Bicarbonate 28 mmol/L (21-32); Glucose Level 155 mg/dL (74-106); Sodium Level 137 mmol/L (136-145)
[2021-05-05 14:09] LABS: Magnesium 1.6 mg/dL (1.8-2.4)
[2021-05-05] MEDS ORDERED: LORazepam 2 MG/ML VIAL ONE (14:13)
--- NOTE | 2021-05-05 14:27 | RAD REPORT ---
EXAM DESCRIPTION: Haritha Single View05/05/2021 1:46 pm CLINICAL HISTORY: Chest pain COMPARISON: none FINDINGS: Moderate right and [id number] left pulmonary opacities. Small pleural effusions. Cardiomegaly IMPRESSION: These findings may represent pulmonary edema or pneumonia
[2021-05-05 14:36] LABS: Anisocytosis 1+; Blood Morphology Comment NOTED (NOT SEEN); Platelet Estimate ADEQ; Polychromasia 1+
--- NOTE | 2021-05-05 14:53 | EDPHYS ---
Physician Documentation [facility] Name: Ce Balbuena Age: 51 yrs Sex: Female : 1970 Arrival Date: 05/05/2021 Time: 12:43 Bed 4 Private MD: ED Physician Dennis Goodwin HPI: 05/05 14:31 This 51 yrs old Female presents to ER via EMS with complaints of TIA. jr8 14:31 The patient's problem is reported as weakness, in the right upper extremity, in the jr8 right lower extremity. Onset: The symptoms/episode began/occurred acutely, just prior to arrival, today. Duration: This was a single incident. Context: the episode(s) was witnessed, by the long-term staff, occurred at a long-term or assisted living facility, occurred while the patient was standing. The symptoms are alleviated by nothing. The symptoms are aggravated by nothing. Associated signs and symptoms: Pertinent positives: numbness. Severity of symptoms: At their worst the symptoms were moderate in the emergency department the symptoms have resolved. Patient's baseline: Neuro: alert and fully oriented, Motor: no deficits, Ambulation: walks without assistance, Speech: normal. The patient has not experienced similar symptoms in the past. The patient has not recently seen a physician. Patient stated that she fell at NH just prior to arrival after having right sided weakness. EMS stated that there was initial altered mentation and right sided deficit that has now completely resolved. Patient upon arrival alert and oriented to person, place, event . RN ORTHO: 13:03 LMP N/A - Post-menopause Historical: - Allergies: 13:03 Sulfa (Sulfonamide Antibiotics); jl7 - Home Meds: 13:03 trazodone 100 mg Oral tab 1 tab once daily [Active]; Lorazepam Oral [Active]; jl7 metoprolol tartrate 25 mg Oral tab 1 tab once daily [Active]; ipratropium bromide inhalation [Active]; duloxetine 30 mg oral CDRS [Active]; duloxetine 20 mg oral cpDR [Active]; fluconazole 100 mg Oral tab [Active]; - PMHx: 13:03 Anxiety; Chronic obstructive lung disease; Congestive heart failure; HIV positive; jl7 Depressive disorder; - Immunization history:: Adult Immunizations up to date. - Social history:: Smoking status: Patient reports the use of cigarette tobacco products, Patient/guardian denies using tobacco. ROS: 14:31 Eyes: Negative for injury, pain, redness, and discharge, ENT: Negative for injury, jr8 pain, and discharge, Neck: Negative for injury, pain, and swelling, Cardiovascular: Negative for chest pain, palpitations, and edema, Respiratory: Negative for shortness of breath, cough, wheezing, and pleuritic chest pain, Abdomen/GI: Negative for abdominal pain, nausea, vomiting, diarrhea, and constipation, Back: Negative for injury and pain, MS/Extremity: Negative for injury and deformity, Skin: Negative for injury, rash, and discoloration. 14:31 Neuro: Positive for altered mental status, numbness, weakness. Exam: 14:31 Radiologist reports: No acute findings jr8 14:31 Constitutional: This is a well developed, well nourished patient who is awake, alert, and in no acute distress. Head/Face: Normocephalic, atraumatic. Eyes: Pupils equal round and reactive to light, extra-ocular motions intact. Lids and lashes normal. Conjunctiva and sclera are non-icteric and not injected. Cornea within normal limits. Periorbital areas with no swelling, redness, or edema. ENT: Nares patent. No nasal discharge, no septal abnormalities noted. Tympanic membranes are normal and external auditory canals are clear. Oropharynx with no redness, swelling, or masses, exudates, or evidence of obstruction, uvula midline. Mucous membranes moist. Neck: Trachea midline, no thyromegaly or masses palpated, and no cervical lymphadenopathy. Supple, full range of motion without nuchal rigidity, or vertebral point tenderness. No Meningismus. Cardiovascular: Regular rate and rhythm with a normal S1 and S2. No gallops, murmurs, or rubs. Normal PMI, no JVD. No pulse deficits. Respiratory: Lungs have equal breath sounds bilaterally, clear to auscultation and percussion. No rales, rhonchi or wheezes noted. No increased work of breathing, no retractions or nasal flaring. Abdomen/GI: Soft, non-tender, with normal bowel sounds. No distension or tympany. No guarding or rebound. No evidence of tenderness throughout. Skin: Warm, dry with normal turgor. Normal color with no rashes, no lesions, and no evidence of cellulitis. MS/ Extremity: Pulses equal, no cyanosis. Neurovascular intact. Full, normal range of motion. 14:31 Neuro: Orientation: to person, situation, Mentation: able to follow commands, confused, Memory: immediate memory is intact, remote memory is impaired, recent memory is intact, Cranial nerves: CN I not tested, CN II- XII are normal as tested, visual valencia are intact. extraocular movements are intact, Facial palsy and sensory deficits are absent. Nystagmus is absent. Speech is slowed, Cerebellar function: normal finger to nose testing, heel to fletcher testing is normal, Motor: moves all fours, Sensation: numbness, that is mild, of the right arm and right leg, Gait: not tested. seizure activity, is not displayed by the patient, Abnormal movements: there are no abnormal movements. Vital Signs: 12:43 BP 103 / 80; Pulse 86; Resp 15; Temp 97.8; Pulse Ox 95% on R/A; Weight 50.8 kg; Height jl7 5 ft. 0 in. (152.40 cm); Pain 10/10; 12:45 BP 103 / 80; Pulse 86; Resp 20 S; Pulse Ox 95% 2 lpm ; jg9 13:15 BP 99 / 77; Pulse 84; Pulse Ox 97% on R/A; jg9 14:45 BP 93 / 74; Pulse 86; Resp 17 S; Pulse Ox 96% on 2 lpm NC; jg9 15:00 BP 93 / 74; Pulse 85; Resp 20 S; Pulse Ox 97% on 2 lpm NC; jg9 15:45 jg9 19:16 BP 101 / 81; Pulse 85; Resp 20; Pulse Ox 100% on 4 lpm NC; tw5 12:43 Body Mass Index 21.87 (50.80 kg, 152.40 cm) jl7 15:45 see paper charting jg9 NIH Stroke Scale Scores: 14:45 NIHSS Score: 4 jr8 [place] Coma Score: 12:45 Eye Response: to voice(3). Verbal Response: confused(4). Motor Response: obeys jg9 commands(6). Total: 13. 14:45 Eye Response: spontaneous(4). Verbal Response: confused(4). Motor Response: obeys jg9 commands(6). Total: 14. MDM: 12:57 Patient medically screened. jr8 14:31 Data reviewed: vital signs, nurses notes, lab test result(s), EKG, radiologic studies, jr8 CT scan, plain films. Data interpreted: Pulse oximetry: on room air is 95 %. Interpretation: normal. Counseling: I had a detailed discussion with the patient and/or guardian regarding: the historical points, exam findings, and any diagnostic results supporting the discharge/admit diagnosis, lab results, radiology results. 14:45 ED course: Patients speech with rapid improvement. No unilateral weakness present. Mild jr8 confusion and sensory deficit still present. Patient refused to do MRI due to anxiety. Will attempt to get CT angio and initiate tpa after discussing case with Dr. Gabriel. Will continue to Admit for CVA work up . 05/05 12:57 Order name: Basic Metabolic Panel; Complete Time: 14:30 [facility] 05/05 12:57 Order name: CBC with Diff; Complete Time: 14:47 [facility] 05/05 12:57 Order name: Magnesium; Complete Time: 14:30 8 05/05 12:57 Order name: Protime (+inr); Complete Time: 14:30 8 05/05 12:57 Order name: Ptt, Activated; Complete Time: 14:30 [facility] 05/05 13:13 Order name: Glucose, Ancillary Testing; Complete Time: 13:22 EDDE 05/05 12:57 Order name: CT Stroke Brain w/o Contrast; Complete Time: 13:22 8 05/05 12:57 Order name: Stroke CXR 1 View; Complete Time: 14:30 8 05/05 12:57 Order name: CT C Spine; Complete Time: 13:22 8 05/05 13:23 Order name: MRI - Brain Wo Cont 8 05/05 14:06 Order name: Manual Differential; Complete Time: 14:47 EDMS 05/05 14:44 Order name: CT Head Angio; Complete Time: 17:09 [facility] 05/05 16:58 Order name: SARS-COV-2 RT PCR (Document "Date of Onset" if Symptomatic) em1 05/05 16:58 Order name: SARS-COV-2 RT PCR EDDE 05/05 12:57 Order name: EKG; Complete Time: 12:58 05/05 12:57 Order name: Accucheck; Complete Time: 13:38 05/05 12:57 Order name: Cardiac monitoring; Complete Time: 13:38 05/05 12:57 Order name: EKG - Nurse/Tech; Complete Time: 13:38 05/05 12:57 Order name: IV Saline Lock; Complete Time: 13:48 05/05 12:57 Order name: Labs collected and sent; Complete Time: 13:41 05/05 12:57 Order name: NPO; Complete Time: 16:07 05/05 12:57 Order name: O2 Per Protocol; Complete Time: 13:41 05/05 12:57 Order name: O2 Sat Monitoring; Complete Time: 13:38 05/05 12:57 Order name: Stroke Swallow Screen; Complete Time: 13:38 05/05 14:44 Order name: CT Neck Angio; Complete Time: 15:42 Administered Medications: 14:18 Drug: Ativan (LORazepam) 0.5 mg Route: IVP; Site: right antecubital; jg9 16:07 Follow up: Response: No adverse reaction jg9 14:50 CANCELLED (Physician Discretion): PlaVIX (clopidogrel) 75 mg PO once 14:51 CANCELLED (Physician Discretion): Aspirin Chewable Tablet 81 mg PO once 15:43 Drug: foLIC Acid 1 mg Route: IVPB; Site: right antecubital; jg9 19:17 Follow up: Response: No adverse reaction; IV Status: Completed infusion; IV Intake: 24fhgp9 15:45 Drug: ACTIvase (alteplase) {Co-Signature: jh6 (Edna Nascimento RN).} Route: IV jg9 Thrombolytics; Rate: calculated rate; Infused Over: 60 mins; 16:58 Follow up: Urine output 43.4 ml; Response: No adverse reaction jg9 19:17 Follow up: Response: No adverse reaction; Told by previous shift, administration tw5 completed at 1645 Point of Care Testing: Blood Glucose: 12:50 Blood Glucose: 120 mg/dL; jg9 Ranges: Critical Glucose Levels:Adult <50 mg/dl or >400 mg/dl <40 mg/dl or >180 mg/dl Disposition Summary: 05/05/21 14:52 Hospitalization Ordered Hospitalization Status: Inpatient Admission jr8 Provider: Misha Dial Location: Intensive Care Unit jr8 Condition: Stable jr8 Problem: new jr8 Symptoms: have improved jr8 Bed/Room Type: Standard [facility] Room Assignment: 2-(05/05/21 19:22) mw Diagnosis - Cerebral infarction, unspecified jr8 Forms: - Medication Reconciliation Form jr8 - SBAR form jr8 NIH Stroke Scale - NIH Stroke Score Date: 05/05/2021 Time: 14:45 Total Score = 4 1a. Level of Consciousness (LOC) - 1(Not Alert) 1b. Level of Consciousness (LOC) (Month \\T\\ Age) - 1(One) 1c. LOC Commands (Open \\T\\ Closes Eyes/Refresh Technician) - 0(Both) 2. Best Gaze (Lateral Gaze Paresis) - 0(Normal) 3. Visual Field Loss - 0(No visual loss) 4. Facial Palsy - 0(Normal) 5a. Left Arm: Motor (10-second hold) - 0(No drift) 5b. Right Arm: Motor (10-second hold) - 0(No drift) 6a. Left Leg: Motor (5-second hold - always test supine) - 0(No drift) 6b. Right Leg: Motor (5-second hold - always test supine) - 0(No drift) 7. Limb Ataxia (finger/nose \\T\\ heel/fletcher - test with eyes open) - 0(Absent) 8. Sensory Loss (pinprick arms/legs/face) - 1(Mild to moderate loss) 9. Best Language: Aphasia (description/naming/reading) - 0(No aphasia) 10. Dysarthria (speech clarity - read or repeat words) - 1(Mild to Moderate) 11. Extinction and Inattention (visual/tactile/auditory/spatial/personal) - 0(No abnormality) Initials: [facility] Signatures: Dispatcher [employer] EDMS Nhi Sommer RN RN Alexander Holcomb PA PA jr8 Luc Oliveros RN RN jl7 Edna Obrien RN RN jg9 Alee Orozco tw5 Edna Nascimento RN jh6 Corrections: (The following items were deleted from the chart) 14:42 14:31 Neuro: Orientation: to person, place \\T\\ time. Mentation: able to follow [facility] commands, Memory: immediate memory is intact, remote memory is intact. recent memory is intact, Cranial nerves: CN I not tested, CN II- XII are normal as tested, visual valencia are intact. extraocular movements are intact, Facial palsy and sensory deficits are absent. Nystagmus is absent. Speech is slowed, Cerebellar function: normal finger to nose testing, heel to fletcher testing is normal, Motor: moves all fours, Sensation: numbness, that is mild, of the right arm and right leg, Gait: not tested. seizure activity, is not displayed by the patient, Abnormal movements: there are no abnormal movements, [facility] 14:45 14:31 NIHSS Score: 1 [place] [id number] 14:45 14:31 NIHSS Score: 3 [place] [address] 14:50 14:42 PlaVIX (clopidogrel) 75 mg PO once ordered. [place] [address] 14:51 14:42 Aspirin Chewable Tablet 81 mg PO once ordered. [place] [address] 14:52 14:45 ED course: Patients speech with rapid improvement. No focal deficits at [facility] this time. Mild confusion and sensory deficit still present. Patient refused to do MRI due to anxiety. Will attempt to get CT angio complete and initiate antiplatelet therapy. Admit for CVA work up . [facility] 14:53 14:45 ED course: Patients speech with rapid improvement. No unilateral weakness [facility] present. Mild confusion and sensory deficit still present. Patient refused to do MRI due to anxiety. Will attempt to get CT angio complete and initiate tpa after discussing case with Dr. Gabriel. Will continue to Admit for CVA work up . [facility] 19:22 14:52 [facility] mw
--- NOTE | 2021-05-05 14:53 | ER ---
Nurse's Notes [facility] Name: Ce Balbuena Age: 51 yrs Sex: Female : 1970 Arrival Date: 05/05/2021 Time: 12:43 Bed 4 Private MD: Diagnosis: Cerebral infarction, unspecified Presentation: 05/05 12:43 Chief complaint: EMS states: Pt was standing at the counter at [facility] and had a jl7 syncopal episode, on EMS arrival pt was A\\T\\Ox1 to self with right sided weakness and slurred speech, last known normal 1145. In route to ER symptoms resolved. 12:43 Method Of Arrival: EMS: [facility] jl7 12:43 Ebola Screen: No symptoms or risks identified at this time. Initial Sepsis Screen: Does jl7 the patient meet any 2 criteria? No. Patient's initial sepsis screen is negative. Does the patient have a suspected source of infection? No. Patient's initial sepsis screen is negative. Risk Assessment: Do you want to hurt yourself or someone else? Patient reports no desire to harm self or others. 12:43 Onset of symptoms was May 05, 2021 at 11:45. Care prior to arrival: Glucose check: jl7 163. Transition of care: patient was received from another setting of care (long-term care facility), [facility]. 12:43 Acuity: PARTH 2 jl7 19:43 Coronavirus screen: Vaccine status: unknown. tw5 Triage Assessment: 12:45 General: Appears uncomfortable, Behavior is flat, inappropriate for age. Pain: jg9 Complains of pain in back. Neuro: Level of Consciousness is awake, lethargic, Oriented to person, Deli Cutter Slicer are weak on left Moves all extremities. Gait is Speech is normal, Facial symmetry appears normal, Pupils are PERRLA, Intact Babinski Reports blurred vision Patient reports seeing two of everything. BUTT PRESSER: 13:03 LMP N/A - Post-menopause jl7 Historical: - Allergies: 13:03 Sulfa (Sulfonamide Antibiotics); jl7 - Home Meds: 13:03 trazodone 100 mg Oral tab 1 tab once daily [Active]; Lorazepam Oral [Active]; jl7 metoprolol tartrate 25 mg Oral tab 1 tab once daily [Active]; ipratropium bromide inhalation [Active]; duloxetine 30 mg oral CDRS [Active]; duloxetine 20 mg oral cpDR [Active]; fluconazole 100 mg Oral tab [Active]; - PMHx: 13:03 Anxiety; Chronic obstructive lung disease; Congestive heart failure; HIV positive; jl7 Depressive disorder; - Immunization history:: Adult Immunizations up to date. - Social history:: Smoking status: Patient reports the use of cigarette tobacco products, Patient/guardian denies using tobacco. Screenin:47 Abuse screen: Denies threats or abuse. Denies injuries from another. Nutritional jg9 screening: No deficits noted. Tuberculosis screening: No symptoms or risk factors identified. Fall Risk Fall in past 12 months (25 points). 14:55 Patient has been NPO before screening. The patient is alert, able to follow commands. jg9 The patient does not exhibit slurred or garbled speech The patient is not exhibiting difficulty speaking. The patient does not exhibit difficulty understanding words. The patient is able to swallow own secretions with no drooling or need for suction. Patient tolerated one teaspoon of water. No drooling, immediate coughing, gurgling, or clearing of the throat was noted. The patient tolerated 90mL of water. No drooling, immediate coughing, gurgling, or clearing of the throat was noted. The patient passed the bedside swallow screening. Oral medications may be given as ordered. Contact Physician for further diet orders. Assessment: 14:32 Reassessment: Patient states symptoms have improved. Neuro: Level of Consciousness is jg9 awake, alert, Oriented to person. Cardiovascular: Rhythm is sinus rhythm. 19:12 General: Appears in no apparent distress. comfortable, Behavior is drowsy, Patient tw5 appears to be sleeping at this time. Respiratory: Airway is patent Trachea midline Respiratory effort is even, unlabored. GI: Abdomen is non-distended. Vital Signs: 12:43 BP 103 / 80; Pulse 86; Resp 15; Temp 97.8; Pulse Ox 95% on R/A; Weight 50.8 kg; Height jl7 5 ft. 0 in. (152.40 cm); Pain 10/10; 12:45 BP 103 / 80; Pulse 86; Resp 20 S; Pulse Ox 95% 2 lpm ; jg9 13:15 BP 99 / 77; Pulse 84; Pulse Ox 97% on R/A; jg9 14:45 BP 93 / 74; Pulse 86; Resp 17 S; Pulse Ox 96% on 2 lpm NC; jg9 15:00 BP 93 / 74; Pulse 85; Resp 20 S; Pulse Ox 97% on 2 lpm NC; jg9 15:45 jg9 19:16 BP 101 / 81; Pulse 85; Resp 20; Pulse Ox 100% on 4 lpm NC; tw5 12:43 Body Mass Index 21.87 (50.80 kg, 152.40 cm) jl7 15:45 see paper charting jg9 [place] Coma Score: 12:45 Eye Response: to voice(3). Verbal Response: confused(4). Motor Response: obeys jg9 commands(6). Total: 13. 14:45 Eye Response: spontaneous(4). Verbal Response: confused(4). Motor Response: obeys jg9 commands(6). Total: 14. NIH Stroke Scale Scores: 14:45 NIHSS Score: 4 jr8 ED Course: 12:43 Patient arrived in ED. ds1 12:57 Alexander Diaz PA is PHCP. jr8 12:57 Dennis Goodwin MD is Attending Physician. jr8 13:03 CT Stroke Brain w/o Contrast In Process Unspecified. EDMS 13:03 CT C Spine In Process Unspecified. EDMS 13:03 Triage completed. jl7 13:03 Arm band placed on right wrist. jl7 13:41 Inserted saline lock: 20 gauge in right upper arm, using aseptic technique. Blood jh6 collected. 13:45 Edna Obrien, RN is Primary Nurse. jg9 13:45 Stroke CXR 1 View In Process Unspecified. EDMS 14:18 MRI - Brain Wo Cont In Process Unspecified. EDMS 14:33 Patient has correct armband on for positive identification. Bed in low position. Call jg9 light in reach. Side rails up X 1. 14:34 Resting quietly. Appears to be sleeping. Patient moved back from MRI. jg9 14:52 Misha Dial is Hospitalizing Provider. jr8 15:15 CT Head Angio In Process Unspecified. EDMS 15:15 CT Neck Angio In Process Unspecified. EDMS 19:12 Primary Nurse role handed off by Edna Obrien, AMBROCIO tw5 19:12 Ernesto Alee is Primary Nurse. tw5 19:16 laboratory monitor on. Pulse ox on. NIBP on. Door closed. Noise minimized. Lights dimmed. tw5 Moved to private room. Warm blanket given. Pillow given. Verbal reassurance given. 19:16 Oxygen administration via nasal cannula \\T\\ 4L/min. tw5 19:21 SARS-COV-2 RT PCR (Document "Date of Onset" if Symptomatic) Sent. tw5 19:43 No provider procedures requiring assistance completed. Patient admitted, IV remains in tw5 place. Administered Medications: 14:18 Drug: Ativan (LORazepam) 0.5 mg Route: IVP; Site: right antecubital; jg9 16:07 Follow up: Response: No adverse reaction j9 14:50 CANCELLED (Physician Discretion): PlaVIX (clopidogrel) 75 mg PO once jr8 14:51 CANCELLED (Physician Discretion): Aspirin Chewable Tablet 81 mg PO once jr8 15:43 Drug: foLIC Acid 1 mg Route: IVPB; Site: right antecubital; jg9 19:17 Follow up: Response: No adverse reaction; IV Status: Completed infusion; IV Intake: 00mdxn4 15:45 Drug: ACTIvase (alteplase) {Co-Signature: jh6 (Edna Nascimento RN).} Route: IV jg9 Thrombolytics; Rate: calculated rate; Infused Over: 60 mins; 16:58 Follow up: Urine output 43.4 ml; Response: No adverse reaction j9 19:17 Follow up: Response: No adverse reaction; Told by previous shift, administration tw5 completed at 1645 Point of Care Testing: Blood Glucose: 12:50 Blood Glucose: 120 mg/dL; jg9 Ranges: Intake: 19:17 IV: 50ml; Total: 50ml. tw5 Output: 16:58 Urine: 43ml; Total: 43ml. jg9 Outcome: 14:52 Decision to Hospitalize by Provider. jr8 19:43 Admitted to ICU Report called to Report called to Misha ALBRECHT tw5 19:43 Condition: improved 19:43 Instructed on the need for admit. 19:48 Patient left the ED. tw NIH Stroke Scale - NIH Stroke Score Date: 05/05/2021 Time: 14:45 Total Score = 4 1a. Level of Consciousness (LOC) - 1(Not Alert) 1b. Level of Consciousness (LOC) (Month \\T\\ Age) - 1(One) 1c. LOC Commands (Open \\T\\ Closes Eyes/Classification Officer) - 0(Both) 2. Best Gaze (Lateral Gaze Paresis) - 0(Normal) 3. Visual Field Loss - 0(No visual loss) 4. Facial Palsy - 0(Normal) 5a. Left Arm: Motor (10-second hold) - 0(No drift) 5b. Right Arm: Motor (10-second hold) - 0(No drift) 6a. Left Leg: Motor (5-second hold - always test supine) - 0(No drift) 6b. Right Leg: Motor (5-second hold - always test supine) - 0(No drift) 7. Limb Ataxia (finger/nose \\T\\ heel/fletcher - test with eyes open) - 0(Absent) 8. Sensory Loss (pinprick arms/legs/face) - 1(Mild to moderate loss) 9. Best Language: Aphasia (description/naming/reading) - 0(No aphasia) 10. Dysarthria (speech clarity - read or repeat words) - 1(Mild to Moderate) 11. Extinction and Inattention (visual/tactile/auditory/spatial/personal) - 0(No abnormality) Initials: jessy Signatures: Dispatcher [employer] [facility] Edith Chacon ds1 Alexander Diaz PA PA jr8 Luc Oliveros RN RN jl7 Alee Orozco tw5 Edna Nascimento RN RN jh6 Edna Obrien RN RN jg9 Edna Nascimento RN jh6 Corrections: (The following items were deleted from the chart) 19:43 19:43 Patient transferred, IV remains in place. tw5 tw5
[2021-05-05] MEDS ORDERED: FOLIC ACID 5 MG/ML VIAL ONE (15:03)
[2021-05-05] MEDS ORDERED: ALTEPLASE 100 ML IV ONE (15:04)
--- NOTE | 2021-05-05 15:31 | RAD REPORT ---
EXAM DESCRIPTION: Lara Angio05/05/2021 3:15 pm CLINICAL HISTORY: tia COMPARISON: None TECHNIQUE: 50 cc Isovue 370 was administered intravenously. 3D MIP reconstruction performed All CT scans are performed using dose optimization technique as appropriate and may include automated exposure control or mA/KV adjustment according to patient size. FINDINGS: Mild plaque within the right and left common, right and left external and right and left i nternal carotid arteries. The internal carotid arteries are tortuous. The vertebral arteries do not demonstrate stenosis. No dissection seen IMPRESSION: Mild plaque within carotid arteries NASCET criteria used. Mild 0-49% stenosis Moderate 50-69% stenosis Severe 70-99% stenosis
--- NOTE | 2021-05-05 17:01 | RAD REPORT ---
EXAM DESCRIPTION: CTHead angio05/05/2021 3:15 pm CLINICAL HISTORY: TIA COMPARISON: None TECHNIQUE: CT angiogram of the head was obtained. 3D MIPS reconstruction performed. All CT scans are performed using dose optimization technique as appropriate and may include automated exposure control or mA/KV adjustment according to patient size. FINDINGS: The basilar, internal carotid, anterior cerebral, middle cerebral and posterior cerebral a rteries are normal caliber. An aneurysm is not seen. A significant stenosis is not noted. Prominent vessels are present within the orbits bilaterally extending posterior to anteromedial. No a bnormality of the sinuses or cavernous sinus seen. IMPRESSION: Prominent vessels are present within the orbits bilaterally extending posterior to anter omedial. 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 This may be an idiopathic findin g for the patient. Other considerations include grave's disease and carotid cavernous and dural jamarcus nous fistula Otherwise, unremarkable exam.
--- NOTE | 2021-05-05 17:03 | P.HP ---
Certification for Inpatient Patient admitted to: Inpatient With expected LOS: >2 Midnights Practitioner: I am a practitioner with admitting privileges, knowledge of patient current condition, hospital course, and medical plan of care. Services: Services provided to patient in accordance with Admission requirements found in Title 42 Section 412.3 of the Code of Federal Regulations Patient History Date of Service: 05/05/21 Reason for admission: Right-sided weakness History of Present Illness: 51-year-old woman skilled nursing resident with a history of HIV, depression, COPD and heart failure who was transferred from skilled nursing to the emergency department due to sudden onset right-sided weakness which caused the patient to fall from the standing position. Patient suspected to have had a stroke. Stroke protocol was called in the ED. head CT negative for acute stroke, CTA head and neck unremarkable. Neurology-Dr. Gabriel was contacted who recommended t-PA. MRI also ordered but patient would not lay still for MRI and it was discontinued. Patient neurologic symptoms resolved in the ED, no longer has any limb weakness or speech problem or facial deviation but she was confused during my assessment. Patient is hospitalized for further management. - Past Medical/Surgical History -: HIV -: Depression -: COPD -: Heart failure - Social History Alcohol use: No CD- Drugs: No Place of Residence: [facility] Review of Systems is unable to be obtained Physical Examination - Physical Exam General: In no apparent distress, Confused HEENT: Atraumatic, Normocephalic, PERRLA, Mucous membr. moist/pink, EOMI, Sclerae nonicteric Neck: Supple, JVD not distended Respiratory: Clear to auscultation bilaterally, Normal air movement Cardiovascular: No edema, Regular rate/rhythm, Normal S1 S2, No murmurs Capillary refill: <2 Seconds Gastrointestinal: Normal bowel sounds, Soft and benign, Non-distended, No tenderness Musculoskeletal: No swelling, No tenderness Integumentary: No rashes, No erythema Neurological: Normal speech, Normal strength at 5/5 x4 extr, Cranial nerves 3-12 intact Lymphatics: No axilla or inguinal lymphadenopathy - Studies Laboratory Data (last 24 hrs) 05/05/21 13:35: PT 13.6 H, INR 1.23, APTT 21.5 L 05/05/21 13:35: WBC 7.30, Hgb 9.5 L, Hct 30.7 L, Plt Count 232 05/05/21 13:35: Sodium 137, Potassium 4.0, BUN 13, Creatinine 0.46 L, Glucose 155 H, Magnesium 1.6 L Assessment and Plan - Problems (Diagnosis) (1) Acute CVA (cerebrovascular accident) Current Visit: Yes Status: Acute (2) HIV (human immunodeficiency virus infection) Current Visit: Yes Status: Acute (3) COPD (chronic obstructive pulmonary disease) Current Visit: Yes Status: Acute - Plan Admit patient to the ICU for post t-PA monitoring. No anticoagulation for 24 hours after which patient will be placed on aspirin and Plavix. Permissive hypertension. Neurochecks post tPA protocol. Check lipid profile Start statins Consult to neurology. Reconcile and continue other home medications for HIV, COPD. Monitor CBC and electrolytes. - Advance Directives Does patient have a Living Will: No Does patient have a Durable POA for Healthcare: No
[2021-05-05] MEDS: NA CHLORIDE 0.9% 1,000 ML IV SCH (20:24)
[2021-05-05] MEDS ORDERED: ACETAMINOPHEN 500 MG TAB PO PRN (20:24)
[2021-05-05] MEDS ORDERED: LORazepam 2 MG/ML VIAL IV PRN (20:24)
[2021-05-05] MEDS ORDERED: ONDANSETRON 4 MG/2 ML VIAL IV PRN (20:24)
[2021-05-05] MEDS ORDERED: ATORVASTATIN 20 MG TAB PO SCH (21:00)
[2021-05-05 23:12] VITALS: BMI 20.2
[2021-05-06 05:31] LABS: Protime INR 1.13
[2021-05-06 05:38] LABS: Hematocrit 30.6 % (36.0-45.0); MPV 8.9 fL (7.6-11.3); RBC Red Blood Cell Count 3.94 M/uL (3.86-4.86)
[2021-05-06 06:03] LABS: Albumin 2.5 g/dL (3.4-5.0); Alkaline Phosphatase 218 U/L (45-117); BUN Blood Urea Nitrogen 8 mg/dL (7-18); Bicarbonate 30 mmol/L (21-32); Bilirubin Total 0.6 mg/dL (0.2-1.0); Glucose Level 94 mg/dL (74-106); HDL Cholesterol 16 mg/dL (40-60); LDL Cholesterol, Calculated 115 (<130); Magnesium 1.6 mg/dL (1.8-2.4); Phosphorus 2.6 mg/dL (2.5-4.9); Potassium 3.2 mmol/L (3.5-5.1); Protein, Total 6.8 g/dL (6.4-8.2); Sodium Level 140 mmol/L (136-145); Thyroid Stimulating Hormone 0.749 uIU/mL (0.360-3.740)
[2021-05-06 06:04] LABS: ALT/SGPT 1738 U/L (12-78); AST/SGOT 800 U/L (15-37)
[2021-05-06] MEDS: NA CHLORIDE 0.9% 1,000 ML IV SCH (09:21)
[2021-05-06] MEDS ORDERED: MAGNESIUM SULFATE 1 gm IVPB 1 GM/100 ML BAG IV ONE (09:54)
[2021-05-06 11:16] LABS: Platelet Estimate ADEQ
[2021-05-06 11:21] LABS: Anisocytosis 2+; Blood Morphology Comment NOTED (NOT SEEN); Hypochromasia 2+; Platelets, Giant PRESENT; Poikilocytosis 1+; Polychromasia SLIGHT; Target Cells 1+
[2021-05-06] MEDS: KCL 20 MEQ/100 mL IVPB 20 MEQ/100 ML BAG IV SCH ×2 (12:03→13:00)
[2021-05-06] MEDS ORDERED: POTASSIUM 25 MEQ EFFERV TAB PO ONE (14:18)
--- NOTE | 2021-05-06 18:11 | RAD REPORT ---
EXAM DESCRIPTION: CT - Ct Stroke Brain Wo Cont - 05/06/2021 5:47 pm CLINICAL HISTORY: for repeat CT 24 hrs post TPA CVA, status post tPA COMPARISON: Head angio dated 05/05/2021; Ct Stroke Brain Wo Cont dated 05/05/2021 TECHNIQUE: All CT scans are performed using dose optimization technique as appropriate and may inclu de automated exposure control or mA/KV adjustment according to patient size. FINDINGS: No intracranial hemorrhage, hydrocephalus or extra-axial fluid collection.Moderate general ized brain atrophy is present with moderate periventricular and deep white matter chronic microvascul ar ischemic changes.No areas of brain edema or evidence of midline shift. The paranasal sinuses and mastoids are clear. The calvarium is intact. IMPRESSION: No acute intracranial abnormality.
--- NOTE | 2021-05-06 18:13 | P.PN ---
Subjective Date of Service: 05/06/21 Chief Complaint: Right-sided weakness 24 hours status post t-PA. Right-sided weakness resolved. No problem with speech or swallowing. She is tolerating diet. Physical Examination - Vital Signs Temperature: 98.4 F Blood Pressure: 114/95 Pulse: 99 Respirations: 28 Pulse Ox (%): 99 - Physical Exam General: Alert, In no apparent distress HEENT: PERRLA, Mucous membr. moist/pink, Sclerae nonicteric Neck: Supple, JVD not distended Respiratory: Clear to auscultation bilaterally, Normal air movement Cardiovascular: No edema, Regular rate/rhythm, Normal S1 S2 Capillary refill: <2 Seconds Gastrointestinal: Normal bowel sounds, Soft and benign, Non-distended, No tenderness Musculoskeletal: No swelling, No tenderness Integumentary: No erythema, No cyanosis Neurological: Normal speech, Normal strength at 5/5 x4 extr, Cranial nerves 3-12 intact Assessment And Plan - Current Problems (Diagnosis) (1) Acute CVA (cerebrovascular accident) Current Visit: Yes Status: Acute (2) HIV (human immunodeficiency virus infection) Current Visit: Yes Status: Acute (3) COPD (chronic obstructive pulmonary disease) Current Visit: Yes Status: Acute - Plan Check CT head 24 hours post TPA MRI of the brain shows no acute stroke. Case discussed with Dr. Gabriel who recommend only aspirin. Hold statins given elevated liver enzymes. Check lipid profile Neurology input appreciated Continue other home medications. Monitor CBC and electrolytes. Transfer out of the ICU to the medical floor after CT Head.
[2021-05-06 21:32] LABS: Magnesium 1.8 mg/dL (1.8-2.4); Potassium 3.6 mmol/L (3.5-5.1)
[2021-05-06 22:55] LABS: Barbiturates NEGATIVE (NEGATIVE); Benzodiazepines NEGATIVE (NEGATIVE); Cocaine NEGATIVE (NEGATIVE); METHAMPHETAM NEGATIVE (NEGATIVE); Methadone NEGATIVE (NEGATIVE); Opiates NEGATIVE (NEGATIVE); Phencyclidine NEGATIVE (NEGATIVE); THC Cannibis NEGATIVE (NEGATIVE)
[2021-05-07] MEDS ORDERED: NA CHLORIDE 0.9% 1,000 ML ONE (04:46)
[2021-05-07] MEDS ORDERED: ACETAMINOPHEN 500 MG TAB ONE (04:58)
[2021-05-07] MEDS: NA CHLORIDE 0.9% 1,000 ML IV SCH (04:59)
[2021-05-07 06:45] LABS: BUN Blood Urea Nitrogen 4 mg/dL (7-18); Bicarbonate 30 mmol/L (21-32); Glucose Level 106 mg/dL (74-106); Sodium Level 137 mmol/L (136-145)
[2021-05-07 06:50] LABS: Magnesium 1.8 mg/dL (1.8-2.4); Potassium 3.6 mmol/L (3.5-5.1)
[2021-05-07] MEDS ORDERED: MAGNESIUM SULFATE 1 gm IVPB 1 GM/100 ML BAG IV ONE (07:30)
[2021-05-07] MEDS ORDERED: POTASSIUM CL SA 10 MEQ TAB PO ONE (07:30)
[2021-05-07] MEDS ORDERED: ONDANSETRON 4 MG/2 ML VIAL IV PRN (07:34)
[2021-05-07] MEDS ORDERED: ACETAMINOPHEN 500 MG TAB PO PRN (07:34)
[2021-05-07] MEDS ORDERED: LORazepam 2 MG/ML VIAL IV PRN (07:34)
[2021-05-07] MEDS ORDERED: NA CHLORIDE 0.9% 1,000 ML IV SCH (08:00)
--- NOTE | 2021-05-07 10:13 | EKG ---
Test Date: 2021-05-05 Test Time: 13:04:07 Finger Grip Machine Operator: ERIBERTO MEASUREMENT RESULTS: Intervals: Rate: 89 FL: 122 QRSD: 92 QT: 446 QTc: 542 [place]: P: 63 FL: 122 QRS: 2 T: -6 INTERPRETIVE STATEMENTS: Sinus rhythm with premature atrial complexes Nonspecific T wave abnormality Prolonged QT Abnormal ECG No previous ECG available for comparison Electronically Signed On 05-07-21 10:11:52 CDT by Tra Camargo
[2021-05-07 12:41] LABS: ALT/SGPT 1133 U/L (12-78); AST/SGOT 349 U/L (15-37)
[2021-05-07] MEDS ORDERED: TRAZODONE 50 MG TABLET PO PRN (14:04)
[2021-05-07] MEDS ORDERED: HOME MED 1 EA UNK (Ipratropium Bromide [Atrovent Hfa] 12.9 GM Hfa.Aer.Ad) IH PRN (14:04)
[2021-05-07] MEDS ORDERED: IBUPROFEN 600 MG TAB PO PRN (14:04)
--- NOTE | 2021-05-07 15:24 | P.PN ---
Subjective Date of Service: 05/07/21 Chief Complaint: Right-sided weakness Patient with elevated LFTs. She has no neurologic deficit. She is tolerating diet. Physical Examination - Vital Signs Temperature: 98.8 F Blood Pressure: 110/77 Pulse: 103 Respirations: 20 Pulse Ox (%): 93 - Physical Exam General: In no apparent distress, Confused, Other Neck: JVD not distended Respiratory: Clear to auscultation bilaterally, Normal air movement Cardiovascular: No edema, Regular rate/rhythm, Normal S1 S2 Gastrointestinal: Soft and benign, Non-distended Musculoskeletal: No swelling Integumentary: No rashes Neurological: Normal strength at 5/5 x4 extr, Cranial nerves 3-12 intact Assessment And Plan - Current Problems (Diagnosis) (1) Acute CVA (cerebrovascular accident) Current Visit: Yes Status: Acute (2) HIV (human immunodeficiency virus infection) Current Visit: Yes Status: Acute (3) COPD (chronic obstructive pulmonary disease) Current Visit: Yes Status: Acute - Plan CT head post TPA is negative MRI of the brain shows no acute stroke. Continue aspirin No statins given elevated liver enzymes. Repeat LFT trending down. Obtain CT abdomen and pelvis to further evaluate elevated LFTs Neurology input appreciated Continue other home medications. Continue HAART Monitor CBC and electrolytes.
[2021-05-07] MEDS: NYSTATIN 500,000 UNIT/5 ML UDC PO SCH ×2 (17:34→21:30)
[2021-05-07] MEDS: BUDESONIDE 0.5 MG/2 ML NEB IH SCH (20:00)
--- NOTE | 2021-05-07 20:13 | RAD REPORT ---
EXAM DESCRIPTION: CTAbdomen Pelvis W Contrast - 05/07/2021 8:01 pm CLINICAL HISTORY: Elevated LFT COMPARISON: <Comparisons> TECHNIQUE: CT of the abdomen and pelvis was performed. All CT scans are performed using dose optimization technique as appropriate and may include automated exposure control or mA/KV adjustment according to patient size. FINDINGS: Lower chest: Small bilateral effusions . Nodular airspace disease in the lower lungs bilat erally. Coronary artery stents. Mild cardiomegaly. Liver: Small hypoenhancing lesion in the right hepatic lobe measuring 7 millimeters is too small to c haracterize but statistically benign. Biliary: No biliary ductal dilatation. Stomach: No significant focal abnormality. Duodenum: No significant focal abnormality. Pancreas: No significant abnormality. Spleen: No significant abnormality. Adrenal: No suspicious lesions. Kidney/ureter: No hydronephrosis. No renal calculi. Retroperitoneum: No retroperitoneal adenopathy. Vascular: No aneurysm. Bowel: No significant focal abnormality. Peritoneum: Small volume of ascites. Bladder: Grossly unremarkable. Reproductive: Nonspecific fluid is present within the vagina. Bones: Age-indeterminate T7 compression fracture. Other: n/a IMPRESSION: No acute intra-abdominal or pelvic finding. Specifically, no findings to explain elevate d liver function tests. No biliary ductal dilatation is identified. Small volume of ascites which is nonspecific. Basilar airspace disease may represent pneumonia/ pneumonitis, possibly secondary to aspiration. Fluid within the vagina of uncertain etiology.
[2021-05-07] MEDS: ATOVAQUONE 750 MG/5 ML PO SCH (21:00)
[2021-05-07] MEDS ORDERED: [UNRECOGNIZED DRUG - OTHER] PO SCH (21:00)
[2021-05-07] MEDS ORDERED: LAMIVUDI PO SCH (21:00)
[2021-05-07] MEDS ORDERED: DOLUTEGRAVIR PO SCH (21:00)
[2021-05-07] MEDS ORDERED: ABACAVIR PO SCH (21:00)
[2021-05-07] MEDS: CALCIUM CARBONATE CHEW 500MG TAB PO SCH (21:31)
[2021-05-07] MEDS: DULOXETINE 20 MG CAP PO SCH (21:31)
[2021-05-07] MEDS: LORAZEPAM 0.5 MG TABLET PO SCH (21:31)
[2021-05-07] MEDS: GABAPENTIN 300 MG CAP PO SCH (21:31)
[2021-05-07] MEDS: DULOXETINE 30 MG CAP PO SCH (21:35)
[2021-05-08] MEDS ORDERED: ALBUTEROL 2.5 MG/3 ML NEB SOL NEB PRN (03:47)
--- NOTE | 2021-05-08 08:39 | RAD REPORT ---
EXAM DESCRIPTION: RAD - Chest Pa And Lat (2 Views) - 05/08/2021 6:47 am CLINICAL HISTORY: new cough, shob Chest pain. COMPARISON: Chest Single View dated 05/05/2021 FINDINGS: Bilateral pulmonary opacities are again seen, with increased infiltrate is noted in both u pper lungs likely representing pneumonia. The heart is mildly enlarged in size. Bilateral pleural eff usions are present, small to moderate in size. IMPRESSION: Mild worsening in upper lobe infiltrates are present likely representing pneumonia.
--- NOTE | 2021-05-08 08:50 | RAD REPORT ---
EXAM DESCRIPTION: MRI - Brain W/Wo Cont - 05/08/2021 8:10 am CLINICAL HISTORY: acute CVA Headache, drowsiness, CVA COMPARISON: MRA Head Wo Cont dated 05/08/2021 TECHNIQUE: Multi-sequence, multiplanar MR imaging of the brain was performed with contrast. FINDINGS: Motion artifact is present, limiting quality of the study. No intracranial hemorrhage, hydrocephalus, or extra-axial fluid collection.Extensive T2 and FLAIR hyp erintensity in the periventricular and deep white matter is present. No edema or shift of midline str uctures. No intracranial mass. DWI is negative for acute CVA. The midline structures are normally formed. Mastoid air cells and paranasal sinuses are clear. Post-contrast images show no abnormal enhancement to suggest tumor or infection. IMPRESSION: Negative for acute CVA or other acute intracranial process. Advanced for age T2 and FLAIR hyperintensity in the periventricular and deep white matter.
--- NOTE | 2021-05-08 08:52 | RAD REPORT ---
EXAM DESCRIPTION: MRI - MRA Head Wo Cont - 05/08/2021 8:10 am CLINICAL HISTORY: acute CVA CVA COMPARISON: Ct Stroke Brain Wo Cont dated 05/06/2021 FINDINGS: 3D noncontrast [id number] MR angiography of the [place] was performed. No aneurysm, flow-limiting stenosis or vascular malformation is seen. Forward flow seen in codominant vertebral arteries. The visualized dural venous sinuses appear patent. IMPRESSION: No significant flow abnormality of the [place] is identified.
--- NOTE | 2021-05-08 08:53 | RAD REPORT ---
EXAM DESCRIPTION: MRI - MRA Neck W/Wo Cont - 05/08/2021 8:10 am CLINICAL HISTORY: acute CVA Headache, drowsiness COMPARISON: No comparisons FINDINGS: Contrast enhance 2D [id number] MR angiography of the neck vessels was performed. A left aortic arch is present. Subclavian and common carotid artery show no significant flow abnormality. Mild narrowing of both carotid bulbs is seen without high-grade stenosis evident. Codominant antegrad e flow is seen in the vertebral arteries. IMPRESSION: No significant flow abnormality of the neck vessels.
[2021-05-08] MEDS: [UNRECOGNIZED DRUG - OTHER] PO SCH (08:58)
[2021-05-08] MEDS: DOLUTEGRAVIR PO SCH ×3 (08:58→21:00)
[2021-05-08] MEDS: ABACAVIR PO SCH ×3 (08:58→21:00)
[2021-05-08] MEDS: LAMIVUDI PO SCH ×3 (08:58→21:00)
[2021-05-08] MEDS: VITAMIN D 5,000 UNIT CAP PO SCH (08:59)
[2021-05-08] MEDS: ATOVAQUONE 750 MG/5 ML PO SCH ×2 (08:59→21:00)
[2021-05-08] MEDS: predniSONE 20 MG TAB PO SCH (08:59)
[2021-05-08] MEDS: PANTOPRAZOLE 40MG TABLET PO SCH (08:59)
[2021-05-08] MEDS: GABAPENTIN 300 MG CAP PO SCH ×3 (08:59→21:09)
[2021-05-08] MEDS: PRIMAQUINE PHOSPHATE 26.3 MG PO SCH (08:59)
[2021-05-08] MEDS: OLANZapine 2.5 MG TAB PO SCH (09:00)
[2021-05-08] MEDS: DOCUSATE NA 100 MG CAP PO SCH (09:00)
[2021-05-08] MEDS: DULOXETINE 30 MG CAP PO SCH ×2 (09:00→21:09)
[2021-05-08] MEDS: NYSTATIN 500,000 UNIT/5 ML UDC PO SCH ×4 (09:00→21:09)
[2021-05-08] MEDS: FLUCONAZOLE 100 MG TAB PO SCH (09:00)
[2021-05-08] MEDS: MULTIVIT W/ MINERAL TAB PO SCH (09:00)
[2021-05-08] MEDS: CALCIUM CARBONATE CHEW 500MG TAB PO SCH ×2 (09:00→21:09)
[2021-05-08] MEDS: DULOXETINE 20 MG CAP PO SCH ×2 (09:00→21:09)
[2021-05-08] MEDS: LORAZEPAM 0.5 MG TABLET PO SCH ×2 (09:00→21:09)
[2021-05-08 09:49] LABS: BUN Blood Urea Nitrogen 3 mg/dL (7-18); Bicarbonate 34 mmol/L (21-32); Glucose Level 130 mg/dL (74-106); Magnesium 1.9 mg/dL (1.8-2.4); Potassium 3.4 mmol/L (3.5-5.1); Sodium Level 139 mmol/L (136-145)
[2021-05-08 10:03] LABS: Albumin 2.7 g/dL (3.4-5.0); Bilirubin Direct 0.3 mg/dL (0-0.2); Bilirubin Total 0.8 mg/dL (0.2-1.0); Protein, Total 7.3 g/dL (6.4-8.2)
[2021-05-08] MEDS ORDERED: POTASSIUM CL SA 10 MEQ TAB PO ONE (12:00)
--- NOTE | 2021-05-08 13:54 | ECHO ---
HEIGHT: 5 ft 0 in WEIGHT: 103 lb 14.4 oz DATE OF STUDY: 05/08/[address]: emmett mejía 2-DIMENSIONAL: YES M.MODE: YES DOPPLER: YES COLOR FLOW: YES TDS: NO PORTABLE: NO DEFINITY: NO BUBBLE STUDY: NO DIAGNOSIS: STROKE CARDIAC HISTORY: CATHERIZATION:YES SURGERY: NO PROSTHETIC VALVE: NO PACEMAKER: NO MEASUREMENTS (cm) DIASTOLIC (NORMALS) SYSTOLIC (NORMALS) IVSd 0.8 (0.6-1.2) LA Diam 2.9 (1.9-4.0) LVEF 50-55% LVIDd 5.3 (3.5-5.7) LVIDs 4.1 (2.0-3.5) %FS 21% LVPWd 0.9 (0.6-1.2) Ao Diam 2.5 (2.0-3.7) 2 DIMENSIONAL ASSESSMENT: RIGHT ATRIUM: NORMAL LEFT ATRIUM: ENLARGED RIGHT VENTRICLE: NORMAL LEFT VENTRICLE: TRICUSPID VALVE: MITRAL VALVE: PULMONIC VALVE: NORMAL AORTIC VALVE: PERICARDIAL EFFUSION: NONE AORTIC ROOT: NORMAL LEFT VENTRICULAR WALL MOTION: NORMAL DOPPLER/COLOR FLOW: SEE BELOW. COMMENTS: LOW NORMAL LEFT VENTRICULAR EJECTION FRACTION OF 50%. LEFT VENTRICULAR QUESTIONABLE NONCOMPACTION, RECOMMEND CONTRAST ECHO. LIKELY SEVERE MITRAL REGURGITATION, RECOMMEND KATHARINE. MILD TRICUSPID AND AORTIC REGURGITATION. LEFT ATRIAL ENLARGEMENT. TECHNOLOGIST: Cristobal JOSÉ
--- NOTE | 2021-05-08 17:25 | P.PN ---
Subjective Date of Service: 05/08/21 Chief Complaint: Right-sided weakness Patient has no complaint and wants to go home. MRI of the brain, MRA head and neck done were unremarkable. She has no neurologic deficit. Liver enzymes elevated but trending down. Physical Examination - Vital Signs Temperature: 99.3 F Blood Pressure: 108/74 Pulse: 125 Respirations: 18 Pulse Ox (%): 94 - Physical Exam General: Alert, In no apparent distress, Oriented x3 HEENT: Mucous membr. moist/pink Neck: Supple, JVD not distended Respiratory: Clear to auscultation bilaterally, Normal air movement Cardiovascular: No edema, Regular rate/rhythm, Normal S1 S2 Gastrointestinal: Normal bowel sounds, Soft and benign, Non-distended, No tenderness Musculoskeletal: No swelling Integumentary: No rashes Neurological: Normal strength at 5/5 x4 extr Assessment And Plan - Current Problems (Diagnosis) (1) HIV (human immunodeficiency virus infection) Current Visit: Yes Status: Acute (2) COPD (chronic obstructive pulmonary disease) Current Visit: Yes Status: Acute (3) TIA (transient ischemic attack) Current Visit: Yes Status: Acute (4) Acute hepatitis Current Visit: Yes Status: Acute - Plan CT head post TPA is negative MRI of the brain shows no acute stroke. MRA head and neck unremarkable. Continue aspirin No statins given elevated liver enzymes. LFT trending down but still significantly elevated. Patient is on multiple medications including her HAART, Atovaquone, Fluconazole which can cause liver enzymes elevations. I will try to contact her infectious disease specialist Dr. Arlin Alanis [facility] to discuss her HAART for possible medication changes. Nurse called Kentrell santiago to inquire about her HAART. Kentrell santiago mentioned patient only filled her HAART for 1 month and currently noncompliant with the medication. CT abdomen and pelvis unremarkable and shows no acute changes. Neurology input appreciated Continue other home medications. Monitor CBC and electrolytes. Monitor LFTs. Consult infectious disease and GI.
[2021-05-08] MEDS: BUDESONIDE 0.5 MG/2 ML NEB IH SCH (20:00)
--- NOTE | 2021-05-08 23:09 | CON ---
Reason For Consultation: Possible stroke. The patient did receive tPA. History Of Present Illness: Ms. Wells is a 51-year-old right-handed patient with anxiety, H IV positivity on HAART therapy, congestive heart failure, chronic obstructive pulmonary disease, who comes to [facility] with stroke-like symptoms. Her last known well time was on 05/05/2021. She developed right-sided weakness and slurred speech. She was brought to [facility] via [facility]. Her symptoms appear to fluctuate while on her way to the hospital. Her head CT scan showed no a cute ischemic, hemorrhagic change. After she arrived at [facility] at 12:43, she did have a n NIH stroke scale of 4 on arrival, and after I reviewed the patient's case with the emergency room erika dykes, she was determined to be a candidate for tPA and did receive tPA at 15:45. Her symptoms fo llowing that has resolved largely to very little if any deficits. She does appear to have some coord ination deficits remaining in the right upper extremity. Her repeat head CT scan after her admission showed no evidence of any acute ischemic or hemorrhagic conversion. Echocardiogram shows an ejectio n fraction of 50% to 55%, but likely severe mitral regurgitation and there is left atrial enlargement . She had magnetic resonance angiogram of the brain that showed no significant abnormalities and her brain MRI did not show any acute ischemic or hemorrhagic change as noted. However, the study did sh ow advanced for age, periventricular deep white matter ischemic change. Laboratory Data: Her laboratory studies showed a normal white count of 5.5 with lymphocytes 13, mono cytes 12, hemoglobin 9.2, INR 1.13. Chemistries did show elevated liver function studies of AST 349, ALT 1133, alkaline phos is 194. She has a hepatitis panel pending. Her COVID-19 test is negative. Her drug screen is negative. Her chest x-ray showed mild worsening upper lobe infiltrates, likely r epresenting a pneumonia. Past Medical History: As noted, HIV, depression, COPD, chronic heart failure. Social History: Patient resides at a local prison. No alcohol, tobacco, or IV drug use. Family History: Noncontributory. Review of Systems: The patient denies any recent fevers, chills, nausea, vomiting, any cough, any myalgias, arthralgias, rash, active psychiatric issues. Physical Examination: Vital Signs: Blood pressure 108/74, pulse 119 down to 88, temperature 98, oxygen saturation 93% to 9 8% on 2 L of oxygen by nasal cannula. Respiratory rate 16 to 18. General: Ms. Wells is resting in bed. She is in no significant distress. HEENT: She appears to be normocephalic, atraumatic. Sclerae anicteric. Oropharynx is moist and pin k. Neck: Supple. Chest: Clear. Heart: Regular. Extremities: Show mild edema on the left and more on the right lower extremity, otherwise stasis zora nges noted in the right lower extremity. Neurological: She is alert and oriented to situation, place, and person. Follows commands appropria tely. She has no significant expressive or receptive aphasias. On motor examination, some incoordin ation and dysmetria noted in the right upper extremity compared to the left side. The left and right lower extremity show no significant abnormalities in terms of coordination and strength. She has, h owever, significant stocking-glove loss in the lower and upper extremities. Gait, she is able to amb ulate over 270 feet with a rolling walker and no assistive device, just contact guard required. Assessment: Ms. Wells is a 51-year-old patient who is human immunodeficiency virus positive with nor mal white count. She does have a possible pneumonia and is being treated by primary care physician a nd had what appeared to be a stroke, although she did receive tPA and there is no obvious finding on MRI except for her diffuse atrophy, possibly from chronic small-vessel ischemic disease. She does coronel ve some residual incoordination in the right upper extremity. Plan: The patient may be discharged home with continued HAART therapy for HIV. She may be placed on aspirin 81 mg daily and antibiotics for her pneumonia and her comorbid conditions to be treated as a ppropriate and she may follow up in Dr. Gabriel's office 1 month later. DOC/BEVERLY Voice ID: [id number] Report ID: [id number]
[2021-05-09 04:10] LABS: AST/SGOT 148 U/L (15-37); Albumin 2.6 g/dL (3.4-5.0); Alkaline Phosphatase 175 U/L (45-117); BUN Blood Urea Nitrogen 11 mg/dL (7-18); Bicarbonate 33 mmol/L (21-32); Bilirubin Total 0.5 mg/dL (0.2-1.0); Glucose Level 180 mg/dL (74-106); Potassium 4.1 mmol/L (3.5-5.1); Sodium Level 138 mmol/L (136-145)
[2021-05-09 04:22] LABS: ALT/SGPT 814 U/L (12-78)
[2021-05-09] MEDS: DOLUTEGRAVIR PO SCH (09:00)
[2021-05-09] MEDS: [UNRECOGNIZED DRUG - OTHER] PO SCH (09:00)
[2021-05-09] MEDS: ATOVAQUONE 750 MG/5 ML PO SCH (09:00)
[2021-05-09] MEDS: PRIMAQUINE PHOSPHATE 26.3 MG PO SCH (09:00)
[2021-05-09] MEDS: ABACAVIR PO SCH (09:00)
[2021-05-09] MEDS: LAMIVUDI PO SCH (09:00)
[2021-05-09 09:11] VITALS: O2SAT 95
[2021-05-09] MEDS: NYSTATIN 500,000 UNIT/5 ML UDC PO SCH (09:12)
[2021-05-09] MEDS: PANTOPRAZOLE 40MG TABLET PO SCH (09:12)
[2021-05-09] MEDS: DULOXETINE 20 MG CAP PO SCH (09:13)
[2021-05-09] MEDS: VITAMIN D 5,000 UNIT CAP PO SCH (09:13)
[2021-05-09] MEDS: DOCUSATE NA 100 MG CAP PO SCH (09:13)
[2021-05-09] MEDS: OLANZapine 2.5 MG TAB PO SCH (09:13)
[2021-05-09] MEDS: MULTIVIT W/ MINERAL TAB PO SCH (09:13)
[2021-05-09] MEDS: predniSONE 20 MG TAB PO SCH (09:13)
[2021-05-09] MEDS: CALCIUM CARBONATE CHEW 500MG TAB PO SCH (09:13)
[2021-05-09] MEDS: GABAPENTIN 300 MG CAP PO SCH ×2 (09:13→13:05)
[2021-05-09] MEDS: DULOXETINE 30 MG CAP PO SCH (09:13)
[2021-05-09] MEDS: LORAZEPAM 0.5 MG TABLET PO SCH (09:16)
[2021-05-09] MEDS: FLUCONAZOLE 100 MG TAB PO SCH (09:17)
--- NOTE | 2021-05-09 09:31 | RAD REPORT ---
EXAM DESCRIPTION: US - Abdomen Exam Limited - 05/09/2021 9:03 am CLINICAL HISTORY: Abdominal pain. COMPARISON: None. FINDINGS: The gallbladder wall is not thickened. A gallstone is not seen. The biliary tree is normal caliber. IMPRESSION: Unremarkable gallbladder ultrasound.
[2021-05-09 11:32] LABS: Ferritin 58.1 ng/mL (8-388)
[2021-05-09] MEDS ORDERED: AZITHROMYCIN 250 MG TAB PO SCH (13:00)
--- NOTE | 2021-05-09 13:32 | P.CNS ---
Date of Consult: 05/09/21 Chief Complaint: Right-sided weakness History of Present Illness: The patient is a 51-year-old female with a past medical history of HIV, depression, COPD, and heart failure who was transferred from her half-way to the emergency department secondary to sudden onset right-sided weakness. Patient was found to have a stroke. Infectious disease has been consulted as the patient was also found to have several upper lobe infiltrates noted on chest x-ray concerning for pneumonia. Per chart review patient is noncompliant with her HAART therapy. Unknown what patient's last CD4 count is. Patient's home medications include primaquine and atovaquone with azithromycin. Patient also noted to have elevated LFTs likely secondary to HAART therapy. Patient currently denies shortness of breath, dyspnea, chest pain, nausea/vomiting/diarrhea. Allergies Sulfa (Sulfonamide Antibiotics) Allergy (Verified 05/05/21 19:51) Hives/Rash Home Medications: Abacavir/Dolutegravir/Lamivudi [Triumeq 600-50-300 mg Tablet] 1 each PO DAILY 05/06/21 Abacavir/Dolutegravir/Lamivudi [Triumeq 600-50-300 mg Tablet] 1 tab PO BEDTIME 05/06/21 Atovaquone 750 mg PO BID 05/06/21 Azithromycin [Zithromax] 5 tab PO EVERY 7TH DAY 05/06/21 Budesonide [Pulmicort] 0.5 mg IH BID 05/06/21 Calcium Carbonate [Tums Regular*] 500 mg PO BID 05/06/21 Cholecalciferol (Vitamin D3) [Vitamin D3] 125 mcg PO DAILY 05/06/21 Docusate Sodium 100 mg PO DAILY 05/06/21 Duloxetine HCl [Cymbalta] 20 mg PO BID 05/06/21 Duloxetine HCl [Cymbalta] 30 mg PO BID 05/06/21 Fluconazole [Diflucan] 100 mg PO DAILY 05/06/21 Gabapentin 300 mg PO TID 05/06/21 Ibuprofen [Ibu] 600 mg PO Q6HP PRN 05/06/21 Ipratropium [place] [Atrovent Hfa] 2 inh IH Q8HR PRN 05/06/21 LORazepam [Ativan] 0.5 mg PO BID 05/06/21 Metoprolol Tartrate 25 mg PO DAILY 05/06/21 Multivit-Min/Iron Fum/Folic AC [Multivitamin-Minerals Tablet] 1 tab PO DAILY 05/06/21 Nystatin 100,000 unit PO QID 05/06/21 OLANZapine [Olanzapine] 2.5 mg PO DAILY 05/06/21 Pantoprazole [Protonix Tab] 40 mg PO DAILY 05/06/21 Primaquine Phosphate [Primaquine] 26.3 mg PO DAILY 05/06/21 Trazodone HCl [Desyrel] 100 mg PO BEDTIME PRN PRN 05/06/21 predniSONE [Prednisone] 20 mg PO DAILY 05/06/21 - Past Medical/Surgical History -: HIV -: Depression -: COPD -: Heart failure - Social History Alcohol use: No CD- Drugs: No Caffeine use: Yes Place of Residence: [facility] Review of Systems 10-point ROS is otherwise unremarkable Physical Examination Temp Pulse Resp BP Pulse Ox 98.7 F 103 H 18 94/69 96 05/09/21 12:00 05/09/21 12:00 05/09/21 12:00 05/09/21 12:00 05/09/21 12:00 General: In no apparent distress, Oriented x3 HEENT: Atraumatic, Normocephalic Respiratory: Clear to auscultation bilaterally, Normal air movement Cardiovascular: No edema, Normal pulses, Regular rate/rhythm Gastrointestinal: Normal bowel sounds, Soft and benign Musculoskeletal: No clubbing, No swelling, No contractures Conclusions/Impression: Assessment/plan Pneumonia Chest x-ray showed upper lobe infiltrates concerning for pneumonia -Recommend continuing azithromycin for 5 days HIV on HAART -Elevated liver enzymes, recommend holding antiviral therapy for now. Patient will need to follow-up outpatient with her ID physician. Patient's home medications include primaquine and atovaquone with azithromycin. Unknown how long patient has been on this medication or what her last CD4 count was. -We have ordered a stat CD4 count and I have also contacted the patient's physician Dr. Arlin Alanis and left a message with her office to get past medical records. -Patient afebrile without neutropenia, do not recommend any prophylactic treatment at this time -Patient will need to closely follow-up with IV physician upon discharge Anemia -Continue to monitor H&H Medical management per primary team Plan of care discussed with Dr. Slava Cummins consultation
--- NOTE | 2021-05-09 14:02 | P.DS ---
Admission Date: 05/05/21 Discharge Date: 05/09/21 Disposition: ROUTINE DISCHARGE Discharge Condition: GOOD Reason for Admission: Right-sided weakness Hospital Course: Patient is a 51-year-old female with a known past medical history of HIV currently with unknown CD4 count. She presented from a prison in [facility] where she was found to have an acute onset of right-sided weakness. She received the tPA in the ER. Stroke work-up was negative including the CT head/neck, and brain MRI. She was seen by neurology during the stay. She will be discharged on aspirin alone. She is a poor candidate for high intensity st atin due to does not look like patient has been on aspirin before. She can at least start with ASA. As stated above, patient has a history of HIV. Her current CD4 count is unknown. Infectious disease was consulted to recommend outpatient HAART therapy and they recommended holding off HAART due to transaminasemia. Patient will have to follow-up with her usual ID doctor as outpatient. As per record, she is followed up by Dr. Arlin Alanis whom she will need to see you soon as possible. Her Abd US was negative for cirrhosis. Her hepatitis panel is still pending. Vital Signs/Physical Exam: Temp Pulse Resp BP Pulse Ox 98.7 F 103 H 18 94/69 96 05/09/21 12:00 05/09/21 12:00 05/09/21 12:00 05/09/21 12:00 05/09/21 12:00 General: Alert, In no apparent distress, Cooperative HEENT: Atraumatic, Normocephalic Respiratory: Clear to auscultation bilaterally, Normal air movement Cardiovascular: Regular rate/rhythm, Normal S1 S2 Musculoskeletal: No clubbing, No swelling, No contractures Neurological: Normal speech, Normal affect Laboratory Data at Discharge: WBC 5.50 K/uL (4.3-10.9) D 05/06/21 05:06 Hgb 9.2 g/dL (12.0-15.0) L 05/06/21 05:06 Hct 30.6 % (36.0-45.0) L 05/06/21 05:06 Plt Count 216 K/uL (152-406) 05/06/21 05:06 PT 12.5 SECONDS (9.5-12.5) 05/06/21 05:06 INR 1.13 05/06/21 05:06 APTT 21.5 SECONDS (24.3-36.9) L 05/05/21 13:35 Sodium 138 mmol/L (136-145) 05/09/21 03:25 Potassium 4.1 mmol/L (3.5-5.1) 05/09/21 03:25 BUN 11 mg/dL (7-18) 05/09/21 03:25 Creatinine 0.37 mg/dL (0.55-1.3) L 05/09/21 03:25 Glucose 180 mg/dL (74-106) H 05/09/21 03:25 Phosphorus 2.6 mg/dL (2.5-4.9) 05/06/21 05:06 Magnesium 1.9 mg/dL (1.8-2.4) 05/08/21 09:07 Total Bilirubin 0.5 mg/dL (0.2-1.0) 05/09/21 03:25 AST 148 U/L (15-37) H 05/09/21 03:25 ALT 814 U/L (12-78) H* D 05/09/21 03:25 Alkaline Phosphatase 175 U/L (45-117) H 05/09/21 03:25 Triglycerides 185 mg/dL (<150) H 05/06/21 05:06 Cholesterol 168 mg/dL (<200) 05/06/21 05:06 HDL Cholesterol 16 mg/dL (40-60) L 05/06/21 05:06 Cholesterol/HDL Ratio 10.50 05/06/21 05:06 Home Medications: Atovaquone 750 mg PO BID 05/06/21 Azithromycin [Zithromax] 5 tab PO EVERY 7TH DAY 05/06/21 Budesonide [Pulmicort] 0.5 mg IH BID 05/06/21 Calcium Carbonate [Tums Regular*] 500 mg PO BID 05/06/21 Cholecalciferol (Vitamin D3) [Vitamin D3] 125 mcg PO DAILY 05/06/21 Docusate Sodium 100 mg PO DAILY 05/06/21 Duloxetine HCl [Cymbalta] 20 mg PO BID 05/06/21 Duloxetine HCl [Cymbalta] 30 mg PO BID 05/06/21 Fluconazole [Diflucan] 100 mg PO DAILY 05/06/21 Gabapentin 300 mg PO TID 05/06/21 Ipratropium [place] [Atrovent Hfa] 2 inh IH Q8HR PRN 05/06/21 LORazepam [Ativan*] 0.5 mg PO BID 05/06/21 Metoprolol Tartrate 25 mg PO DAILY 05/06/21 Multivit-Min/Iron Fum/Folic AC [Multivitamin-Minerals Tablet] 1 tab PO DAILY 05/06/21 Nystatin 100,000 unit PO QID 05/06/21 OLANZapine [Olanzapine] 2.5 mg PO DAILY 05/06/21 Pantoprazole [Protonix Tab*] 40 mg PO DAILY 05/06/21 Primaquine Phosphate [Primaquine] 26.3 mg PO DAILY 05/06/21 Trazodone HCl [Desyrel] 100 mg PO BEDTIME PRN PRN 05/06/21 predniSONE [Prednisone] 20 mg PO DAILY 05/06/21 Followup: Leon Oliveros MD [Primary Care Provider] -
[2021-05-09 15:48] VITALS: BP 98/66; TEMP 98.1
[2021-05-10 20:06] LABS: HBsAG Nonreactive (Nonreactive)
[2021-05-12] MEDS ORDERED: AZITHROMYCIN 250 MG TAB PO SCH (09:00)
== END 2021-05-09 17:55 | DRG 56 ==
LOC: ER 12:41 → ERHOLD 17:32 → 3RD-ICU 19:37 → UNDODISIN 05-06 17:08 → 4TH 05-06 23:50
PROVIDERS: ADMIT Internal Medicine; ATTEND Internal Medicine
DX: G81.91 Hemiplegia, unspecified affecting right dominant side (principal); J18.9 Pneumonia, unspecified organism; B17.9 Acute viral hepatitis, unspecified; J44.0 Chronic obstructive pulmonary disease with (acute) lower respiratory infection; D64.9 Anemia, unspecified; F41.9 Anxiety disorder, unspecified; F17.210 Nicotine dependence, cigarettes, uncomplicated; R47.81 Slurred speech; R79.89 Other specified abnormal findings of blood chemistry; Z21 Asymptomatic human immunodeficiency virus [HIV] infection status; Z88.1 Allergy status to other antibiotic agents; Z79.899 Other long term (current) drug therapy; Z79.52 Long term (current) use of systemic steroids; Z79.82 Long term (current) use of aspirin; Z91.19 Patient's noncompliance with other medical treatment and regimen; Z20.822 Contact with and (suspected) exposure to COVID-19
CPT/HCPCS: 36415; 70450; 70496; 70498; 70544; 70549; 70553; 71045; 71046; 72125; 74177; 76705; 80048; 80053; 80061; 80074; 80076; 80307; 82103; 82390; 82728; 82947; 83540; 83735; 84100; 84132; 84443; 84450; 84460; 84466; 85025; 85610; 85652; 85730; 86038; 86255; 86361; 86704; 92977; 93005; 93306; 94760; 96365; 96366; 96375; 97112; 97116; 97161; 97530; 99285; A9577; J2997; J3475; J3480; J7030; J7512; Q9967; U0003